=== PATIENT | female | born 1985 | race Caucasian/White ===

== ENCOUNTER 2022-05-29 12:36 | Inpatient (IN) ==
[2022-05-29] MEDS ORDERED: KETOROLAC TROMETHAMINE 15 MG/ML VIAL IV STA (13:15)
[2022-05-29] MEDS ORDERED: ONDANSETRON INJ 2 MG/ML 2 ML VIAL IV STA (13:15)
[2022-05-29] MEDS ORDERED: SODIUM CHLORIDE 0.9% 1000ML 1,000 ML IV ONE (13:15)
[2022-05-29 13:34] LABS: Hematocrit (blood only) 41.8 % (34.1-44.9); Mean Corpuscular Hemoglobin 30.8 pg (25.0-34.0); Mean Corpuscular Hgb Conc 33.5 g/dL (32.0-36.0); Mean Corpuscular Volume 92.1 fL (80.0-100.0); Mean Platelet Volume 10.3 fL (9.4-12.3); Platelet Count 397 K/uL (130-400); RDW Coefficient of Variation 13.3 % (11.5-14.5); RDW Standard Deviation 45.1 fL (36.4-46.3); Red Blood Count 4.54 M/uL (3.93-5.22); White Blood Count 18.63 K/ul (4.8-10.8)
--- NOTE | 2022-05-29 13:36 | Emergency Department Note ---
History of Present Illness General Chief complaint: Flank Pain Stated complaint: FLANK PAIN Time Seen by Provider: 05/29/22 12:44 Source: patient Mode of arrival: ambulatory Limitations: no limitations History of Present Illness Maximum Pain Intensity: 10 This patient is a 37-year-old female who presents to the emergency department for evaluation of left flank pain. Patient reports that she woke up this morning with some mild pain in the left flank which became much sharper throughout the morning. Pain does not radiate anywhere. She has associated vomiting. She did notice some difficulty urinating. Denies fever/chills. She does report a history of kidney stones which feels similar. She is from [facility] and has a urologist there. Home Medications Medication Instructions Recorded Confirmed Type albuterol sulfate 90 mcg/actuation 2 puff inhalation QID PRN 05/29/22 05/29/22 History aerosol inhaler (Ventolin HFA) Bronchospasm colestipol 1 gram tablet 1 g PO BID 05/29/22 05/29/22 History duloxetine 20 mg capsule,delayed 20 mg PO BID 05/29/22 05/29/22 History release fexofenadine 180 mg tablet 180 mg PO DAILY 05/29/22 05/29/22 History losartan 25 mg tablet 25 mg PO DAILY 05/29/22 05/29/22 History pantoprazole 40 mg tablet,delayed 40 mg PO DAILY 05/29/22 05/29/22 History release topiramate 25 mg tablet 25 mg PO DAILY 05/29/22 05/29/22 History zonisamide 100 mg capsule 100 mg PO HS 05/29/22 05/29/22 History Allergies Allergy/AdvReac Type Severity Reaction Status Date / Time latex Allergy Intermediate Rash Verified 05/29/22 20:40 aspirin AdvReac Mild Nausea Verified 05/29/22 20:40 Past Med/Surg History Medical History Allergies Cigarette smoker Depression GERD (gastroesophageal reflux disease) Hyperlipidemia Hypertension Migraine Nephrolithiasis Seizure disorder patient denies diagnosis, no longer taking zonisamide Surgical History Previous section Family History Father Kidney stones Social History Smoking Status: Current every day smoker Feels Safe at Home: Yes Review of Systems A total of 10 systems reviewed and were otherwise negative Physical Exam Vital Signs Vital Signs - 24 hr 05/29/22 12:40 05/29/22 12:57 05/29/22 13:02 Temperature 37.1 C Temperature Source Temporal Artery Scan Pulse Rate 97 H Pulse Rate [Apical] 98 H 98 H Pulse Rhythm [Apical] Regular Pulse Strength [Apical] Normal Respiratory Rate 20 18 19 Respiratory Effort / Characteristics Non-Labored Spontaneous Non-Labored Spontaneous Non-Labored Spontaneous Respiratory Depth Normal Normal Normal Respiratory Pattern Regular Regular Regular Blood Pressure 100/47 L Blood Pressure [Left Arm] 96/48 L 123/62 Blood Pressure Mean 64 Blood Pressure Mean [Left Arm] 64 82 Blood Pressure Position [Left Arm] Lying Pulse Oximetry 100 98 99 Oxygen Delivery Method Room Air Room Air Room Air Sepsis Recent Fever Within 48 Hours No Sepsis New/Unexplained Change in Mental Status No Sepsis Action Taken by Nursing No Action Required 05/29/22 13:17 05/29/22 15:00 05/29/22 17:00 Temperature Temperature Source Pulse Rate Pulse Rate [Apical] 76 87 Pulse Rhythm [Apical] Regular Regular Pulse Strength [Apical] Normal Normal Respiratory Rate 19 19 Respiratory Effort / Characteristics Non-Labored Spontaneous Non-Labored Spontaneous Respiratory Depth Normal Normal Respiratory Pattern Regular Regular Blood Pressure Blood Pressure [Left Arm] 119/62 106/81 Blood Pressure Mean Blood Pressure Mean [Left Arm] 81 89 Blood Pressure Position [Left Arm] Lying Lying Pulse Oximetry 98 98 99 Oxygen Delivery Method Room Air Room Air Room Air Sepsis Recent Fever Within 48 Hours Sepsis New/Unexplained Change in Mental Status Sepsis Action Taken by Nursing 05/29/22 19:00 Temperature Temperature Source Pulse Rate Pulse Rate [Apical] 105 H Pulse Rhythm [Apical] Pulse Strength [Apical] Respiratory Rate 19 Respiratory Effort / Characteristics Respiratory Depth Respiratory Pattern Blood Pressure Blood Pressure [Left Arm] 114/59 L Blood Pressure Mean Blood Pressure Mean [Left Arm] 77 Blood Pressure Position [Left Arm] Pulse Oximetry 98 Oxygen Delivery Method Sepsis Recent Fever Within 48 Hours Sepsis New/Unexplained Change in Mental Status Sepsis Action Taken by Nursing VITALS: Vitals are noted on the nurse's note and reviewed by myself. GENERAL: This is a 37-year-old female, in no acute distress, well-developed well-nourished. SKIN: The skin was without rashes. EYES: Pupils equal round and reactive to light and accommodation. MOUTH: Mucous membranes moist. NECK: Supple without nuchal rigidity. No lymphadenopathy. HEART: Regular rate and rhythm without murmurs gallops or rubs. LUNGS: Clear to auscultation bilaterally without wheezes, rales or rhonchi. ABDOMEN: Positive bowel sounds x 4. Soft, mild tenderness to palpation in the left upper quadrant. Left CVA tenderness. NEURO: Patient alert and oriented to person place and time. Course Administered Medications Discontinued Medications Sodium Chloride (Nss 1000ml) 1,000 mls @ 999 mls/hr IV .Q1H1M ONE Stop: 05/29/22 14:15 Last Infusion: 05/29/22 14:42 Dose: 0 mls/hr Documented By: Admin: 05/29/22 13:41 Dose: 999 mls/hr Documented By: SAMMI Ceftriaxone Sodium (Rocephin) 1,000 mg in 50 mls @ 100 mls/hr IV NOW STA Stop: 05/29/22 17:04 Last Infusion: 05/29/22 17:47 Dose: 0 mls/hr Documented By: Admin: 05/29/22 17:01 Dose: 100 mls/hr Documented By: SAMMI Ketorolac Tromethamine (Ketorolac Tromethamine 15 Mg/Ml Vial) 15 mg IV NOW STA Stop: 05/29/22 13:16 Last Admin: 05/29/22 13:41 Dose: 15 mg Documented By: SAMMI Morphine Sulfate (Morphine Sulfate 4 Mg/Ml 1 Ml Carp\Vial) 4 mg IV NOW STA Stop: 05/29/22 17:26 Last Admin: 05/29/22 17:30 Dose: 4 mg Documented By: KEL Ondansetron HCl (Ondansetron Inj 2 Mg/Ml 2 Ml Vial) 4 mg IV NOW STA Stop: 05/29/22 13:16 Last Admin: 05/29/22 13:41 Dose: 4 mg Documented By: SAMMI Medical Decision Making Differential Diagnosis Differential diagnosis includes renal calculus, pyelonephritis, musculoskeletal pain, ruptured AAA, aortic dissection, diverticulitis, perforated viscus, bowel obstruction, biliary pathology, pancreatitis, PE, pneumonia, pneumothorax, trauma, herpes zoster, malignancy, among others. Home Medications Current Medication List: was personally reviewed by me Laboratory Data Attestation: I reviewed the patient's lab results. Result diagrams: 05/29/22 12:35 05/29/22 12:35 Lab Results 05/29/22 05/29/22 05/29/22 Range/Units 12:35 12:35 15:31 WBC 18.63 H (4.8-10.8) K/ul RBC 4.54 (3.93-5.22) M/uL Hgb 14.0 (12.0-16.0) g/dl Hct 41.8 (34.1-44.9) % MCV 92.1 (80.0-100.0) fL MCH 30.8 (25.0-34.0) pg MCHC 33.5 (32.0-36.0) g/dL RDW Std Deviation 45.1 (36.4-46.3) fL RDW Coeff of Kalpesh 13.3 (11.5-14.5) % Plt Count 397 (130-400) K/uL MPV 10.3 (9.4-12.3) fL Immature Gran % (Auto) 0.5 % Neut % (Auto) 90.5 % Lymph % (Auto) 4.2 % [place] % (Auto) 4.0 % Eos % (Auto) 0.4 % Baso % (Auto) 0.4 % Neut # (Auto) 16.85 H (1.4-6.5) K/uL Lymph # (Auto) 0.79 L (1.2-3.4) K/uL [place] # (Auto) 0.75 (0.24-0.82) K/uL Eos # (Auto) 0.08 (0-0.50) K/uL Baso # (Auto) 0.07 (0-0.2) K/uL Immature Gran # (Auto) 0.09 H (0.00-0.02) K/uL Toxic Vacuolation Occasional Sodium 139 (136-145) mmol/L Potassium 3.3 L (3.5-5.1) mmol/L Chloride 104 (98-107) mmol/L Carbon Dioxide 25 (21-32) mmol/L Anion Gap 10 (3-11) BUN 13 (6-23) mg/dl Creatinine 0.86 (0.6-1.2) mg/dl Est Cr Clr Drug Dosing Not Reportable Est GFR ( Amer) 101.4 ml/min Est GFR (Non-Af Amer) 87.5 ml/min BUN/Creatinine Ratio 15.1 (10-20) Glucose 102 H (70-99(Fasting)) mg/dl Calcium 9.3 (8.5-10.1) mg/dl Total Bilirubin 0.7 (0.2-1.0) mg/dl AST 15 (13-39) U/L ALT 25 (7-52) U/L Alkaline Phosphatase 105 H (34-104) U/L Total Protein 7.8 (6.0-8.3) gm/dl Albumin 4.0 (3.4-5.0) gm/dl Globulin 3.8 (2.5-4.0) gm/dl Albumin/Globulin Ratio 1.1 (0.9-2) Urine Color Dark Yellow Urine Appearance Cloudy A (Clear) Urine pH 6.5 (4.5-7.5) Ur Specific [place] 1.021 (1.000-1.030) Urine Protein 1+ H (Negative) Urine Glucose (UA) Negative (Negative) Urine Ketones 1+ H (Negative) Urine Blood 3+ H (Negative) Urine Nitrite Positive A (Negative) Urine Bilirubin Negative (Negative) Urine Urobilinogen Negative (Negative) Ur Leukocyte Esterase 2+ H (Negative) Urine WBC (Auto) >30 H (0-5) /hpf Urine RBC (Auto) >30 H (0-4) /hpf U Hyaline Cast (Auto) 1-5 (0-5) /lpf U Epithel Cells (Auto) >30 H (0-5) /lpf Urine Bacteria (Auto) 4+ H (Negative) POC Ur Test (NEG) SARS-CoV-2, RNA, NAAT (NEGATIVE) 05/29/22 05/29/22 Range/Units 15:31 16:45 WBC (4.8-10.8) K/ul RBC (3.93-5.22) M/uL Hgb (12.0-16.0) g/dl Hct (34.1-44.9) % MCV (80.0-100.0) fL MCH (25.0-34.0) pg MCHC (32.0-36.0) g/dL RDW Std Deviation (36.4-46.3) fL RDW Coeff of Kalpesh (11.5-14.5) % Plt Count (130-400) K/uL MPV (9.4-12.3) fL Immature Gran % (Auto) % Neut % (Auto) % Lymph % (Auto) % [place] % (Auto) % Eos % (Auto) % Baso % (Auto) % Neut # (Auto) (1.4-6.5) K/uL Lymph # (Auto) (1.2-3.4) K/uL [place] # (Auto) (0.24-0.82) K/uL Eos # (Auto) (0-0.50) K/uL Baso # (Auto) (0-0.2) K/uL Immature Gran # (Auto) (0.00-0.02) K/uL Toxic Vacuolation Sodium (136-145) mmol/L Potassium (3.5-5.1) mmol/L Chloride (98-107) mmol/L Carbon Dioxide (21-32) mmol/L Anion Gap (3-11) BUN (6-23) mg/dl Creatinine (0.6-1.2) mg/dl Est Cr Clr Drug Dosing Est GFR ( Amer) ml/min Est GFR (Non-Af Amer) ml/min BUN/Creatinine Ratio (10-20) Glucose (70-99(Fasting)) mg/dl Calcium (8.5-10.1) mg/dl Total Bilirubin (0.2-1.0) mg/dl AST (13-39) U/L ALT (7-52) U/L Alkaline Phosphatase (34-104) U/L Total Protein (6.0-8.3) gm/dl Albumin (3.4-5.0) gm/dl Globulin (2.5-4.0) gm/dl Albumin/Globulin Ratio (0.9-2) Urine Color Urine Appearance (Clear) Urine pH (4.5-7.5) Ur Specific [place] (1.000-1.030) Urine Protein (Negative) Urine Glucose (UA) (Negative) Urine Ketones (Negative) Urine Blood (Negative) Urine Nitrite (Negative) Urine Bilirubin (Negative) Urine Urobilinogen (Negative) Ur Leukocyte Esterase (Negative) Urine WBC (Auto) (0-5) /hpf Urine RBC (Auto) (0-4) /hpf U Hyaline Cast (Auto) (0-5) /lpf U Epithel Cells (Auto) (0-5) /lpf Urine Bacteria (Auto) (Negative) POC Ur Test NEG (NEG) SARS-CoV-2, RNA, NAAT NEGATIVE (NEGATIVE) Imaging Data Attestation: I personally reviewed and interpreted this imaging study as follows: Radiologist's Impression: Abdomen/Pelvis CT 05/29/22 13:[address] WITHOUT CONTRAST CT DOSE: 292.03 mGy.cm HISTORY: Acute left-sided flank pain left flank pain TECHNIQUE: Multiaxial CT images of the abdomen and pelvis were performed without contrast. A dose lowering technique was utilized adhering to the principles of ALARA. COMPARISON STUDY: None. FINDINGS: Clear lung bases. Mild dependent subsegmental bibasilar atelectasis. No pneumatosis or pneumoperitoneum. The unenhanced spleen, pancreas, gallbladder, adrenal glands and liver are within normal limits with a questioned ill-defined slightly hypodense 1.7 cm indeterminate lesion of the right hepatic lobe on image 25 of series 2. Greater than 10 nonobstructing calculus of the right kidney measure up to 3 mm. Greater than 10 nonobstructing calculi left kidney measure up to 3 mm. Mild to moderate left-sided hydroureteronephrosis with reactive perinephric and periureteral stranding secondary to an obstructing 6 x 5 x 8 mm calculus of the left ureter at the level of L3. No definite additional ureteral calculi identified. Numerous pelvic basin calcifications likely represent phleboliths. Additional distal ureteral calculi are considered less likely. Marker uterus and adnexa. Aorta and IVC are unremarkable. Nonspecific mildly enlarged ret roperitoneal lymph nodes include an 11 mm periaortic lymph node of the kidney on image 170 series 3. No bowel obstruction or bowel wall thickening. The majority of the large bowel is decompressed. Normal appendix. Tiny fat filled periumbilical hernia with mild inflammatory stranding, diastases of 9 mm. Soft tissues are within normal limits. There is no acute fracture. Mild lumbar levoscoliosis. IMPRESSION: 1. Mild to moderate left-sided hydroureteronephrosis with an obstructing 8 mm calculus of the proximal left ureter at the level of L3. 2. Numerous nonobstructing bilateral renal calculi. 3. No bowel obstruction or bowel wall thickening. Normal appendix. 4. Mild nonspecific retroperitoneal lymphadenopathy. ACT 112: Negative or not required by law. The above report was generated using voice recognition software. It may contain grammatical, syntax or spelling errors. Electronically signed by: Conrado Paris M.D. 05/29/2022 2:12 PM MDM Narrative Continuous filtration operator: Order was placed for continuous filtration operator. Patient was placed on the filtration operator. Patient was noted to be in normal sinus rhythm at an initial rate of 95 bpm. The patient is a 37-year-old female who presents today complaining of left flank pain. CT scan showed an 8 mm left proximal ureteral stone. Urinalysis suggestive of infection with the presence of 4+ bacteria, leukocytes, leukocyte esterase and positive nitrates. Patient does not appear to be septic on initial evaluation. She is nontoxic in appearance and afebrile. She does have a leukocytosis of 18,000. Given concurrent obstructing kidney stone with infection, patient will need to be admitted for further care. Discussed the case with Dr. Nick of urology, who recommended antibiotics and will take her to the OR if she worsens. Patient given ceftriaxone. Patient discussed with the [facility] service who agreed to evaluate the patient for further care. Impression & Plan Calculus of proximal left ureter, UTI (urinary tract infection) Discharge Plan Visit Data Chief Complaint: Flank Pain Stated Complaint: FLANK PAIN ED Provider: Rj Brown ED Midlevel Provider: Tiffanie Gu Discharge Problem: Calculus of proximal left ureter, UTI (urinary tract infection) Discharge Instructions Interventions: ED Discharge Assessment Last Done: 05/29/22 20:04 Forms Stand Alone Forms: My [facility] Prescriptions Prescriptions: No Action topiramate 25 mg tablet 25 mg PO DAILY fexofenadine 180 mg tablet 180 mg PO DAILY zonisamide 100 mg capsule 100 mg PO HS pantoprazole 40 mg tablet,delayed release (DR/EC) 40 mg PO DAILY losartan 25 mg tablet 25 mg PO DAILY colestipol 1 gram tablet 1 g PO BID duloxetine 20 mg capsule,delayed release(DR/EC) 20 mg PO BID albuterol sulfate [Ventolin HFA] 90 mcg/actuation HFA aerosol inhaler 2 puff INHALATION QID PRN (Reason: Bronchospasm) Referrals Referrals: PCP,NO [Primary Care Provider] -
[2022-05-29 13:52] LABS: Alanine Aminotransferase 25 U/L (7-52); Albumin Globulin Ratio 1.1 (0.9-2); Alkaline Phosphatase 105 U/L (34-104); Anion Gap 10 (3-11); Aspartate Aminotransferase 15 U/L (13-39); BUN Creatinine Ratio 15.1 (10-20); Bilirubin,Total 0.7 mg/dl (0.2-1.0); Blood Urea Nitrogen 13 mg/dl (6-23); Calcium 9.3 mg/dl (8.5-10.1); Carbon Dioxide 25 mmol/L (21-32); Chloride 104 mmol/L (98-107); Est GFR (African American) 101.4 ml/min; Est GFR (Non-African American) 87.5 ml/min; Globulin 3.8 gm/dl (2.5-4.0); Glucose 102 mg/dl (70-99(Fasting)); Potassium 3.3 mmol/L (3.5-5.1); Sodium 139 mmol/L (136-145); Total Protein 7.8 gm/dl (6.0-8.3)
[2022-05-29 13:53] LABS: Basophils # (auto) 0.07 K/uL (0-0.2); Basophils % (auto) 0.4 %; Eosinophils # (auto) 0.08 K/uL (0-0.50); Eosinophils % (auto) 0.4 %; Immature Granulocytes # (auto) 0.09 K/uL (0.00-0.02); Immature Granulocytes % (auto) 0.5 %; Lymphocytes # (auto) 0.79 K/uL (1.2-3.4); Lymphocytes % (auto) 4.2 %; Monocytes # (auto) 0.75 K/uL (0.24-0.82); Neutrophils # (auto) 16.85 K/uL (1.4-6.5); Neutrophils % (auto) 90.5 %; Toxic Vacuolation Occasional
--- NOTE | 2022-05-29 14:13 | CT Scan Report ---
ABDOMEN AND PELVIS CT WITHOUT CONTRAST CT DOSE: 292.03 mGy.cm HISTORY: Acute left-sided flank pain left flank pain TECHNIQUE: Multiaxial CT images of the abdomen and pelvis were performed without contrast. A dose lo wering technique was utilized adhering to the principles of ALARA. COMPARISON STUDY: None. FINDINGS: Clear lung bases. Mild dependent subsegmental bibasilar atelectasis. No pneumatosis or pneumoperitone um. The unenhanced spleen, pancreas, gallbladder, adrenal glands and liver are within normal limits w ith a questioned ill-defined slightly hypodense 1.7 cm indeterminate lesion of the right hepatic lobe on image 25 of series 2. Greater than 10 nonobstructing calculus of the right kidney measure up to 3 mm. Greater than 10 nonob structing calculi left kidney measure up to 3 mm. Mild to moderate left-sided hydroureteronephrosis w ith reactive perinephric and periureteral stranding secondary to an obstructing 6 x 5 x 8 mm calculus of the left ureter at the level of L3. No definite additional ureteral calculi identified. Numerous pelvic basin calcifications likely represent phleboliths. Additional distal ureteral calculi are cons idered less likely. Marker uterus and adnexa. Aorta and IVC are unremarkable. Nonspecific mildly enla rged retroperitoneal lymph nodes include an 11 mm periaortic lymph node of the kidney on image 170 se sandrine 3. No bowel obstruction or bowel wall thickening. The majority of the large bowel is decompressed. Lety l appendix. Tiny fat filled periumbilical hernia with mild inflammatory stranding, diastases of 9 mm. Soft tissues are within normal limits. There is no acute fracture. Mild lumbar levoscoliosis. IMPRESSION: 1. Mild to moderate left-sided hydroureteronephrosis with an obstructing 8 mm calculus of the proxima l left ureter at the level of L3. 2. Numerous nonobstructing bilateral renal calculi. 3. No bowel obstruction or bowel wall thickening. Normal appendix. 4. Mild nonspecific retroperitoneal lymphadenopathy. ACT 112: Negative or not required by law. The above report was generated using voice recognition software. It may contain grammatical, syntax o r spelling errors. Electronically signed by: Conrado Paris M.D. 05/29/2022 2:12 PM
[2022-05-29 16:15] LABS: Appearance Urine Cloudy (Clear); Bacteria Urine Automated 4+ (Negative); Bilirubin Urine Negative (Negative); Blood Urine 3+ (Negative); Color Urine Dark Yellow; Epithelial Cell Urine Auto >30 /lpf (0-5); Glucose Urine UA Negative (Negative); Ketones Urine 1+ (Negative); Leukocyte Esterase Urine 2+ (Negative); Nitrite Urine Positive (Negative); Protein Urine 1+ (Negative); RBC Urine Automated >30 /hpf (0-4); Specific Gravity Urine 1.021 (1.000-1.030); Urobilinogen Urine Negative (Negative); WBC Urine Automated >30 /hpf (0-5); pH Urine 6.5 (4.5-7.5)
[2022-05-29] MEDS ORDERED: cefTRIAXone SODIUM 1,000 MG/50 ML BAG IV STA (16:35)
--- NOTE | 2022-05-29 17:14 | History & Physical Report ---
Date of Service May 29, 2022 Assessment & Plan (1) Hydronephrosis with urinary obstruction due to ureteral calculus: Plan: - 8 mm left ureteral stone seen with moderate hydroureteronephrosis. - With a UTI but does not appear septic. - IV Tylenol for mild pain and fever, IV morphine for moderate to severe pain. Antiemetics ordered. Supportive IVF. - Flomax HS. - Urology consulted, plan for urologic procedure in a.m., sooner if patient clinically deteriorates. - Full liquid diet now, NPO at midnight. (2) UTI (urinary tract infection): Plan: - WBC 18.63, UA with nitrate, leuk esterase, WBCs, bacteria. - Treatment with Rocephin, follow blood and urine cultures. - Patient is being treated for renal stone/hydronephrosis as above. (3) Nephrolithiasis: Plan: - In addition to develop obstructing stone, there are numerous bilateral, nonobstructing renal calculi seen. - Patient reports she has routine follow-up for her kidney stones with provider in [place]. (4) Hypertension: Plan: - On losartan 25 mg at home, will hold this given low pressures and to avoid inducing CYNTHIA on top of UTI w/ obstructing stone. (5) Hyperlipidemia: Plan: - Continue Colestid 1 mg BID, okay to hold tomorrow for procedure. (6) GERD (gastroesophageal reflux disease): Plan: - Continue Protonix 40 mg daily, will give IV for tomorrow dose. (7) Depression: Plan: - Continue Cymbalta 20 mg twice daily, okay to hold tomorrow for procedure. (8) Migraine: Plan: - Continue Topamax 25 mg daily, okay to hold tomorrow for procedure. (9) Allergies: Plan: - Continue Raisa 180 mg daily, okay to hold tomorrow for procedure. (10) Seizure disorder: Plan: - Medication list states patient is taking zonisamide PO HS for seizure, however patient states she has been off this for some time, not actually diagnosed with seizure disorder. Plan - Admit to med/surg. - SCDs for VTE ppx. - Full Code. History of Present Illness Chief Complaint: Back pain, chills, nausea x 1 day Primary Care Provider: NO PCP Jazzy Multani is a 37-year-old female with past medical history significant for hypertension, hyperlipidemia, GERD, migraine headaches, depression, and kidney stones who presents today with flank pain. She is from the [facility], here temporarily for work at the local [employer]. Two weeks ago, she has had some mild crampy back pain, which she attributed to her period which had recently started. Her pain was always very mild and mangeable, eventually resolving and her period ended two days ago, however today she redeveloped left-sided low back pain and hematuria. Her back pain has quickly become very sharp and more severe ove the course of the harvinder, and is associated with subjective fever and chills over the past 24 hours. She is nauseous and had a few episodes of nonbloody emesis. She denies dysuria or urinary retention. She has taken Tylenol and ibuprofen with no relief. She has a history of renal stones, has had undergone lithotripsy twice, most recently in 2012 at an outside hospital and has passed several stones on her own. In ED, she presents tachycardic with heart rate in the 90s, low/normotensive BPs, otherwise signs within normal limits. Labs significant for leukocytosis, 18.63, potassium 3.3, UA with blood, nitrates, leuk esterase, WBCs and bacteria. Blood and urine cultures collected, pending. CT A/P reveals mild to moderate left-sided hydroureteronephrosis with obstructing 8 mm calculus in proximal left ureter, with numerous nonobstructing bilateral renal calculi and mild retroperitoneal lymphadenopathy. No evidence of bowel obstruction or bowel wall thickening, appendix appears normal. Allergies Allergy/AdvReac Type Severity Reaction Status Date / Time latex Allergy Intermediate Rash Verified 05/29/22 20:40 aspirin AdvReac Mild Nausea Verified 05/29/22 20:40 Home Medications Medication Instructions Recorded Confirmed Type albuterol sulfate 90 mcg/actuation 2 puff inhalation QID PRN 05/29/22 05/29/22 History aerosol inhaler (Ventolin HFA) Bronchospasm colestipol 1 gram tablet 1 g PO BID 05/29/22 05/29/22 History duloxetine 20 mg capsule,delayed 20 mg PO BID 05/29/22 05/29/22 History release fexofenadine 180 mg tablet 180 mg PO DAILY 05/29/22 05/29/22 History losartan 25 mg tablet 25 mg PO DAILY 05/29/22 05/29/22 History pantoprazole 40 mg tablet,delayed 40 mg PO DAILY 05/29/22 05/29/22 History release topiramate 25 mg tablet 25 mg PO DAILY 05/29/22 05/29/22 History zonisamide 100 mg capsule 100 mg PO HS 05/29/22 05/29/22 History Past Med/Surg History Medical History Allergies Cigarette smoker Depression GERD (gastroesophageal reflux disease) Hyperlipidemia Hypertension Migraine Nephrolithiasis Seizure disorder patient denies diagnosis, no longer taking zonisamide Surgical History Previous section Family History Father Kidney stones Social History Smoking Status: Current every day smoker Second Hand Exposure: Yes; Hx Alcohol Use: No Hx Substance Use: No Preferred Language: Sinhala [employer] Required: No Beliefs That Will Affect Care: None Current Living Situation: Boarding Home Current Living Situation Comment: travels 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 fairs and lives in a boarding house Feels Safe at Home: Yes Assistive Devices: None Review of Systems Review of Systems: Constitutional: Fever/chills x24 hours; no weakness, fatigue, myalgias, anorexia, night sweats Eyes: No diplopia, no worsening or blurred vision ENT: normal hearing, no trouble swallowing Respiratory: No cough, sputum, dyspnea at rest or on exertion Cardiovascular: No chest pain, tightness or palpitations Abdomen: Nausea, vomiting since last evening; no no pain, diarrhea or constipation : Hematuria x1 day; no dysuria, increased urgency/frequency, urinary retention Musculoskeletal left lower back pain x2 weeks, worse today; no joint pain, calf pain, swelling Neurologic: No weakness, numbness/tingling, or balance problems Psychiatric: No anxiety or depression Skin: No rash or itch Physical Exam Physical Exam: General: awake, alert, no apparent distress Head: Normocephalic, atraumatic ENT: PERRL, EOMI, no pharyngeal exudate, mucous membranes moist Chest: Clear to auscultation, on room air, no adventitious breath sounds Cardiac: Regular rate and rhythm, no murmur, no JVD, normal peripheral pulses, good capillary refill Abdominal: L CVA tenderness; NABS x 4 quadrants, soft, nontender to palpation, no rebound, guarding or tenderness Extremities: Normal inspection, no peripheral edema or erythema, calfs nonte nder to palpation Psych: Normal mood and affect Neuro: AAO x 3, strength intact bilaterally and rated 5/5, no motor deficits, speech is clear, no peripheral sensory deficits Skin: no rash or erythema Results & Data Results & Data ([facility]) Vital Signs (Past 12 Hours) Vital Signs Temp Pulse Pulse Resp BP BP Pulse Ox 05/29/22 15:00 76 19 119/62 98 05/29/22 13:17 98 05/29/22 13:02 98 H 19 123/62 99 05/29/22 12:57 98 H 18 96/48 L 98 05/29/22 12:40 37.1 C 97 H 20 100/47 L 100 O2 Del Method 05/29/22 15:00 Room Air 05/29/22 13:17 Room Air 05/29/22 13:02 Room Air 05/29/22 12:57 Room Air 05/29/22 12:40 Room Air Laboratory Results Abnormal lab results 05/29/22 05/29/22 05/29/22 Range/Units 12:35 12:35 15:31 WBC 18.63 H (4.8-10.8) K/ul Neut # (Auto) 16.85 H (1.4-6.5) K/uL Lymph # (Auto) 0.79 L (1.2-3.4) K/uL Immature Gran # (Auto) 0.09 H (0.00-0.02) K/uL Potassium 3.3 L (3.5-5.1) mmol/L Glucose 102 H (70-99(Fasting)) mg/dl Alkaline Phosphatase 105 H (34-104) U/L Urine Appearance Cloudy A (Clear) Urine Protein 1+ H (Negative) Urine Ketones 1+ H (Negative) Urine Blood 3+ H (Negative) Urine Nitrite Positive A (Negative) Ur Leukocyte Esterase 2+ H (Negative) Urine WBC (Auto) >30 H (0-5) /hpf Urine RBC (Auto) >30 H (0-4) /hpf U Epithel Cells (Auto) >30 H (0-5) /lpf Urine Bacteria (Auto) 4+ H (Negative) Diagnostic Findings Abdomen/Pelvis CT 05/29/22 13:[address] WITHOUT CONTRAST CT DOSE: 292.03 mGy.cm HISTORY: Acute left-sided flank pain left flank pain TECHNIQUE: Multiaxial CT images of the abdomen and pelvis were performed without contrast. A dose lowering technique was utilized adhering to the principles of ALARA. COMPARISON STUDY: None. FINDINGS: Clear lung bases. Mild dependent subsegmental bibasilar atelectasis. No pneumatosis or pneumoperitoneum. The unenhanced spleen, pancreas, gallbladder, adrenal glands and liver are within normal limits with a questioned ill-defined slightly hypodense 1.7 cm indeterminate lesion of the right hepatic lobe on image 25 of series 2. Greater than 10 nonobstructing calculus of the right kidney measure up to 3 mm. Greater than 10 nonobstructing calculi left kidney measure up to 3 mm. Mild to moderate left-sided hydroureteronephrosis with reactive perinephric and periureteral stranding secondary to an obstructing 6 x 5 x 8 mm calculus of the left ureter at the level of L3. No definite additional ureteral calculi identified. Numerous pelvic basin calcifications likely represent phleboliths. Additional distal ureteral calculi are considered less likely. Marker uterus and adnexa. Aorta and IVC are unremarkable. Nonspecific mildly enlarged retroperitoneal lymph nodes include an 11 mm periaortic lymph node of the kidney on image 170 series 3. No bowel obstruction or bowel wall thickening. The majority of the large bowel is decompressed. Normal appendix. Tiny fat filled periumbilical hernia with mild inflammatory stranding, diastases of 9 mm. Soft tissues are within normal limits. There is no acute fracture. Mild lumbar levoscoliosis. IMPRESSION: 1. Mild to moderate left-sided hydroureteronephrosis with an obstructing 8 mm calculus of the proximal left ureter at the level of L3. 2. Numerous nonobstructing bilateral renal calculi. 3. No bowel obstruction or bowel wall thickening. Normal appendix. 4. Mild nonspecific retroperitoneal lymphadenopathy. ACT 112: Negative or not required by law. The above report was generated using voice recognition software. It may contain grammatical, syntax or spelling errors. Electronically signed by: Conrado Paris M.D. 05/29/2022 2:12 PM Code Status & VTE Plan Code Status Full Code. Supervising Physician Co-Signing Physician Notes Date of service 05/29/2022: I saw and evaluated the patient on 05/29/2022. I reviewed and agree with CELINE's note as written except/additionally thus: Historyleft flank pain; known renal calculus disease Exam: Looks unwell; left flank tenderness Medical decision making: Obstructive uropathy, pyelonephritis;IV fluids, antibiotics, urology consulted; await cultures PG Care Time/CCT Total # of Minutes Spent Total Time Spent with Patient: Total time spent is greater than 50% in coordination of care (as documented) at patient's floor/unit and/or counseling patient: Coding Level of Care Code 69487 Initial Inpt Care Lvl 2 Diagnoses Hydronephrosis with urinary obstruction due to ureteral calculus N13.2 UTI (urinary tract infection) N39.0 Nephrolithiasis N20.0 Hypertension I10 Hyperlipidemia E78.5 GERD (gastroesophageal reflux disease) K21.9 Depression F32.A Migraine G43.909 Allergies T78.40XA Seizure disorder G40.909
[2022-05-29] MEDS ORDERED: MoRPHine SULFATE 4 MG/ML 1 ML CARP\\VIAL IV STA (17:25)
--- NOTE | 2022-05-29 19:58 | Urology Consultation ---
Date of Consultation May 29, 2022 Assessment & Plan (1) Nephrolithiasis: The patient is being admitted on the hospitalist service. We recommend proceeding as follows: Keep the patient n.p.o. for the present time Provide resuscitation with intravenous fluids Patient has been started on Rocephin due to her concern for urinary tract infection. Urine culture has been sent. Would recommend continue antibiotics until urine culture is back at which time antibiotics can be tailored based on results of this At the time of my exam the patient was noted to be quite tachycardic with a heart rate in the 120s. Her blood pressure was also low with a systolic of 90. I discussed with the treating nurse who notes that the patient was not initially tachycardic. I further discussed case with my attending physician, Dr. Nick. There is concern that due to the patient's infected urine and tachycardic that the patient may become septic and he would therefore take the patient to the operating room for cystoscopy and possible ureteral stent this evening. Additional recommendations be forthcoming based on operative findings as well as the patient's clinical course as it unfolds. Attending note: Independently assessed, analyzed, examined, and interviewed. Agree with information as above. Patient came in with stone and signs of UTI. Had undergone resuscitation and antibiotic management. Patient has subsequently decompensated with an increasing tachycardia, hypotension, and significant chills and ill feelings. Patient's large obstructing left stone was reviewed on imaging. This was reviewed interpreted by myself. Does have a moderate amount of hydronephrosis with obstructing stone. Patient is feeling considerably ill. Has worsened since admission. Due to patient's increasing illness conversation was had about urgent stent placement due to worry of developing sepsis. Risks and benefits discussed at length for procedure. These include bleeding, infection, injury to surrounding tissues or organs, and risks associated with anesthesia. Patient states understanding and agrees to proceed. Will sign consent and proceed. Plan for cystoscopy with left stent placement. Patient will likely need close monitoring after procedure. Will likely need ant ibiotic management and hydration and close monitoring until patient becomes more stable and overall improved. History of Present Illness Reason for Consultation: Nephrolithiasis History of Present Illness This is a 37-year-old female who presented to [facility] today secondary to left flank pain. She said the pain began earlier this morning and she thought it was pain really related to her menstrual cycle. The pain became worse throughout the day and she developed associated nausea and vomiting along with worsening left flank pain radiating to the left side of her abdomen. She does report some intermittent hematuria. She does report some dysuria. She does report having a history of kidney stones in the past. She was able to pass some of the stones but she did require lithotripsy she believes in 2012. This was performed at a hospital in [place], [place]. She does not note any modifying factors to her pain other than medicines that were administered in the emergency department. Today in the emergency department the patient had labs and imaging which I independently reviewed. The patient was noted to have mild to moderate left- sided hydroureteronephrosis with an obstructing 8 mm kidney stone in the proximal left ureter. Labs include a CBC her white blood cell count was 18.6. Hemoglobin, hematocrit, platelet count were normal. Chemistry profile showed sodium, BUN, and creatinine were normal. Her potassium was slightly low at 3.3. Urinalysis showed positive nitrites as well as 2+ leukocyte Estrace and greater than 30 white blood cells per high-power field. There is 4+ bacteria on the study. A test was negative. COVID test was negative. At the time of my interview the patient was resting comfortably in bed in no distress. Allergies Allergy/AdvReac Type Severity Reaction Status Date / Time latex Allergy Intermediate Rash Verified 05/29/22 20:40 aspirin AdvReac Mild Nausea Verified 05/29/22 20:40 Home Medications Medication Instructions Recorded Confirmed Type albuterol sulfate 90 mcg/actuation 2 puff inhalation QID PRN 05/29/22 05/29/22 History aerosol inhaler (Ventolin HFA) Bronchospasm colestipol 1 gram tablet 1 g PO BID 05/29/22 05/29/22 History duloxetine 20 mg capsule,delayed 20 mg PO BID 05/29/22 05/29/22 History release fexofenadine 180 mg tablet 180 mg PO DAILY 05/29/22 05/29/22 History losartan 25 mg tablet 25 mg PO DAILY 05/29/22 05/29/22 History pantoprazole 40 mg tablet,delayed 40 mg PO DAILY 05/29/22 05/29/22 History release topiramate 25 mg tablet 25 mg PO DAILY 05/29/22 05/29/22 History zonisamide 100 mg capsule 100 mg PO HS 05/29/22 05/29/22 History Patient History Medical History Allergies Cigarette smoker Depression GERD (gastroesophageal reflux disease) Hyperlipidemia Hypertension Migraine Nephrolithiasis Seizure disorder patient denies diagnosis, no longer taking zonisamide Surgical History Previous section Family History Father Kidney stones Social History Smoking Status: Current every day smoker Feels Safe at Home: Yes Review of Systems Constitutional: no fever and no chills Ear, Nose, Mouth, Throat: no ear pain Respiratory: no cough and no dyspnea Cardiovascular: no chest pain Gastrointestinal: + abdominal pain (Left-sided, radiating from left flank), + nausea and + vomiting Genitourinary: as per Subjective / HPI Musculoskeletal: + back pain (Left flank) Integumentary: no rash Neurologic: no localized weakness Physical Exam Constitutional: WD/WN, vitals as above Eyes: no conjunctival abnormality ENMT: Ears: no external ear abnormality Neck: trachea midline Respiratory: normal respiratory effort; no respiratory distress and no labored breathing Cardiovascular: Rate/Rhythm: regular rate and regular rhythm Gastrointestinal (Abdomen): Abdomen is soft, nonrigid, and nondistended. There is mild pain with palpation in the left lower quadrant. No rebound tenderness or guarding is noted. Musculoskeletal: No calf tenderness Skin: no rashes Neurologic: moves all extremities Psychiatric: A+Ox3, euthymic affect Genitourinary: + CVA tenderness (Left-sided) Results & Data ([facility]) Vital Signs (Past 12 Hours) Vital Signs Temp Pulse Pulse Resp BP BP Pulse Ox 05/29/22 19:00 105 H 19 114/59 L 98 05/29/22 17:00 87 19 106/81 99 05/29/22 15:00 76 19 119/62 98 05/29/22 13:17 98 05/29/22 13:02 98 H 19 123/62 99 05/29/22 12:57 98 H 18 96/48 L 98 05/29/22 12:40 37.1 C 97 H 20 100/47 L 100 O2 Del Method 05/29/22 19:00 05/29/22 17:00 Room Air 05/29/22 15:00 Room Air 05/29/22 13:17 Room Air 05/29/22 13:02 Room Air 05/29/22 12:57 Room Air 05/29/22 12:40 Room Air PG Care Time/CCT Total # of Minutes Spent Total Time Spent with Patient: Total time spent is greater than 50% in coordination of care (as documented) at patient's floor/unit and/or counseling patient: Coding Level of Care Code 41156 Inpt Consult Level 5 Diagnoses Nephrolithiasis N20.0
[2022-05-29] MEDS ORDERED: LABETALOL HCL IV 5 MG/ML 20ML IV PRN (20:46)
[2022-05-29] MEDS ORDERED: ATROPINE SULFATE 0.1 MG/ML 10ML SYR IV PRN (20:46)
[2022-05-29] MEDS ORDERED: ONDANSETRON INJ 2 MG/ML 2 ML VIAL IV PRN ×2 (20:46→22:25)
[2022-05-29] MEDS ORDERED: ePHEDrine sulfate 50 MG/ML AMP IV PRN (20:46)
[2022-05-29] MEDS ORDERED: MEPERIDINE HCL 25 MG/ML CARP/VIAL IV PRN (20:46)
[2022-05-29] MEDS ORDERED: HYDROmorphone INJ 1 MG/ML SYRINGE IV PRN (20:46)
[2022-05-29] MEDS ORDERED: fentaNYL citrate 100 MCG/2 ML VIAL IV PRN (20:46)
[2022-05-29] MEDS ORDERED: PHENYLEPHRINE 100MCG/ML 5ML SYR IV PRN (20:46)
--- NOTE | 2022-05-29 20:51 | Anesthesiology Consultation ---
Date of Service May 29, 2022 Assessment & Plan (1) Encounter for pre-operative examination: Chart Review Chart Review: Acceptable Risk for Surgery and Patient NOT seen in Pre Admission Testing Consults Requested none History Surgery Operation Date: 05/29/22 21:00 Proposed Procedures p Cystoscopy - Lexa Nick DO Height/Weight Height: 5 ft 4 in Weight: 66.2 kg Allergies Allergy/AdvReac Type Severity Reaction Status Date / Time latex Allergy Intermediate Rash Verified 05/29/22 20:40 aspirin AdvReac Mild Nausea Verified 05/29/22 20:40 Medications Home Medications Medication Instructions Recorded Confirmed Last Taken albuterol sulfate 90 mcg/actuation 2 puff inhalation QID PRN 05/29/22 05/29/22 Unknown aerosol inhaler (Ventolin HFA) Bronchospasm colestipol 1 gram tablet 1 g PO BID 05/29/22 05/29/22 Unknown duloxetine 20 mg capsule,delayed 20 mg PO BID 05/29/22 05/29/22 Unknown release fexofenadine 180 mg tablet 180 mg PO DAILY 05/29/22 05/29/22 Unknown losartan 25 mg tablet 25 mg PO DAILY 05/29/22 05/29/22 Unknown pantoprazole 40 mg tablet,delayed 40 mg PO DAILY 05/29/22 05/29/22 Unknown release topiramate 25 mg tablet 25 mg PO DAILY 05/29/22 05/29/22 Unknown zonisamide 100 mg capsule 100 mg PO HS 05/29/22 05/29/22 Unknown NPO Date Last Intake of Fluids: 05/29/22 Time Last Intake of Fluids: 08:00 Last Intake of Fluids Comment: 05/28/2022 Date Last Intake of Solids: 05/28/22 Time Last Intake of Solids: 00:00 Past Medical History Medical History Allergies Cigarette smoker Depression GERD (gastroesophageal reflux disease) Hyperlipidemia Hypertension Migraine Nephrolithiasis Seizure disorder patient denies diagnosis, no longer taking zonisamide Past Family History Family History Father Kidney stones Past Surgical History Surgical History Previous section Social History Smoking Status: Current every day smoker Physical Exam Vital Signs Last Vital Signs Temp 37.1 C 08/16/22 12:40 Pulse 105 H 05/29/22 19:00 Resp 19 05/29/22 19:00 BP 114/59 L 05/29/22 19:00 Pulse Ox 98 05/29/22 19:00 O2 Del Method 05/29/22 17:00 Testing Laboratory Results 05/29/22 12:35 05/29/22 12:35 Urine Color Dark Yellow 05/29/22 15:31 Urine Appearance Cloudy (Clear) A 05/29/22 15:31 Urine pH 6.5 (4.5-7.5) 05/29/22 15:31 Ur Specific [place] 1.021 (1.000-1.030) 05/29/22 15:31 Urine Protein 1+ (Negative) H 05/29/22 15:31 Urine Glucose (UA) Negative (Negative) 05/29/22 15:31 Urine Ketones 1+ (Negative) H 05/29/22 15:31 Urine Nitrite Positive (Negative) A 05/29/22 15:31 Ur Leukocyte Esterase 2+ (Negative) H 05/29/22 15:31 Urine WBC (Auto) >30 /hpf (0-5) H 05/29/22 15:31 Urine RBC (Auto) >30 /hpf (0-4) H 05/29/22 15:31 U Hyaline Cast (Auto) 1-5 /lpf (0-5) 05/29/22 15:31 U Epithel Cells (Auto) >30 /lpf (0-5) H 05/29/22 15:31 Urine Bacteria (Auto) 4+ (Negative) H 05/29/22 15:31 05/29/22 15:31 POC Ur Test NEG
[2022-05-29] MEDS ORDERED: fentaNYL citrate 100 MCG/2 ML VIAL ONE ×2 (20:59→21:14)
[2022-05-29] MEDS ORDERED: MIDAZOLAM HCL 1 MG/ML 2ML VIAL ONE (20:59)
[2022-05-29] MEDS ORDERED: LIDOCAINE 2% MPF LOCAL 5 ML VIAL INFIL ONE (21:04)
[2022-05-29] MEDS ORDERED: PROPOFOL IV EMULSION 10 MG/ML 20 ML VIAL IV ONE (21:04)
--- NOTE | 2022-05-29 21:26 | Operative Report ---
PG Post Operative Report Pre & Post Diagnosis Operation Date: 05/29/22 21:00 Pre-Op Diagnosis: FLANK PAIN, Obstructing Stone. Sepsis with tachycardia and Hypotension Post Op : Same I identified the patient and participated in the time-out.: Yes Procedure Operation Date: 05/29/22 21:00 Actual Procedures p Cystoscopy with left urine aspiration, retrograde pyelogram, and stent placement. - Lexa Nick, Surgeon Lexa Nick, II, DO [employer] None Estimated Blood Loss 1 Findings Consistent with Post-Op Diagnosis Stent placed in good position. Cloudy dark urine from left renal pelvis. Specimens Left Renal Pelvis Urine Drains 6 Fr x 24 Left Anesthesia Type MAC Complications none Disposition Disposition: Recovery Room Indications Patient with obstruction. Developed signs of sepsis with tachycardia and hypotension and singificant chills. Risks and benefits discussed at length. Description of Procedure Patient was consented and brought back to the operating room. Patient was placed under anesthesia in the supine position and moved to the dorsal lithotomy position. Patient was prepped and draped in the regular sterile fashion. A time out was completed. A 30degree Cystoscope was placed into the bladder and the entire bladder was examined. The UO's were identified. The UO was cannulized with a catheter, urine was aspirated from the renal pelvis, and a retrograde pyelogram was completed. Urine was sent for culture. A wire was then placed. With the wire in place, a 6 Fr Double J stent was pl aced. It was confirmed with fluoroscopy. With the stent in place, the bladder was emptied. The scope was removed. The patient was cleaned, aroused from anesthesia, and transferred to the pacu in stable condition having tolerated the procedure well with no complications. I was present and participated in all aspects of the procedure. The patient will be monitored in the PACU until transferred. Will monitor over night and await culture results. Will need IV antibiotics until can de-esculate after culture results. Will likely need 7-14 days of antibiotics and then plan for treatment of stone. I attest to the content of the Intraoperative Record and any orders documented therein. Any exceptions are noted below.
[2022-05-29] MEDS ORDERED: OPTIRAY 300 INJ ONE (21:37)
--- NOTE | 2022-05-29 21:37 | Anesthesiology Progress Note ---
Date of Service May 29, 2022 Anesthesia Post Procedure Vital Signs Vital Signs: Temp Pulse Pulse Resp BP BP Pulse Ox 05/29/22 19:00 105 H 19 114/59 L 98 05/29/22 17:00 87 19 106/81 99 05/29/22 15:00 76 19 119/62 98 05/29/22 13:17 98 05/29/22 13:02 98 H 19 123/62 99 05/29/22 12:57 98 H 18 96/48 L 98 05/29/22 12:40 37.1 C 97 H 20 100/47 L 100 O2 Del Method 05/29/22 19:00 05/29/22 17:00 Room Air 05/29/22 15:00 Room Air 05/29/22 13:17 Room Air 05/29/22 13:02 Room Air 05/29/22 12:57 Room Air 05/29/22 12:40 Room Air Transfer of Care Handoff Completed per policy Notes Mental Status: alert / awake / arousable Patient Amnestic to Procedure: Yes Nausea / Vomiting: adequately controlled Pain: adequately controlled Airway Patency, RR, SpO2: stable & adequate BP & HR: stable & adequate and see Notes below Hydration State: stable & adequate Anesthetic Complications: no major complications apparent and Pt Satisfied with anesthetic care Notes: The patient is awake and comfortable. She remains tachycardic and is febrile likely from her nephrolithiasis.
[2022-05-29] MEDS ORDERED: ACETAMINOPHEN 325 MG TAB PO STA (21:42)
[2022-05-29] MEDS ORDERED: ACETAMINOPHEN 325 MG TAB ONE (21:44)
[2022-05-29] MEDS ORDERED: POLYETHYLENE (MIRALAX) 17 GM PACK PO PRN (22:25)
[2022-05-29] MEDS ORDERED: MoRPHine SULFATE 4 MG/ML 1 ML CARP\\VIAL IV PRN (22:25)
[2022-05-29] MEDS: COLESTIPOL HCL 1 GM TAB PO SCH (23:38)
[2022-05-29] MEDS: DULoxetine HCL 20 MG CAP PO SCH (23:38)
[2022-05-29] MEDS: TAMSULOSIN HCL 0.4 MG CAP PO SCH (23:38)
[2022-05-29] MEDS: NORMOSOL-R 1,000 ML IV SCH (23:50)
--- NOTE | 2022-05-30 01:53 | Communication Note ---
Date of Service: May 30, 2022 This patient underwent cystoscopy with ureteral stent placement earlier this evening by Dr. Nick due to concern for sepsis/obstructing ureteral stone and hydronephrosis. Since patient's procedure she remains febrile. I was contacted by RN at approximately 1:30 AM on 05/30/2022 noting the patient now has a temperature of 103.2. She remains tachycardic with a heart rate in the 140s. Despite her fever and tachycardia she is currently normotensive with a blood pressure of 109/68. I visited with the patient at bedside within 5 minutes of my notification by RN and she notes that she feels fatigued with occasional chills and feels generally unwell due to her fever. She denies any nausea or vomiting at the present time. She notes that she does feel hungry. She notes that she is not having any significant pain at the present time. Due to her persistent fevers and tachycardia we will plan on escalating her antibiotics to provide pseudomonal coverage. I have placed an order for Invanz 1 g IV every 24 hours with the first dose to be given now. I have contacted pharmacy to send the first dose up to the floor soon as possible. In addition, to promote drainage of any infected urine I have offered to place a Gan catheter for the patient and she is agreeable to this. We will continue her IV fluids which are currently running at 150 cc/h. Additional recommendations be forthcoming based on her clinical course. I discussed the above plan with my attending Dr. Nick who has no additional recommendations other than what is noted above
[2022-05-30] MEDS: ERTAPENEM SODIUM 1,000 MG in SYRINGE 0 ML IV SCH (02:06)
[2022-05-30] MEDS: MoRPHine SULFATE 2 MG/ML CARP IV PRN ×3 (02:12→14:58)
[2022-05-30 04:40] LABS: A calco-baum cmplx NotReported Not Detected (NotDetected); Bact fragilis Not Reported Not Detected (NotDetected); C auris Not Reported Not Detected (NotDetected); CTX-M Resistant Gene Not Detected (NotDetected); Calbicans Not Reported Not Detected (NotDetected); Candida glabrata Not Reported Not Detected (NotDetected); Candida krusei Not Reported Not Detected (NotDetected); Cneoformans/gatti Not Reported Not Detected (NotDetected); Cparapsilosis Not Reported Not Detected (NotDetected); Ctropicalis Not Reported Not Detected (NotDetected); E cloacae compx Not Reported Not Detected (NotDetected); Efaecalis Not Reported Not Detected (NotDetected); Efaecium Not Reported Not Detected (NotDetected); Enterobacterales DETECTED (NotDetected); Enterobacterales Not Reported DETECTED (NotDetected); Escherichia coli Not Reported Not Detected (NotDetected); H influenzae Not Reported Not Detected (NotDetected); IMP Resistant Gene Not Detected (NotDetected); K aerogenes Not Reported Not Detected (NotDetected); KPC Resistant Gene Not Detected (NotDetected); Koxytoca Not Reported Not Detected (NotDetected); Kpneumoniae grp Not Reported DETECTED (NotDetected); Lmonocyt Not Reported Not Detected (NotDetected); N meningitidis Not Reported Not Detected (NotDetected); NDM Resistant Gene Not Detected (NotDetected); OXA 48 Like Resistant Gene Not Detected (NotDetected); P aeruginosa Not Reported Not Detected (NotDetected); Proteus spp Not Reported Not Detected (NotDetected); Salmonella spp Not Reported Not Detected (NotDetected); Smarcescens Not Reported Not Detected (NotDetected); Staph lugdunensis Not Reported Not Detected (NotDetected); Staph spp. Not Reported Not Detected (NotDetected); Staphaureus Not Reported Not Detected (NotDetected); Staphepi Not Reported Not Detected (NotDetected); Stenmaltophilia Not Reported Not Detected (NotDetected); Strep agal(GrpB) Not Reported Not Detected (NotDetected); Strep pneum Not Reported Not Detected (NotDetected); Strep pyog (GrpA) Not Reported Not Detected (NotDetected); Strep spp Not Reported Not Detected (NotDetected); VIM Resistant Gene Not Detected (NotDetected); mcr-1 Colistin Resistant Gene Not Detected (NotDetected)
[2022-05-30 04:57] LABS: Klebsiella pneumoniae group DETECTED (NotDetected)
[2022-05-30] MEDS ORDERED: KETOROLAC TROMETHAMINE 15 MG/ML VIAL IV ONE (05:16)
[2022-05-30] MEDS: NORMOSOL-R 1,000 ML IV SCH (05:24)
[2022-05-30] MEDS ORDERED: PANTOprazole 40 MG in SYRINGE 0 ML IV SCH (07:00)
--- NOTE | 2022-05-30 07:57 | Fluoroscopy Report ---
INTRAOPERATIVE RADIOGRAPHS CLINICAL HISTORY: Left-sided ureteral stent placement. Fluoroscopy time: 10 seconds. FINDINGS: 4 spot images of the left abdomen are correlated with abdominal CT dated 05/29/2022. The ini tial image shows a catheter in the left renal collecting system. Contrast opacification shows mild hy dronephrosis. A mobile filling defect within the collecting system may represent a large kidney stone . The final 2 images show the proximal and distal ends of a left ureteral stent in appropriate positi on. IMPRESSION: Intraoperative images from a left ureteral stent placement procedure as above. Electronically signed by: Jamel Lloyd M.D. 05/30/2022 7:56 AM
[2022-05-30 08:26] LABS: Hematocrit (blood only) 33.9 % (34.1-44.9); Hemoglobin 11.4 g/dl (12.0-16.0); Mean Corpuscular Hemoglobin 30.6 pg (25.0-34.0); Mean Corpuscular Hgb Conc 33.6 g/dL (32.0-36.0); Mean Corpuscular Volume 91.1 fL (80.0-100.0); Mean Platelet Volume 10.3 fL (9.4-12.3); Platelet Count 316 K/uL (130-400); RDW Coefficient of Variation 13.6 % (11.5-14.5); RDW Standard Deviation 45.8 fL (36.4-46.3); Red Blood Count 3.72 M/uL (3.93-5.22)
[2022-05-30 08:37] LABS: Basophils # (auto) 0.11 K/uL (0-0.2); Basophils % (auto) 0.4 %; Eosinophils # (auto) 0.05 K/uL (0-0.50); Eosinophils % (auto) 0.2 %; Immature Granulocytes # (auto) 0.22 K/uL (0.00-0.02); Immature Granulocytes % (auto) 0.7 %; Lymphocytes # (auto) 0.95 K/uL (1.2-3.4); Lymphocytes % (auto) 3.2 %; Monocytes # (auto) 1.28 K/uL (0.24-0.82); Monocytes % (auto) 4.3 %; Neutrophils # (auto) 26.99 K/uL (1.4-6.5); Neutrophils % (auto) 91.2 %; Toxic Vacuolation Occasional
[2022-05-30 08:38] LABS: BUN Creatinine Ratio 14.3 (10-20); Calcium 7.4 mg/dl (8.5-10.1); Creatinine Clr Calc Pharmacy 95.5 ml/min; Est GFR (African American) 115.9 ml/min; Potassium 3.6 mmol/L (3.5-5.1)
[2022-05-30] MEDS: FEXOFENADINE HCL 180 MG TAB PO SCH (08:51)
[2022-05-30] MEDS: DULoxetine HCL 20 MG CAP PO SCH ×2 (08:51→21:09)
[2022-05-30] MEDS: COLESTIPOL HCL 1 GM TAB PO SCH ×2 (08:51→22:33)
[2022-05-30] MEDS: TOPIRAMATE 25 MG TAB PO SCH (08:51)
[2022-05-30] MEDS: ACETAMINOPHEN 325 MG TAB PO PRN ×2 (09:01→21:26)
--- NOTE | 2022-05-30 09:57 | Urology Progress Note ---
Date of Service May 30, 2022 Assessment & Plan (1) Calculus of proximal left ureter: (2) UTI (urinary tract infection): Plan 37 yo F admitted with an 8 mm obstructing left proximal ureteral stone and presumed UTI. - Pt POD#1 s/p emergent cystoscopy and left ureteral stent placement. - Pt was tachycardic and febrile overnight (Tmax 39.6). Afebrile this AM, HR appears to be improving. - Subjectively feeling better this AM. - Lab work reviewed - creatinine 0.77, WBC increased to 29.60. - Urine culture and intraop kidney culture pending. - Blood cultures prelim gram negative bacilli. - Antibiotics changed overnight from Ceftriaxone --> Ertapenem - follow cultures. - Tolerating left ureteral stent with minimal bother. - Maintain Gan catheter at this time for maximum drainage until patient stabilizes. - Contacted by RN that patient urinated around catheter and it was suspected to be outside the urethra - removed. - Instructions given to replace Gan catheter. - Continue supportive care, antibiotics, and management per primary service. - Urology will follow along. Discussed clinical course with patient and the need for stone treatment after the infection is treated. She is understanding. She is in [facility] and lives near [place]. She wishes to receive treatment near home likely through [facility]. Admission and Anticipated Discharge Date Admission Date: May 29, 2022 Supervising Physician Co-Signing Physician Notes Discussed patient with CELINE. Agree with plan. Patient is status post stent with positive blood cultures. Not unusual to have fevers and inflammatory response post stent placement. Recommend replacing Gan catheter for maximal drainage of infected system. Subjective Patient seen and examined at bedside this AM. Pt tachycardic and febrile overnight. Subjectively feeling better this morning. Reports left flank pain earlier this AM, relieved with IV Morphine, currently comfortable. No abdominal or suprapubic pain. Gan intact and draining clear yellow urine, small output since insertion per RN. No nausea or vomiting. No fever or chills at present. Review of Systems Constitutional: as per Subjective / HPI Gastrointestinal: as per Subjective / HPI Genitourinary: as per Subjective / HPI Physical Exam Constitutional: well developed and well nourished; no acute distress Respiratory: normal respiratory effort and able to speak in complete sentences; no respiratory distress and no labored breathing Cardiovascular: Extremities: no pedal edema Gastrointestinal (Abdomen): Inspection/Auscultation: abdomen normal to inspection; abdomen not distended Percussion/Palpation: abdomen soft; abdomen nontender and no guarding Musculoskeletal: Head/Neck/Chest: normocephalic and head atraumatic Extremities: extremities normal to inspection Neurologic: moves all extremities and awake Psychiatric: Orientation: alert and oriented x 3 Genitourinary: no CVA tenderness Gan intact and draining clear yellow urine. Results & Data ([facility]) Vital Signs (Past 12 Hours) Vital Signs Temp Pulse Resp BP Pulse Ox Pulse Ox O2 Del Method 05/30/22 07:29 106/69 05/30/22 07:02 36.9 C 111 H 14 94/59 L 97 Room Air 05/30/22 01:28 39.6 C H 146 H 20 109/68 95 Room Air 05/30/22 00:04 39.3 C H 134 H 20 106/64 97 Room Air 05/29/22 23:05 38.1 C H 130 H 20 103/68 93 Room Air 05/29/22 22:30 37.9 C H 134 H 14 102/58 L 94 Room Air 05/29/22 22:25 38.1 C H 133 H 14 99/54 L 94 Room Air 05/29/22 22:25 97 05/29/22 22:00 39.4 C H 127 H 12 109/58 L 94 Room Air O2 Del Method 05/30/22 07:29 05/30/22 07:02 05/30/22 01:28 05/30/22 00:04 05/29/22 23:05 05/29/22 22:30 05/29/22 22:25 05/29/22 22:25 Room Air 05/29/22 22:00 PG Care Time/CCT Total # of Minutes Spent Total Time Spent with Patient: Total time spent is greater than 50% in coordination of care (as documented) at patient's floor/unit and/or counseling patient: Coding Level of Care Code 02755 Subseq Hosp Care Lvl 2 Diagnoses Calculus of proximal left ureter N20.1 UTI (urinary tract infection) N39.0
--- NOTE | 2022-05-30 15:49 | Hospitalist Progress Note ---
Date of Service May 30, 2022 Assessment & Plan (1) Sepsis: Plan: Without organ dysfunction, without septic shockgram-negative, secondary to obstructive uropathy secondary to ureteric calculus and subsequent pyelonephritisawait sensitivity of Klebsiella; urology switched to ertapenemat present will defer; continue volume (2) Hydronephrosis with urinary obstruction due to ureteral calculus: Plan: - Underwent stentingdefinitive treatment later (3) Bacteremia due to Klebsiella pneumoniae: Plan: Due to ureteric calculus resulting in obstructive uropathy and secondary pyelonephritisas above, see #1 (4) Pyelonephritis: Plan: Due to ureteric calculus resulting in urinary tract obstructionas above, see #1 (5) Nephrolithiasis: Plan: - In addition to develop obstructing stone, there are numerous bilateral, nonobstructing renal calculi seen. - Patient reports she has routine follow-up for her kidney stones with provider in [place]. Should get metabolic management if not already on the sameshe did not seem to know type of stone (6) Hypertension: Plan: - On losartan 25 mg at homehold given current acute septic physiology. (7) Hyperlipidemia: Plan: - Continue Colestid 1 mg BID, okay to hold tomorrow for procedure. (8) GERD (gastroesophageal reflux disease): Plan: - Continue Protonix 40 mg daily, will give IV for tomorrow dose. (9) Depression: Plan: - Continue Cymbalta 20 mg twice daily, okay to hold tomorrow for procedure. (10) Migraine: Plan: - Continue Topamax 25 mg daily, okay to hold tomorrow for procedure. (11) Allergies: Plan: - Continue Raisa 180 mg daily, okay to hold tomorrow for procedure. (12) Seizure disorder: Plan: - Medication list states patient is taking zonisamide PO HS for seizure, however patient states she has been off this for some time, not actually diagnosed with seizure disorder. Plan Follow mild anemialikely inflammatory Admission and Anticipated Discharge Date Admission Date: May 29, 2022 Results & Data Results & Data ([facility]) Vital Signs (Past 12 Hours) Vital Signs Temp Pulse Pulse Resp BP Pulse Ox O2 Del Method 05/30/22 14:53 37.0 C 96 H 14 104/66 95 Room Air 05/30/22 11:27 36.5 C 99 H 18 105/65 95 Room Air 05/30/22 07:29 106/69 05/30/22 07:02 36.9 C 111 H 14 94/59 L 97 Room Air Laboratory Results Laboratory Results - last 24 hr 05/29/22 05/29/22 05/29/22 15:31 16:45 16:54 WBC RBC Hgb Hct MCV MCH MCHC RDW Std Deviation RDW Coeff of Kalpesh Plt Count MPV Immature Gran % (Auto) Neut % (Auto) Lymph % (Auto) [place] % (Auto) Eos % (Auto) Baso % (Auto) Neut # (Auto) Lymph # (Auto) [place] # (Auto) Eos # (Auto) Baso # (Auto) Immature Gran # (Auto) Toxic Vacuolation Sodium Potassium Chloride Carbon Dioxide Anion Gap BUN Creatinine Est Cr Clr Drug Dosing Est GFR ( Amer) Est GFR (Non-Af Amer) BUN/Creatinine Ratio Glucose Calcium Urine Color Dark Yellow Urine Appearance Cloudy A Urine pH 6.5 Ur Specific Clubb 1.021 Urine Protein 1+ H Urine Glucose (UA) Negative Urine Ketones 1+ H Urine Blood 3+ H Urine Nitrite Positive A Urine Bilirubin Negative Urine Urobilinogen Negative Ur Leukocyte Esterase 2+ H Urine WBC (Auto) >30 H Urine RBC (Auto) >30 H U Hyaline Cast (Auto) 1-5 U Epithel Cells (Auto) >30 H Urine Bacteria (Auto) 4+ H Enterobacterales (PCR) DETECTED A K. pneumoniae group (PCR) DETECTED A SARS-CoV-2, RNA, NAAT NEGATIVE mcr-1 [place] Res Gene PCR Not Detected blaIMP Car res Gene PCR Not Detected KPC-Carbap Res Gene PCR Not Detected blaNDM Car Res Gene PCR Not Detected OXA-48 Carbapenem Resis Gene (PCR) Not Detected blaVIM Car Res Gene PCR Not Detected CTX-M Gene Resistance (PCR) Not Detected Bld Cult ID Panel PCR See PCR Comment 05/30/22 05/30/22 07:29 07:29 WBC 29.60 H D RBC 3.72 L Hgb 11.4 L Hct 33.9 L MCV 91.1 MCH 30.6 MCHC 33.6 RDW Std Deviation 45.8 RDW Coeff of Kalpesh 13.6 Plt Count 316 MPV 10.3 Immature Gran % (Auto) 0.7 Neut % (Auto) 91.2 Lymph % (Auto) 3.2 [place] % (Auto) 4.3 Eos % (Auto) 0.2 Baso % (Auto) 0.4 Neut # (Auto) 26.99 H Lymph # (Auto) 0.95 L [place] # (Auto) 1.28 H Eos # (Auto) 0.05 Baso # (Auto) 0.11 Immature Gran # (Auto) 0.22 H Toxic Vacuolation Occasional Sodium 138 Potassium 3.6 Chloride 106 Carbon Dioxide 23 Anion Gap 9 BUN 11 Creatinine 0.77 Est Cr Clr Drug Dosing 95.5 Est GFR ( Amer) 115.9 Est GFR (Non-Af Amer) 100.0 BUN/Creatinine Ratio 14.3 Glucose 95 Calcium 7.4 L Urine Color Urine Appearance Urine pH Ur Specific Clubb Urine Protein Urine Glucose (UA) Urine Ketones Urine Blood Urine Nitrite Urine Bilirubin Urine Urobilinogen Ur Leukocyte Esterase Urine WBC (Auto) Urine RBC (Auto) U Hyaline Cast (Auto) U Epithel Cells (Auto) Urine Bacteria (Auto) Enterobacterales (PCR) K. pneumoniae group (PCR) SARS-CoV-2, RNA, NAAT mcr-1 Colistin Res Gene PCR blaIMP Car res Gene PCR KPC-Carbap Res Gene PCR blaNDM Car Res Gene PCR OXA-48 Carbapenem Resis Gene (PCR) blaVIM Car Res Gene PCR CTX-M Gene Resistance (PCR) Bld Cult ID Panel PCR PG Care Time/CCT Total # of Minutes Spent Total Time Spent with Patient: Total time spent is greater than 50% in coordination of care (as documented) at patient's floor/unit and/or counseling patient: Coding Level of Care Code 22081 Subseq Hosp Care Lvl 2 Diagnoses Sepsis A41.9 Hydronephrosis with urinary obstruction due to ureteral calculus N13.2 Bacteremia due to Klebsiella pneumoniae R78.81; B96.1 Pyelonephritis N12 Nephrolithiasis N20.0 Hypertension I10 Hyperlipidemia E78.5 GERD (gastroesophageal reflux disease) K21.9 Depression F32.A Migraine G43.909 Allergies T78.40XA Seizure disorder G40.909
[2022-05-30] MEDS ORDERED: cefTRIAXone SODIUM 1,000 MG in DEXTROSE 5% 50 ML IV SCH (17:00)
[2022-05-30] MEDS: TAMSULOSIN HCL 0.4 MG CAP PO SCH (21:10)
[2022-05-31] MEDS: ERTAPENEM SODIUM 1,000 MG in SYRINGE 0 ML IV SCH (02:10)
[2022-05-31 07:28] LABS: Hematocrit (blood only) 32.2 % (34.1-44.9); Hemoglobin 10.8 g/dl (12.0-16.0); Mean Corpuscular Hemoglobin 30.7 pg (25.0-34.0); Mean Corpuscular Hgb Conc 33.5 g/dL (32.0-36.0); Mean Corpuscular Volume 91.5 fL (80.0-100.0); Mean Platelet Volume 10.4 fL (9.4-12.3); Platelet Count 318 K/uL (130-400); RDW Coefficient of Variation 13.5 % (11.5-14.5); RDW Standard Deviation 45.5 fL (36.4-46.3); Red Blood Count 3.52 M/uL (3.93-5.22); White Blood Count 23.57 K/ul (4.8-10.8)
[2022-05-31 07:47] LABS: Basophils # (auto) 0.06 K/uL (0-0.2); Basophils % (auto) 0.3 %; Eosinophils # (auto) 0.11 K/uL (0-0.50); Eosinophils % (auto) 0.5 %; Immature Granulocytes # (auto) 0.46 K/uL (0.00-0.02); Lymphocytes # (auto) 0.89 K/uL (1.2-3.4); Lymphocytes % (auto) 3.8 %; Monocytes # (auto) 1.38 K/uL (0.24-0.82); Monocytes % (auto) 5.9 %; Neutrophils # (auto) 20.67 K/uL (1.4-6.5); Neutrophils % (auto) 87.5 %; Toxic Vacuolation Occasional
[2022-05-31 08:15] LABS: Albumin Level 2.6 gm/dl (3.4-5.0); Bilirubin,Total 0.3 mg/dl (0.2-1.0); Calcium 7.9 mg/dl (8.5-10.1); Creatinine Clr Calc Pharmacy 91.9 ml/min; Est GFR (African American) 110.7 ml/min; Est GFR (Non-African American) 95.5 ml/min; Globulin 2.7 gm/dl (2.5-4.0); Phosphorus 2.4 mg/dl (2.5-4.9); Total Protein 5.3 gm/dl (6.0-8.3)
[2022-05-31] MEDS: COLESTIPOL HCL 1 GM TAB PO SCH ×2 (08:17→21:17)
[2022-05-31] MEDS: FEXOFENADINE HCL 180 MG TAB PO SCH (08:17)
[2022-05-31] MEDS: DULoxetine HCL 20 MG CAP PO SCH ×2 (08:17→20:11)
[2022-05-31] MEDS: TOPIRAMATE 25 MG TAB PO SCH (08:17)
[2022-05-31] MEDS: PANTOprazole 40 MG TAB PO SCH (08:18)
[2022-05-31] MEDS: SODIUM CHLORIDE 0.9% 1000ML 1,000 ML IV SCH ×3 (08:18→21:18)
--- NOTE | 2022-05-31 09:14 | Urology Progress Note ---
Date of Service May 31, 2022 Assessment & Plan (1) Bacteremia due to Klebsiella pneumoniae: (2) Calculus of proximal left ureter: Plan 37 yo F admitted with an 8 mm obstructing left proximal ureteral stone s/p stent on 05/29 with blood cultures growing klebsiella. Patient reports subjectively feeling better but remains febrile and tachycardic. Urine culture is pending and blood cultures are prelim Klebsiella. Currently on ceftriaxone. Continue antibiotics. If patient is persistently febrile recommend broadening. Maintain Gan catheter until patient is afebrile for 24 hours Leukocytosis improving. Creatinine stable. Patient would prefer to have stone treatment in July when she will return home to the [facility]. This is reasonable as the stent can stay in for 3 months without issue. Recommended that she get stone treatment soon after returning home. Urology will follow along. Admission and Anticipated Discharge Date Admission Date: May 29, 2022 Subjective Febrile overnight up to 39.5 Celsius. Continues to be tachycardic. Blood pressures are fairly stable. Leukocytosis is downtrending to 23.5 from 29.6. Hemoglobin stable. Creatinine stable at 0.8. Blood cultures growing Klebsiella pneumoniae. Urine output 0.69 ml/kg/hr. Currently on ceftriaxone. Patient reports feeling subjectively better today. Review of Systems Review of Systems: 14 point review of systems negative outside of what is listed above in HPI Physical Exam Physical Exam: General: Alert and oriented, no acute distress HEENT: Normocephalic, mucous membranes moist Pulmonary: Nonlabored respirations Abdomen: Nondistended : Gan catheter draining clear yellow urine. Extremities: Moves all 4 spontaneously Neuro: No gross deficits Skin: Warm, dry, no rashes noted Results & Data ([facility]) Vital Signs (Past 12 Hours) Vital Signs Temp Pulse Pulse Resp BP Pulse Ox O2 Del Method 05/31/22 07:42 37.7 C H 119 H 20 105/67 91 Room Air 05/31/22 02:29 36.7 C 05/30/22 22:29 38.0 C H 121 H 17 103/63 90 Room Air 05/30/22 21:16 39.5 C H PG Care Time/CCT Total # of Minutes Spent Total Time Spent with Patient: Total time spent is greater than 50% in coordination of care (as documented) at patient's floor/unit and/or counseling patient: [place] [address] Subseq Hosp Care Lv 2 Patient Type Established Diagnoses Bacteremia due to Klebsiella pneumoniae R78.81; B96.1 Calculus of proximal left ureter N20.1
[2022-05-31] MEDS: cefTRIAXone SODIUM 2,000 MG in DEXTROSE 5% 50 ML IV SCH (09:48)
[2022-05-31] MEDS: ACETAMINOPHEN 325 MG TAB PO PRN (14:33)
[2022-05-31] MEDS: POT PHOSPHATE MONOBASIC W/ SOD TAB PO SCH ×2 (14:33→20:12)
--- NOTE | 2022-05-31 16:06 | Hospitalist Progress Note ---
Date of Service May 31, 2022 Assessment & Plan (1) Sepsis: Plan: Without organ dysfunction, without septic shockurinary source, pansensitive Klebsiella in urine and blood;secondary to obstructive uropathy secondary to ureteric calculus and subsequent pyelonephritisswitch to Rocephin; continue volume; surveillance cultures (2) Hydronephrosis with urinary obstruction due to ureteral calculus: Plan: - Underwent stentingdefinitive treatment later (3) Bacteremia due to Klebsiella pneumoniae: Plan: Due to ureteric calculus resulting in obstructive uropathy and secondary pyelonephritisas above, see #1 (4) Pyelonephritis: Plan: Due to ureteric calculus resulting in urinary tract obstructionas above, see #1 (5) Nephrolithiasis: Plan: - In addition to develop obstructing stone, there are numerous bilateral, nonobstructing renal calculi seen. - Patient reports she has routine follow-up for her kidney stones with provider [place]. Should get metabolic management if not already on the sameshe did not seem to know type of stone (6) Hypertension: Plan: - On losartan 25 mg at homehold given current acute septic physiology. (7) Hyperlipidemia: Plan: - Continue Colestid 1 mg BID (8) GERD (gastroesophageal reflux disease): Plan: - Continue Protonix 40 mg daily (9) Depression: Plan: - Continue Cymbalta 20 mg twice daily, okay to hold tomorrow for procedure. (10) Migraine: Plan: - Continue Topamax 25 mg daily, okay to hold tomorrow for procedure. (11) Allergies: Plan: - Continue Raisa 180 mg daily, okay to hold tomorrow for procedure. (12) Seizure disorder: Plan: - Medication list states patient is taking zonisamide PO HS for seizure, however patient states she has been off this for some time, not actually diagnosed with seizure disorder. Plan Follow mild anemialikely inflammatory Admission and Anticipated Discharge Date Admission Date: May 29, 2022 Subjective Follow-up of left flank pain, sepsis, post ureteric stentfeels much better; still tachycardic and febrile overnight Physical Exam Physical Exam: Constitutional and general: No acute distress, looks biologic age Head and face: No puffiness, atraumatic Eyes: No scleral icterus, extraocular movements normal Neck: Supple, no JVD Musculoskeletal: No acute joint swelling, no bony abnormalities Skin/dermatologic/integument: No rash, no purpura Hematologic and lymphatic: pallor +, no petechia Gastrointestinal/abdomen: Nondistended, soft, nonacute Neurologic: Cranial nerves intact, nonfocal Psychiatry: Awake, alert, pleasant, communicative Cardiovascular: Heart rhythm regular, no rub, no murmur, no gallop Respiratory: Chest movements equal, no use of accessory muscles, no adventitious sounds Extremities: No edema, no cyanosis Results & Data Results & Data ([facility]) Vital Signs (Past 12 Hours) Vital Signs Temp Pulse Resp BP Pulse Ox O2 Del Method 05/31/22 08:20 36.7 C 108 H 05/31/22 07:42 37.7 C H 119 H 20 105/67 91 Room Air Laboratory Results Laboratory Results - last 24 hr 05/31/22 05/31/22 06:48 06:48 WBC 23.57 H RBC 3.52 L Hgb 10.8 L Hct 32.2 L MCV 91.5 MCH 30.7 MCHC 33.5 RDW Std Deviation 45.5 RDW Coeff of Kalpesh 13.5 Plt Count 318 MPV 10.4 Immature Gran % (Auto) 2.0 Neut % (Auto) 87.5 Lymph % (Auto) 3.8 [place] % (Auto) 5.9 Eos % (Auto) 0.5 Baso % (Auto) 0.3 Neut # (Auto) 20.67 H Lymph # (Auto) 0.89 L [place] # (Auto) 1.38 H Eos # (Auto) 0.11 Baso # (Auto) 0.06 Immature Gran # (Auto) 0.46 H Toxic Vacuolation Occasional Sodium 138 Potassium 4.0 Chloride 107 Carbon Dioxide 25 Anion Gap 6 BUN 13 Creatinine 0.80 Est Cr Clr Drug Dosing 91.9 Est GFR ( Amer) 110.7 Est GFR (Non-Af Amer) 95.5 Fasting Glucose 95 Calcium 7.9 L Phosphorus 2.4 L Magnesium 2.0 Total Bilirubin 0.3 AST 10 L ALT 13 Alkaline Phosphatase 172 H Total Protein 5.3 L D Albumin 2.6 L Globulin 2.7 Albumin/Globulin Ratio 1.0 PG Care Time/CCT Total # of Minutes Spent Total Time Spent with Patient: Total time spent is greater than 50% in coordination of care (as documented) at patient's floor/unit and/or counseling patient: Coding Level of Care Code 18244 Subseq Hosp Care Lvl 2 Diagnoses Sepsis A41.9 Hydronephrosis with urinary obstruction due to ureteral calculus N13.2 Bacteremia due to Klebsiella pneumoniae R78.81; B96.1 Pyelonephritis N12 Nephrolithiasis N20.0 Hypertension I10 Hyperlipidemia E78.5 GERD (gastroesophageal reflux disease) K21.9 Depression F32.A Migraine G43.909 Allergies T78.40XA Seizure disorder G40.909
[2022-05-31] MEDS: TAMSULOSIN HCL 0.4 MG CAP PO SCH (20:12)
[2022-05-31] MEDS: MELATONIN 3 MG TAB PO PRN (23:05)
[2022-06-01] MEDS: SODIUM CHLORIDE 0.9% 1000ML 1,000 ML IV SCH ×2 (05:24→13:22)
[2022-06-01] MEDS: DULoxetine HCL 20 MG CAP PO SCH ×2 (08:05→20:56)
[2022-06-01] MEDS: PANTOprazole 40 MG TAB PO SCH (08:05)
[2022-06-01] MEDS: COLESTIPOL HCL 1 GM TAB PO SCH ×2 (08:05→20:56)
[2022-06-01] MEDS: FEXOFENADINE HCL 180 MG TAB PO SCH (08:05)
[2022-06-01] MEDS: POT PHOSPHATE MONOBASIC W/ SOD TAB PO SCH (08:05)
[2022-06-01] MEDS: TOPIRAMATE 25 MG TAB PO SCH (08:05)
[2022-06-01] MEDS: cefTRIAXone SODIUM 2,000 MG in DEXTROSE 5% 50 ML IV SCH (08:10)
[2022-06-01 08:24] LABS: Basophils # (auto) 0.03 K/uL (0-0.2); Basophils % (auto) 0.2 %; Eosinophils # (auto) 0.09 K/uL (0-0.50); Eosinophils % (auto) 0.6 %; Hematocrit (blood only) 29.9 % (34.1-44.9); Hemoglobin 9.9 g/dl (12.0-16.0); Immature Granulocytes # (auto) 0.17 K/uL (0.00-0.02); Immature Granulocytes % (auto) 1.2 %; Lymphocytes # (auto) 1.36 K/uL (1.2-3.4); Lymphocytes % (auto) 9.6 %; Mean Corpuscular Hemoglobin 30.3 pg (25.0-34.0); Mean Corpuscular Hgb Conc 33.1 g/dL (32.0-36.0); Mean Corpuscular Volume 91.4 fL (80.0-100.0); Mean Platelet Volume 10.5 fL (9.4-12.3); Monocytes # (auto) 1.08 K/uL (0.24-0.82); Monocytes % (auto) 7.6 %; Neutrophils # (auto) 11.48 K/uL (1.4-6.5); Neutrophils % (auto) 80.8 %; Platelet Count 355 K/uL (130-400); RDW Coefficient of Variation 13.6 % (11.5-14.5); RDW Standard Deviation 46.2 fL (36.4-46.3); Red Blood Count 3.27 M/uL (3.93-5.22); White Blood Count 14.21 K/ul (4.8-10.8)
[2022-06-01 08:56] LABS: Albumin Level 2.5 gm/dl (3.4-5.0); Bilirubin,Total 0.3 mg/dl (0.2-1.0); Calcium 7.5 mg/dl (8.5-10.1); Est GFR (African American) 130.1 ml/min; Est GFR (Non-African American) 112.3 ml/min; Globulin 2.6 gm/dl (2.5-4.0); Magnesium 1.8 mg/dl (1.7-2.4); Phosphorus 3.5 mg/dl (2.5-4.9); Potassium 3.7 mmol/L (3.5-5.1); Total Protein 5.1 gm/dl (6.0-8.3)
--- NOTE | 2022-06-01 09:35 | Urology Progress Note ---
Date of Service June 01, 2022 Assessment & Plan (1) Bacteremia due to Klebsiella pneumoniae: (2) Calculus of proximal left ureter: Plan 37 yo F admitted with an 8 mm obstructing left proximal ureteral stone s/p stent on 05/29 with blood cultures growing klebsiella. - POD#3 s/p cystoscopy, left kidney aspiration and left ureteral stent placement. - Patient reports subjectively feeling better. - Tolerating left ureteral stent without bother. - Afebrile overnight, labs reviewed - Leukocytosis improving, creatinine stable. - Urine culture and blood cultures 05/29 grew out Klebsiella. Currently on ceftriaxone. Continue antibiotics. - Repeat blood cultures 05/31 prelim no growth x 24 hours. - Okay to discontinue Gan catheter. Monitor for void. - Patient would prefer to have stone treatment in July when she will return home to the [facility]. This is reasonable as the stent can stay in for 3 months without issue. Recommended that she get stone treatment soon after returning home. - Urology will sign off. Admission and Anticipated Discharge Date Admission Date: May 29, 2022 Supervising Physician Co-Signing Physician Notes Discussed patient with CELINE. Agree with plan. Subjective Patient awake and resting in bed. No acute issues overnight. Subjectively doing well and feeling ready to go home. No pain at present. Gan intact, patent and draining clear yellow urine. No nausea or vomiting. No fever or chills. Review of Systems Constitutional: as per Subjective / HPI Gastrointestinal: as per Subjective / HPI Genitourinary: as per Subjective / HPI Physical Exam Constitutional: well developed and well nourished; no acute distress and not ill appearing Respiratory: normal respiratory effort and able to speak in complete sentences; no respiratory distress and no labored breathing Gastrointestinal (Abdomen): Inspection/Auscultation: abdomen normal to inspection; abdomen not distended Neurologic: moves all extremities and awake Psychiatric: Orientation: alert and oriented x 3 Genitourinary: Gan intact, patent and draining clear yellow urine Results & Data ([facility]) Vital Signs (Past 12 Hours) Vital Signs Temp Pulse Resp BP Pulse Ox O2 Del Method 06/01/22 06:56 37.2 C 87 16 117/70 94 Room Air 06/01/22 00:01 36.9 C 99 H 16 103/63 96 Room Air 05/31/22 23:06 37.5 C 95 H 16 108/65 94 Room Air PG Care Time/CCT Total # of Minutes Spent Total Time Spent with Patient: Total time spent is greater than 50% in coordination of care (as documented) at patient's floor/unit and/or counseling patient: Coding Level of Care Code 40202 Subseq Hosp Care Lvl 2 Diagnoses Bacteremia due to Klebsiella pneumoniae R78.81; B96.1 Calculus of proximal left ureter N20.1
--- NOTE | 2022-06-01 16:56 | Hospitalist Progress Note ---
Date of Service June 01, 2022 Assessment & Plan (1) Sepsis: Plan: Without organ dysfunction, without septic shockurinary source, pansensitive Klebsiella in urine and blood;secondary to obstructive uropathy secondary to ureteric calculus and subsequent pyelonephritiscontinue Rocephin; stop IV fluids; 1 more day in house at least (2) Hydronephrosis with urinary obstruction due to ureteral calculus: Plan: - Underwent stentingdefinitive treatment later (3) Bacteremia due to Klebsiella pneumoniae: Plan: Due to ureteric calculus resulting in obstructive uropathy and secondary pyelonephritisas above, see #1 (4) Pyelonephritis: Plan: Due to ureteric calculus resulting in urinary tract obstructionas above, see #1 (5) Nephrolithiasis: Plan: - In addition to develop obstructing stone, there are numerous bilateral, nonobstructing renal calculi seen. - Patient reports she has routine follow-up for her kidney stones with provider in [place]. Should get metabolic management if not already on the sameshe did not seem to know type of stone (6) Hypertension: Plan: - On losartan 25 mg at homestill on hold; BP very acceptable (7) Hyperlipidemia: Plan: - Continue Colestid 1 mg BID (8) GERD (gastroesophageal reflux disease): Plan: - Continue Protonix 40 mg daily (9) Depression: Plan: - Continue Cymbalta 20 mg twice daily, okay to hold tomorrow for procedure. (10) Migraine: Plan: - Continue Topamax 25 mg daily, okay to hold tomorrow for procedure. (11) Allergies: Plan: - Continue Raisa 180 mg daily, okay to hold tomorrow for procedure. (12) Seizure disorder: Plan: - Medication list states patient is taking zonisamide PO HS for seizure, however patient states she has been off this for some time, not actually diagnosed with seizure disorder. Plan Follow mild anemialikely inflammatory Admission and Anticipated Discharge Date Admission Date: May 29, 2022 Subjective Follow-up of presentation with flank pain, feversdoing much better Physical Exam Physical Exam: Constitutional and general: No acute distress, looks biologic age Head and face: No puffiness, atraumatic Eyes: No scleral icterus, extraocular movements normal Neck: Supple, no JVD Musculoskeletal: No acute joint swelling, no bony abnormalities Skin/dermatologic/integument: No rash, no purpura Hematologic and lymphatic: pallor +, no petechia Gastrointestinal/abdomen: Nondistended, soft, nonacute Neurologic: Cranial nerves intact, nonfocal Psychiatry: Awake, alert, pleasant, communicative Cardiovascular: Heart rhythm regular, no rub, no murmur, no gallop Respiratory: Chest movements equal, no use of accessory muscles, no adventitious sounds Extremities: No edema, no cyanosis Results & Data Results & Data ([facility]) Vital Signs (Past 12 Hours) Vital Signs Temp Pulse Pulse Resp BP Pulse Ox O2 Del Method 06/01/22 15:22 36.8 C 79 16 109/66 94 Room Air 06/01/22 06:56 37.2 C 87 16 117/70 94 Room Air Laboratory Results Laboratory Results - last 24 hr 06/01/22 06/01/22 07:41 07:41 WBC 14.21 H RBC 3.27 L Hgb 9.9 L Hct 29.9 L MCV 91.4 MCH 30.3 MCHC 33.1 RDW Std Deviation 46.2 RDW Coeff of Kaplesh 13.6 Plt Count 355 MPV 10.5 Immature Gran % (Auto) 1.2 Neut % (Auto) 80.8 Lymph % (Auto) 9.6 [place] % (Auto) 7.6 Eos % (Auto) 0.6 Baso % (Auto) 0.2 Neut # (Auto) 11.48 H Lymph # (Auto) 1.36 [place] # (Auto) 1.08 H Eos # (Auto) 0.09 Baso # (Auto) 0.03 Immature Gran # (Auto) 0.17 H Sodium 141 Potassium 3.7 Chloride 113 H Carbon Dioxide 21 Anion Gap 7 BUN 9 Creatinine 0.70 Est Cr Clr Drug Dosing 105.0 Est GFR ( Amer) 130.1 Est GFR (Non-Af Amer) 112.3 Fasting Glucose 90 Calcium 7.5 L Phosphorus 3.5 D Magnesium 1.8 Total Bilirubin 0.3 AST 9 L ALT 11 Alkaline Phosphatase 70 Total Protein 5.1 L Albumin 2.5 L Globulin 2.6 Albumin/Globulin Ratio 1.0 PG Care Time/CCT Total # of Minutes Spent Total Time Spent with Patient: Total time spent is greater than 50% in coordination of care (as documented) at patient's floor/unit and/or counseling patient: Coding Level of Care Code 09983 Subseq Hosp Care Lvl 2 Diagnoses Sepsis A41.9 Hydronephrosis with urinary obstruction due to ureteral calculus N13.2 Bacteremia due to Klebsiella pneumoniae R78.81; B96.1 Pyelonephritis N12 Nephrolithiasis N20.0 Hypertension I10 Hyperlipidemia E78.5 GERD (gastroesophageal reflux disease) K21.9 Depression F32.A Migraine G43.909 Allergies T78.40XA Seizure disorder G40.909
[2022-06-01] MEDS: TAMSULOSIN HCL 0.4 MG CAP PO SCH (20:56)
[2022-06-01] MEDS: MELATONIN 3 MG TAB PO PRN (20:58)
[2022-06-01] MEDS: ACETAMINOPHEN 325 MG TAB PO PRN (21:54)
[2022-06-02] MEDS: COLESTIPOL HCL 1 GM TAB PO SCH (08:10)
[2022-06-02] MEDS: FEXOFENADINE HCL 180 MG TAB PO SCH (08:10)
[2022-06-02] MEDS: TOPIRAMATE 25 MG TAB PO SCH (08:10)
[2022-06-02] MEDS: DULoxetine HCL 20 MG CAP PO SCH (08:10)
[2022-06-02] MEDS: PANTOprazole 40 MG TAB PO SCH (08:10)
[2022-06-02 08:12] LABS: Basophils # (auto) 0.05 K/uL (0-0.2); Basophils % (auto) 0.5 %; Eosinophils # (auto) 0.17 K/uL (0-0.50); Eosinophils % (auto) 1.6 %; Hematocrit (blood only) 30.6 % (34.1-44.9); Hemoglobin 10.3 g/dl (12.0-16.0); Immature Granulocytes # (auto) 0.09 K/uL (0.00-0.02); Immature Granulocytes % (auto) 0.9 %; Lymphocytes % (auto) 13.3 %; Mean Corpuscular Hemoglobin 30.1 pg (25.0-34.0); Mean Corpuscular Hgb Conc 33.7 g/dL (32.0-36.0); Mean Corpuscular Volume 89.5 fL (80.0-100.0); Mean Platelet Volume 10.3 fL (9.4-12.3); Monocytes # (auto) 0.98 K/uL (0.24-0.82); Monocytes % (auto) 9.3 %; Neutrophils # (auto) 7.84 K/uL (1.4-6.5); Neutrophils % (auto) 74.4 %; Platelet Count 414 K/uL (130-400); RDW Coefficient of Variation 13.6 % (11.5-14.5); RDW Standard Deviation 45.1 fL (36.4-46.3); Red Blood Count 3.42 M/uL (3.93-5.22); White Blood Count 10.53 K/ul (4.8-10.8)
[2022-06-02] MEDS: cefTRIAXone SODIUM 2,000 MG in DEXTROSE 5% 50 ML IV SCH (08:16)
[2022-06-02 08:44] LABS: Albumin Globulin Ratio 0.9 (0.9-2); Albumin Level 2.7 gm/dl (3.4-5.0); Bilirubin,Total 0.4 mg/dl (0.2-1.0); Est GFR (African American) 139.2 ml/min; Est GFR (Non-African American) 120.1 ml/min; Globulin 2.9 gm/dl (2.5-4.0); Magnesium 1.8 mg/dl (1.7-2.4); Phosphorus 3.8 mg/dl (2.5-4.9); Potassium 3.7 mmol/L (3.5-5.1); Total Protein 5.6 gm/dl (6.0-8.3)
--- NOTE | 2022-06-02 08:58 | Discharge Summary ---
Date of Service June 02, 2022 Admission HPI Per Admitting Provider Jazzy Multani is a 37-year-old female with past medical history significant for hypertension, hyperlipidemia, GERD, migraine headaches, depression, and kidney stones who presents today with flank pain. She is from the [facility], here temporarily for work at the local [employer]. Two weeks ago, she has had some mild crampy back pain, which she attributed to her period which had recently started. Her pain was always very mild and mangeable, eventually resolving and her period ended two days ago, however today she redeveloped left-sided low back pain and hematuria. Her back pain has quickly become very sharp and more severe ove the course of the harvinder, and is associated with subjective fever and chills over the past 24 hours. She is nauseous and had a few episodes of nonbloody emesis. She denies dysuria or urinary retention. She has taken Tylenol and ibuprofen with no relief. She has a history of renal stones, has had undergone lithotripsy twice, most recently in 2012 at an outside hospital and has passed several stones on her own. In ED, she presents tachycardic with heart rate in the 90s, low/normotensive BPs, otherwise signs within normal limits. Labs significant for leukocytosis, 18.63, potassium 3.3, UA with blood, nitrates, leuk esterase, WBCs and bacteria. Blood and urine cultures collected, pending. CT A/P reveals mild to moderate left-sided hydroureteronephrosis with obstructin g 8 mm calculus in proximal left ureter, with numerous nonobstructing bilateral renal calculi and mild retroperitoneal lymphadenopathy. No evidence of bowel obstruction or bowel wall thickening, appendix appears normal. Principal Diagnosis Sepsis secondary to gram-negative bacteremia (Klebsiella) secondary to pyelonephritis secondary to obstructive uropathy secondary to ureteric calculus Discharge Data Allergies Allergy/AdvReac Type Severity Reaction Status Date / Time latex Allergy Intermediate Rash Verified 05/29/22 20:40 aspirin AdvReac Mild Nausea Verified 05/29/22 20:40 Consultations 05/29/22 22:25 Consult Urology Routine Procedures Performed Operation Date: 05/29/22 21:00 Actual Procedures p Cystoscopy with left urine aspiration, retrograde pyelogram, and left stent placement(Left) - Lexa Nick, Ordered Studies 05/29/22 13:17 CT abd pelvis wo con Stat 05/29/22 20:30 FL retrograde includes kub Routine Hospital Course (1) Sepsis: Without organ dysfunction, without septic shockurinary source, pansensitive Klebsiella in urine and blood;secondary to obstructive uropathy secondary to ureteric calculus and subsequent pyelonephritisresolved; levofloxacin to complete course at discharge (2) Hydronephrosis with urinary obstruction due to ureteral calculus: - Underwent stentingdefinitive treatment later;she wants to do locally see her urologist as soon as possible (3) Bacteremia due to Klebsiella pneumoniae: Due to ureteric calculus resulting in obstructive uropathy and secondary pyelonephritisas above, see #1; surveillance cultures negative to date (4) Pyelonephritis: Due to ureteric calculus resulting in urinary tract obstructionas above, see #1; see above (5) Nephrolithiasis: - In addition to develop obstructing stone, there are numerous bilateral, nonobstructing renal calculi seen. - Patient reports she has routine follow-up for her kidney stones with provider in [place]. Should get metabolic management if not already on the sameshe did not seem to know type of stone (6) Hypertension: - Hold at discharge while still recovering; follow-up as outpatient (7) Hyperlipidemia: - Continue Colestid 1 mg BID (8) GERD (gastroesophageal reflux disease): - Continue Protonix 40 mg daily (9) Depression: - Continue Cymbalta 20 mg twice daily, okay to hold tomorrow for procedure. (10) Migraine: - Continue Topamax 25 mg daily, okay to hold tomorrow for procedure. (11) Allergies: - Continue Raisa 180 mg daily, okay to hold tomorrow for procedure. (12) Seizure disorder: - Medication list states patient is taking zonisamide PO HS for seizure, however patient states she has been off this for some time, not actually diagnosed with seizure disorder. Plan Follow mild anemialikely inflammatory Should also get BMP, magnesium, phosphorus along with CBC with differential in about a week with PCP Total Time Total Time Spent Total Time Spent (In Minutes): 32 Discharge Plan Discharge Items Patient Disposition: Home - Self-Care Reason For Visit: OBSTRUCTING URTERAL STONE WITH UTI Discharge Diagnosis: Sepsis secondary to pyelonephritis secondary to obstructive uropathy secondary to ureteric calculus Activity: Resume your previous activity Non-emergency contact: Primary Care Provider and Urologist Call non-emergency contact if: your symptoms worsen and you have a fever Follow-up/Referrals: PCP,NO [Primary Care Provider] - Diet: Regular Addtl Attending Provider Instructions: Recommended that see your urologist as soon as possible and get stone treatment after returning home. Drink plenty of fluids See a clinical registered nurse for medical management of stone prevention -since desired locally obtain referral via your PCP Monitor your blood pressure and and as rises to your usual as you improve from the infection you may need to resume your blood pressure medication but talk to your doctor before doing so Consume a regular diet or a few days, as your improve from infection resume your prior diet. Drink plenty of fluids See your primary provider (PCP) within a week Start taking your antibiotic from 06-03-2022-do not miss a dose. Obtain follow-up basic metabolic panel, complete blood count, magnesium, phosphorus with your primary care doctor within a week Pending Studies at Discharge: Yes Studies:: Final repeat blood cultures Stand-Alone Forms: My [facility], Smoking Cessation Medications and DC Order Prescriptions: New tamsulosin 0.4 mg Capsule 0.4 mg PO HS Qty: 30 0RF levofloxacin 750 mg tablet 750 mg PO DAILY 11 Days Qty: 11 0RF Rx Instructions: start from 06/03/2022 Continued topiramate 25 mg tablet 25 mg PO DAILY fexofenadine 180 mg tablet 180 mg PO DAILY zonisamide 100 mg capsule 100 mg PO HS pantoprazole 40 mg tablet,delayed release (DR/EC) 40 mg PO DAILY colestipol 1 gram tablet 1 g PO BID duloxetine 20 mg capsule,delayed release(DR/EC) 20 mg PO BID albuterol sulfate [Ventolin HFA] 90 mcg/actuation HFA aerosol inhaler 2 puff INHALATION QID PRN (Reason: Bronchospasm) Discontinued losartan 25 mg tablet 25 mg PO DAILY Discharge Orders: Discharge Order (Routine); Ordered 06/02/22 Ordered By: Marisa Jackson Admission Data Admit Date/Time: 05/29/22 17:30 Attending Provider: Marisa Jackson Admit Provider: Marisa Jackson Primary Care Provider: PCP,NO Other Providers: Lexa Nick Coding Level of Care Code D/C DAY MANAGEMENT >30 MINS Diagnoses Sepsis A41.9 Hydronephrosis with urinary obstruction due to ureteral calculus N13.2 Bacteremia due to Klebsiella pneumoniae R78.81; B96.1 Pyelonephritis N12 Nephrolithiasis N20.0 Hypertension I10 Hyperlipidemia E78.5 GERD (gastroesophageal reflux disease) K21.9 Depression F32.A Migraine G43.909 Allergies T78.40XA Seizure disorder G40.909
== END 2022-06-02 10:44 | disposition home or self-care (01) | DRG 854 ==
LOC: ED 12:36 → OR 20:04 → 3N 20:05 → OR 21:03

== ENCOUNTER 2023-08-12 05:16 | Observation (INO) ==
--- NOTE | 2023-08-12 05:26 | Emergency Department Note ---
Impression & Plan Left flank pain, Hydroureteronephrosis, ED Provider Note CHIEF COMPLAINT: Kidney stone HISTORY OF PRESENTING ILLNESS: This 38-year-old female patient who is 32 weeks presents to the emergency department for evaluation of possible kidney stones. The patient initially presented to L&D via ambulance for concerns that she was going into labor. However, after evaluation and observation through L&D, it was found that the patient was not in labor. They suspected a possible kidney stone on the left side since she has a history of kidney stones and is currently seeing urology for her kidney stones. The patient was given IV fluids, IV Morphine, and Flomax for the pain in L&D without improvement. She states that she started with left sided flank pain at 8 pm tonight that was initially mild, but has gotten progressively worse. She denies any urinary symptoms. Denies any blood in her urine. Denies any changes in her BMs. The baby has been moving well and she denies any vaginal bleeding. She follows with Dr. Nick of urology. Per evaluation of the [facility] note from today, the heart tracing is reassuring and there is no contractile activity occurring. The patient had prolonged monitoring without any changes and no development of uterine contractions. [facility] suspected her flank pain is due to hydronephrosis from ureteral stone or possible pyelonephritis. The patient has been afebrile. Laboratory studies obtained on L&D showed a white blood cell count of 26.70, hemoglobin 11.6, and platelet count of 217. Urinalysis with 2+ leukocytes, 10- 30 white blood cells, and 10-20 epithelial cells. REVIEW OF SYSTEMS: See HPI for pertinent positives and pertinent negatives. ALLERGIES: Shrimp, adhesive, latex, metal, aspirin MEDICATIONS: See below PAST MEDICAL HISTORY: See below PHYSICAL EXAM: VITALS: Vitals are noted on the nurse's note and reviewed by myself. GENERAL: Non toxic, no acute distress, non-diaphoretic. SKIN: Capillary refill <2 sec. EYES: PERRLA. EOMI. Conjunctivae without injection, sclerae without icterus. NOSE: Patent without discharge. MOUTH: Mucous membranes moist. Uvula midline. Airway patent. NECK: Supple without nuchal rigidity. HEART: Regular rate and rhythm without murmurs gallops or rubs. LUNGS: Clear to auscultation bilaterally without wheezes, rales or rhonchi. No retractions or accessory muscle use. ABDOMEN: Positive bowel sounds x 4. Gravid, soft, tender to palpation in the left flank only. Baldwin sign negative. No guarding or rebound tenderness. No focal RLQ or LLQ tenderness. DIFFERENTIAL DIAGNOSIS: Differential diagnosis includes active labor, UTI, kidney stone, pyelonephritis, dehydration, CYNTHIA, abdominal abscess, complication, hepatitis, cholelithiasis, cholecystitis, or others. ED COURSE AND MEDICAL DECISION MAKING: MEDICATIONS GIVEN: The patient received IV fluids, IV morphine, and oral Flomax in L&D. She was also given an additional 500 mL of normal saline solution bolus, Tylenol 1000 mg IV, morphine 2 mg IV, and Zofran 4 mg IV in the ER. INTERPRETATION OF LABS: I interpreted the labs with full lab results as below in the lab section of this note. CBC and urinalysis findings as above. CMP with a chloride of 110, glucose 117, calcium 8.1, alk phos 108, total protein 5.5, and albumin 3.0. CMP otherwise unremarkable. Lipase was normal. INTERPRETATION OF IMAGING: Imaging studies were interpreted by myself and read by radiology as per the imaging section of this note. Renal ultrasound showed moderate hydroureteronephrosis and a left ureteral jet was not seen. This is indeterminant and could be related to mass effect from the gravid uterus, but an obstructing ureteral stone is not excluded. There is mild fullness of the right renal collecting system without right-sided hydronephrosis. Nonobstructing calculi are present in both kidneys. EXTERNAL RECORDS REVIEWED: I reviewed the visit note as well as laboratory studies from [facility] as summarized above. CONSULTATIONS: Thania DAVIS of Urology, Dr. Gamez of [facility] MDM SUMMARY: I examined the patient. I reviewed the work-up and notes from [facility] where she was seen prior to being seen in the emergency department. The patient is not in active labor and the heart tracing is reassuring per [facility]. There was concern for a possible kidney stone due to the sudden onset of left flank pain with history of kidney stones. The patient's CBC showed a white blood cell count of 26.70 that may be secondary to the and pain, but also may be secondary to infection. The patient has been afebrile. The patient's urinalysis was questionable for infection versus contamination. Urine culture is pending. Renal functions were normal. Renal ultrasound showed hydroureteronephrosis which could be caused by the mass effect from the gravid uterus, but an obstructing ureteral stone is not excluded. I spoke with urology about the patient and they reviewed the patient's work-up. They cannot rule in or out a stone at this time. They recommended hydration, pain control, and starting antibiotics prophylactically to cover for possible infection pending culture results. The patient did not feel that she could tolerate the pain at home and requested admission for pain control. I spoke with [facility] who agreed to admit the patient for further management. Please refer to their dictation for further details. The patient's care was transferred in stable condition. DIAGNOSIS: Left flank pain Hydroureteronephrosis - questionable kidney stone versus mass effect from gravid uterus 32 weeks Past Med/Surg History Medical History Asthma Depression Fibromyalgia Generalized anxiety disorder GERD (gastroesophageal reflux disease) Hyperlipidemia Hypertension Migraine Seizure disorder Remote hx of "stress seizures", previously on Zonisamide- discontinued, no recent issues Surgical History History of esophagogastroduodenoscopy (EGD) Hx of colonoscopy Hx of cystoscopy 08/23/22 [facility] Cystoscopy, stent (05/29/22): MAC at [facility] Hx of lithotripsy Hx of sinus surgery x2 Hx of tooth extraction Hx of wisdom tooth extraction Previous section x5 Family History Father Kidney stones Hypertension Mother Hypertension Sister Hypertension Uncle Colorectal cancer Myocardial infarction Grandfather (Paternal) Prostate cancer Myocardial infarction Other No family history of adverse response to anesthesia Denies family history of Ovarian cancer Breast cancer Social History Smoking Status: Current every day smoker Tobacco Type: Cigarettes Age Started Using Tobacco: 18; Cigarettes Per Day: Less than 1/2 PPD.; Second Hand Exposure: No; Do You Dip or Chew Tobacco: No; Tobacco Cessation Education Requested by Patient: No Hx Alcohol Use: No Hx Substance Use: No Preferred Language: Estonian Communication Ability: Effective Visual Impairment: No Limitations Hearing Ability: Normal Correctional Nurse Required: No Beliefs That Will Affect Care: None marital status: Single marital status details: Oumar (32) [phone] Current Living Situation: Other Current Living Situation Comment: Lives with boyfriend, Oumar, and his Aunt and Uncle. 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 How many Children do You have: 6 Other Information That Helps Us Care for You: No Feels Safe at Home: Yes Safety Concerns: Feels Safe At This Time Childhood Exposure to Second-Hand Smoke: Yes Diet: regular Dental Care, Regularly: No Physical Activity Frequency: Daily Seatbelt Use: always Sunscreen Use: Yes Assistive Devices: Glasses Allergies Allergies Allergy/AdvReac Type Severity Reaction Status Date / Time shrimp Allergy Severe Difficulty Verified 08/09/23 10:44 Breathing adhesive Allergy Intermediate Rash Verified 08/09/23 10:44 latex Allergy Intermediate Rash Verified 08/09/23 10:44 contact metal agent Allergy KACY=Ronnie Verified 08/09/23 10:44 h aspirin AdvReac Mild Nausea Verified 08/09/23 10:44 Home Meds Home Medications Medication Instructions Recorded Confirmed fexofenadine 180 mg tablet 180 mg PO QAM PRN Allergy Symptoms 01/02/23 08/12/23 ([facility]) prenat.vits,ivon,fke-ajbx-uaoko 1 tab PO DAILY 03/19/23 08/12/23 Previous Rx's Medication Instructions Recorded albuterol sulfate 90 mcg/actuation 2 puff inhalation QID PRN 01/02/23 aerosol inhaler (Ventolin HFA) Bronchospasm #8.5 grams fluticasone propionate 50 1 spray intranasal BID #16 grams 03/20/23 mcg/actuation nasal spray,suspension blood sugar diagnostic (OneTouch #150 ea 04/15/23 Verio test strips) blood-glucose meter (OneTouch #1 ea 04/15/23 Verio Reflect Meter) lancets 33 gauge #150 ea 04/15/23 Results & Data (ED) Vital Signs Vital Signs - 24 hr 08/12/23 05:22 08/12/23 07:47 08/12/23 09:26 Temperature 36.9 C Temperature Source Oral Pulse Rate 115 H Pulse Rate [Right Finger] 119 H 113 H Pulse Rhythm Regular Pulse Strength Normal Respiratory Rate 19 20 20 Respiratory Effort / Characteristics Non-Labored Spontaneous Non-Labored Non-Labored Respiratory Depth Normal Normal Normal Blood Pressure 105/53 L Blood Pressure [Right Arm] 100/60 Blood Pressure Mean 70 Blood Pressure Mean [Right Arm] 73 Blood Pressure Position Sitting Pulse Oximetry 94 94 94 Oxygen Delivery Method Room Air Room Air Room Air Sepsis Recent Fever Within 48 Hours No Sepsis New/Unexplained Change in Mental Status N/A Sepsis Action Taken by Nursing No Action Required 08/12/23 09:31 Temperature Temperature Source Pulse Rate Pulse Rate [Right Finger] Pulse Rhythm Pulse Strength Respiratory Rate Respiratory Effort / Characteristics Respiratory Depth Blood Pressure Blood Pressure [Right Arm] Blood Pressure Mean Blood Pressure Mean [Right Arm] Blood Pressure Position Pulse Oximetry Oxygen Delivery Method Room Air Sepsis Recent Fever Within 48 Hours Sepsis New/Unexplained Change in Mental Status Sepsis Action Taken by Nursing Laboratory Data 08/12/23 05:41 Lab Results 08/12/23 08/12/23 Range/Units 05:41 09:29 Sodium 136 (136-145) mmol/L Potassium 4.1 (3.5-5.1) mmol/L Chloride 110 H (98-107) mmol/L Carbon Dioxide 21 (21-32) mmol/L Anion Gap 5 (3-11) BUN 13 (6-23) mg/dl Creatinine 0.76 (0.6-1.2) mg/dl Est Cr Clr Drug Dosing 100.9 ml/min Est GFR ( Amer) 117.0 ml/min Est GFR (Non-Af Amer) 100.9 ml/min BUN/Creatinine Ratio 17.1 (10-20) Glucose 117 H (70-99(Fasting)) mg/dl POC Glucose 112 H (70-99) mg/dl Calcium 8.1 L (8.6-10.3) mg/dl Total Bilirubin 0.2 (0.2-1.0) mg/dl AST 10 L (13-39) U/L ALT 7 (7-52) U/L Alkaline Phosphatase 108 H (34-104) U/L Total Protein 5.5 L (6.0-8.3) gm/dl Albumin 3.0 L (3.4-5.0) gm/dl Globulin 2.5 (2.5-4.0) gm/dl Albumin/Globulin Ratio 1.2 (0.9-2) Lipase 24 (11-82) U/L Administered Medications Fluticasone Propionate (Fluticasone Propionate Na Spr 16 Gm Btl) 1 sprays NA BID [facility] Stop: 09/11/23 09:47 Last Admin: 08/12/23 21:06 Dose: 1 sprays Documented By: Admin: 08/12/23 10:35 Dose: Not Given Documented By: NEELA Lactated Ringer's (Lr) 1,000 mls @ 250 mls/hr IV .Q4H [facility] Stop: 09/11/23 09:47 Last Admin: 08/12/23 21:45 Dose: 250 mls/hr Documented By: Infusion: 08/12/23 21:13 Dose: 250 mls/hr Documented By: Admin: 08/12/23 17:13 Dose: 250 mls/hr Documented By: Infusion: 08/12/23 14:35 Dose: 250 mls/hr Documented By: Admin: 08/12/23 10:35 Dose: 250 mls/hr Documented By: NEELA Miscellaneous (Remove Nicoderm Patch) 1 each N/A DAILY@0859 [facility] Stop: 09/11/23 08:58 Last Admin: 08/12/23 10:54 Dose: Not Given Documented By: NEELA Morphine Sulfate (Morphine Sulfate 2 Mg/Ml Carp) 2 mg IV Q4 PRN PRN Reason: Pain Stop: 08/26/23 09:47 Last Admin: 08/12/23 21:05 Dose: 2 mg Documented By: Admin: 08/12/23 13:30 Dose: 2 mg Documented By: NEELA Nicotine (Nicotine 21 Mg/24 Hr Tdsy) 21 mg TD QAM [facility] Stop: 09/11/23 08:59 Last Admin: 08/12/23 10:34 Dose: 21 mg Documented By: NEELA Oxycodone/Acetaminophen (Oxycodone/Acetaminophen 5mg/325mg Tab) 1 tab PO Q4H PRN PRN Reason: Pain Stop: 08/26/23 09:47 Last Admin: 08/12/23 17:52 Dose: 1 tab Documented By: Admin: 08/12/23 10:47 Dose: 1 tab Documented By: NEELA Prenat Multivit/Census Taker/Iron/Folic Ac ( Vitamin 1 Tab) 1 tab PO DAILY [facility] Stop: 09/11/23 09:47 Last Admin: 08/12/23 10:35 Dose: Not Given Documented By: NEELA Discontinued Medications Sodium Chloride (Nss) 500 mls @ 999 mls/hr IV .Q31M ONE Stop: 08/12/23 06:11 Last Infusion: 08/12/23 06:22 Dose: 0 mls/hr Documented By: Admin: 08/12/23 05:51 Dose: 999 mls/hr Documented By: DELLA Acetaminophen (Ofirmev) 1,000 mg in 100 mls @ 400 mls/hr IV NOW STA Stop: 08/12/23 05:55 Last Infusion: 08/12/23 06:06 Dose: 0 mls/hr Documented By: Admin: 08/12/23 05:51 Dose: 400 mls/hr Documented By: DELLA Ceftriaxone Sodium (Rocephin) 2,000 mg in 50 mls @ 100 mls/hr IV NOW STA Stop: 08/12/23 08:27 Last Infusion: 08/12/23 09:12 Dose: 0 mls/hr Documented By: Admin: 08/12/23 08:36 Dose: 100 mls/hr Documented By: KARINA Morphine Sulfate (Morphine Sulfate 2 Mg/Ml Carp) 2 mg IV NOW STA Stop: 08/12/23 07:52 Last Admin: 08/12/23 08:00 Dose: 2 mg Documented By: KARINA Ondansetron HCl (Ondansetron Inj 2 Mg/Ml 2 Ml Vial) 4 mg IV NOW STA Stop: 08/12/23 07:52 Last Admin: 08/12/23 08:00 Dose: 4 mg Documented By: KARINA Imaging Data Radiologist's Impression: Renal Ultrasound 08/12/23 05:37 ULTRASOUND KIDNEYS AND BLADDER CLINICAL HISTORY: Left flank pain. . COMPARISON STUDY: Abdominal CT dated 11/26/2022. TECHNIQUE: Real-time, grayscale, and color flow sonography of the kidneys and bladder is performed. Images are reviewed in the transverse and longitudinal p lanes. FINDINGS: Kidneys: The kidneys are normal in size and echotexture. The right kidney measures 11.4 cm in length and the left kidney measures 10.6 cm in length. There is moderate left hydroureteronephrosis. There is mild fullness of the renal collecting system on the right. Small bilateral renal calculi measuring up to 5 mm. A 1.1 cm cyst is seen on the right. There is no sonographic evidence of contour deforming renal mass lesion. No perinephric fluid is identified. Bladder: The bladder is normal in appearance. Only the right ureteral jet was seen. An intrauterine gestation is seen in the pelvis. IMPRESSION: 1. There is moderate left hydroureteronephrosis and a left ureteral jet was not seen. This is indeterminant, and could be related to mass effect from the gravid uterus. An obstructing ureteral stone is not excluded. 2. There is mild fullness of the right renal collecting system without right- sided hydronephrosis. 3. Nonobstructing calculi are present in both kidneys. ACT 112: Negative or not required by law. Electronically signed by: Jamel Lloyd M.D. 08/12/2023 7:13 AM Discharge Plan Visit Data Chief Complaint: Flank Pain ED Provider: Alena Peter ED Midlevel Provider: Padmaja Gaines Discharge Problem: Left flank pain, Hydroureteronephrosis, Patient Disposition: Admitted As Inpatient Condition: Good Discharge Instructions Interventions: ED Discharge Assessment Last Done: 08/12/23 09:31 Qualifiers: Weeks of gestation: 32 weeks Qualified Code(s): Z3A.32 - 32 weeks gestation of
[2023-08-12] MEDS ORDERED: ACETAMINOPHEN 1,000 MG/100 ML VIAL IV STA (05:41)
[2023-08-12] MEDS ORDERED: SODIUM CHLORIDE 0.9% 500 ML IV ONE (05:41)
[2023-08-12 06:18] LABS: Albumin Globulin Ratio 1.2 (0.9-2); BUN Creatinine Ratio 17.1 (10-20); Bilirubin,Total 0.2 mg/dl (0.2-1.0); Calcium 8.1 mg/dl (8.6-10.3); Creatinine Clr Calc Pharmacy 100.9 ml/min; Est GFR (Non-African American) 100.9 ml/min; Globulin 2.5 gm/dl (2.5-4.0); Potassium 4.1 mmol/L (3.5-5.1); Total Protein 5.5 gm/dl (6.0-8.3)
--- NOTE | 2023-08-12 07:15 | Ultrasound Report ---
ULTRASOUND KIDNEYS AND BLADDER CLINICAL HISTORY: Left flank pain. . COMPARISON STUDY: Abdominal CT dated 11/26/2022. TECHNIQUE: Real-time, grayscale, and color flow sonography of the kidneys and bladder is performed. I mages are reviewed in the transverse and longitudinal planes. FINDINGS: Kidneys: The kidneys are normal in size and echotexture. The right kidney measures 11.4 cm in length and the left kidney measures 10.6 cm in length. There is moderate left hydroureteronephrosis. There i s mild fullness of the renal collecting system on the right. Small bilateral renal calculi measuring up to 5 mm. A 1.1 cm cyst is seen on the right. There is no sonographic evidence of contour deforming renal mass lesion. No perinephric fluid is identified. Bladder: The bladder is normal in appearance. Only the right ureteral jet was seen. An intrauterine g estation is seen in the pelvis. IMPRESSION: 1. There is moderate left hydroureteronephrosis and a left ureteral jet was not seen. This is indeter minant, and could be related to mass effect from the gravid uterus. An obstructing ureteral stone is not excluded. 2. There is mild fullness of the right renal collecting system without right-sided hydronephrosis. 3. Nonobstructing calculi are present in both kidneys. ACT 112: Negative or not required by law. Electronically signed by: Jamel Lloyd M.D. 08/12/2023 7:13 AM
[2023-08-12] MEDS ORDERED: ONDANSETRON INJ 2 MG/ML 2 ML VIAL IV STA (07:51)
[2023-08-12] MEDS ORDERED: MoRPHine SULFATE 2 MG/ML CARP IV STA (07:51)
[2023-08-12] MEDS ORDERED: cefTRIAXone SODIUM 2,000 MG/50 ML BAG IV STA (07:58)
[2023-08-12] MEDS ORDERED: ALBUTEROL HFA 8 GM INHALER INH PRN (09:48)
[2023-08-12] MEDS ORDERED: ONDANSETRON INJ 2 MG/ML 2 ML VIAL IV PRN (09:48)
[2023-08-12] MEDS ORDERED: FEXOFENADINE HCL 180 MG TAB PO PRN (09:48)
[2023-08-12] MEDS ORDERED: ACETAMINOPHEN 325 MG TAB PO PRN (09:48)
[2023-08-12] MEDS: NICOTINE 21 MG/24 HR TDSY TD SCH (10:34)
[2023-08-12] MEDS: PRENATAL VITAMIN 1 TAB PO SCH (10:35)
[2023-08-12] MEDS: LACTATED RINGER'S 1,000 ML IV SCH ×3 (10:35→21:45)
[2023-08-12] MEDS: FLUTICASONE PROPIONATE NA SPR 16 GM BTL SCH ×2 (10:35→21:06)
--- NOTE | 2023-08-12 10:46 | Urology Consultation ---
Date of Consultation August 12, 2023 Assessment & Plan (1) : (2) Left flank pain: (3) Hydroureteronephrosis: (4) Nephrolithiasis: Plan 38yo/F with a history of nephrolithiasis who is 32 weeks who initially presented to L&D via ambulance for concerns that she was going into labor. However, after evaluation and observation through L&D, it was found that the patient was not in labor. She is admitted to [facility] service due to concerns of possible stone given acute left flank pain and hydronephrosis. - Afebrile, normotensive, tachycardic. - Labs reviewed - creatinine 0.76 today. - Urinalysis without obvious signs of infection, culture pending. - Voiding spontaneously, continue to monitor. Reports increased left flank pain with voiding. Patient was requesting Gan catheter - Ok from standpoint. - Renal ultrasound reviewed - Moderate left hydronephrosis could be related to mass effect from the gravid uterus, an obstructing ureteral stone is not excluded. There is mild fullness of the right renal collecting system without right-sided hydronephrosis. - No plan for urological intervention at this time. - We discussed that the hydronephrosis may be physiological secondary to the versus an obstructive ureteral stone. The ultrasound assesses both the kidney and the bladder but does not assess the ureter in between and therefore we cannot confirm the presence or absence of a ureteral stone. Either way, given her status, we would delay any treatment until after delivery given the risks to baby and of inducing early labor unless she were to develop fevers or other acute changes. - Can continue to monitor with ultrasound for worsening obstruction. Other imaging such as CT would not change clinical plan. - Intervention only warranted if patient becomes septic and/or develops renal failure. - Recommend conservative management, hydration, pain control. - Continue antibiotics and follow culture. - Urology will follow. Plan of care reviewed with Dr. Nick, on-call urologist. History of Present Illness Attending Physician: Colette Gamez MD, FACOG History of Present Illness 38-year-old female patient who is 32 weeks presented to the emergency department for evaluation of left flank pain. The patient initially presented to L&D via ambulance for concerns that she was going into labor. However, after evaluation and observation through L&D, it was found that the patient was not in labor. They suspected a possible kidney stone on the left side since she has a history of kidney stones. The patient was given IV fluids, IV Morphine, and Flomax for the pain in L&D without improvement. In the ED, she was afebrile and hemodynamically stable. Labs reviewed a white count of 26.70 and normal renal function. Urinalysis with negative blood, negative nitrite, negative bacteria, 2+ LE, 10-20 epithelial cells. Urine culture pending. Renal ultrasound obtained and notable for moderate left hydronephrosis which could be related to mass effect from the gravid uterus however an obstructing ureteral stone is not excluded and mild fullness of the right renal collecting system without right-sided hydronephrosis. There are nonobstructing stones present in both kidneys. Patient admitted to eye[facility] row marker for pain management, IV fluids, IV antibiotics until infection is ruled out, and antiemetics. Renal ultrasound- 1. There is moderate left hydroureteronephrosis and a left ureteral jet was not seen. This is indeterminant, and could be related to mass effect from the gravid uterus. An obstructing ureteral stone is not excluded. 2. There is mild fullness of the right renal collecting system without right- sided hydronephrosis. 3. Nonobstructing calculi are present in both kidneys. Patient examined at bedside this AM. Awake, resting bed on arrival. No acute distress. Denies fevers, chills, nausea, vomiting at present. Reports pain has improved since arrival. She does endorse increased left flank pain with voiding. Denies hematuria or dysuria. Tolerating diet. Patient is known to the urology service, follows with Dr. Nick. Allergies Allergy/AdvReac Type Severity Reaction Status Date / Time shrimp Allergy Severe Difficulty Verified 08/09/23 10:44 Breathing adhesive Allergy Intermediate Rash Verified 08/09/23 10:44 latex Allergy Intermediate Rash Verified 08/09/23 10:44 contact metal agent Allergy KACY=Ronnie Verified 08/09/23 10:44 h aspirin AdvReac Mild Nausea Verified 08/09/23 10:44 Home Medications Medication Instructions Recorded Confirmed Type albuterol sulfate 90 mcg/actuation 2 puff inhalation QID PRN 01/02/23 08/12/23 Rx aerosol inhaler (Ventolin HFA) Bronchospasm #8.5 grams fexofenadine 180 mg tablet 180 mg PO QAM PRN Allergy Symptoms 03/22/23 10/30/23 History (Raisa Allergy) prenat.vits,ivon,uiz-foit-eloia 1 tab PO DAILY 03/19/23 08/12/23 History fluticasone propionate 50 1 spray intranasal BID #16 grams 03/20/23 08/12/23 Rx mcg/actuation nasal spray,suspension blood sugar diagnostic (OneTouch #150 ea 04/15/23 08/09/23 Rx Verio test strips) blood-glucose meter (OneTouch #1 ea 04/15/23 08/09/23 Rx Verio Reflect Meter) lancets 33 gauge #150 ea 04/15/23 08/09/23 Rx Patient History Medical History Asthma Depression Fibromyalgia Generalized anxiety disorder GERD (gastroesophageal reflux disease) Hyperlipidemia Hypertension Migraine Seizure disorder Remote hx of "stress seizures", previously on Zonisamide- discontinued, no recent issues Surgical History History of esophagogastroduodenoscopy (EGD) Hx of colonoscopy Hx of cystoscopy 08/23/22 [facility] Cystoscopy, stent (05/29/22): MAC at [facility] Hx of lithotripsy Hx of sinus surgery x2 Hx of tooth extraction Hx of wisdom tooth extraction Previous section x5 Family History Father Kidney stones Hypertension Mother Hypertension Sister Hypertension Uncle Colorectal cancer Myocardial infarction Grandfather (Paternal) Prostate cancer Myocardial infarction Other No family history of adverse response to anesthesia Denies family history of Ovarian cancer Breast cancer Social History Smoking Status: Current every day smoker Tobacco Type: Cigarettes Age Started Using Tobacco: 18; Cigarettes Per Day: Less than 1/2 PPD.; Second Hand Exposure: No; Do You Dip or Chew Tobacco: No; Tobacco Cessation Education Requested by Patient: No Hx Alcohol Use: No Hx Substance Use: No Preferred Language: Polish Communication Ability: Effective Visual Impairment: No Limitations Hearing Ability: Normal Infrastructure Project Manager Required: No Beliefs That Will Affect Care: None marital status: Single marital status details: Oumar (32) [phone] Current Living Situation: Other Current Living Situation Comment: Lives with boyfriend, Oumar, and his Aunt and Uncle. 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 How many Children do You have: 6 Other Information That Helps Us Care for You: No Feels Safe at Home: Yes Safety Concerns: Feels Safe At This Time Childhood Exposure to Second-Hand Smoke: Yes Diet: regular Dental Care, Regularly: No Physical Activity Frequency: Daily Seatbelt Use: always Sunscreen Use: Yes Assistive Devices: Glasses Review of Systems Review of Systems: All systems reviewed & are unremarkable except as noted in HPI & below Physical Exam Constitutional: well developed and well nourished; no acute distress Neck: normal visual inspection Respiratory: no respiratory distress and no labored breathing Gastrointestinal (Abdomen): Gravid abdomen Musculoskeletal: Head/Neck/Chest: normocephalic Skin: No visible rashes or lesions to exposed skin areas Neurologic: moves all extremities and awake Psychiatric: A+Ox3, euthymic affect Results & Data Vital Signs (Past 12 Hours) Vital Signs Temp Pulse Pulse Resp BP BP BP 08/12/23 09:57 08/12/23 09:57 36.5 C 116 H 20 114/73 08/12/23 09:31 08/12/23 09:26 113 H 20 08/12/23 07:47 119 H 20 100/60 08/12/23 05:22 36.9 C 115 H 19 105/53 L Pulse Ox O2 Del Method 08/12/23 09:57 Room Air 08/12/23 09:57 94 Room Air 08/12/23 09:31 Room Air 08/12/23 09:26 94 Room Air 08/12/23 07:47 94 Room Air 08/12/23 05:22 94 Room Air PG Care Time/CCT Total # of Minutes Spent Total Time Spent with Patient: Total time spent is greater than 50% in coordination of care (as documented) at patient's floor/unit and/or counseling patient: Coding Level of Care Code 53463 IN/OBS CONSULT LVL 3,45M Diagnoses Z3A.32 Weeks of gestation: 32 weeks Left flank pain R10.9 Hydroureteronephrosis N13.30 Nephrolithiasis N20.0 (1) Weeks of gestation: 32 weeks Qualified Code(s): Z3A.32 - 32 weeks gestation of
[2023-08-12] MEDS: oxyCODONE/ACETAMINOPHEN 5mg/325mg TAB PO PRN ×3 (10:47→23:15)
--- NOTE | 2023-08-12 12:05 | History & Physical Report ---
Date of Service August 12, 2023 Assessment & Plan (1) Left flank pain: (2) Hydroureteronephrosis: (3) Nephrolithiasis: (4) Previous delivery affecting , antepartum: (5) : Plan Patient has a hx of flank pain and known hx of stones. She presents with chinyere n/flank pain and was ruled out for labor earlier today. Patient being admitted for pain management, iv antibiotics until infection ruled out, antiemetics, ivf hydration. Will monitor her GDM (which has been poorly monitored in her because of lack of care, but did have a recent growth us with aga. ). Appreciate urology consult and patient will have to f/u with them after discharge. STrain urine. nst q shift or as needed. Initially ordered full admission instead of a 23 hr obs. Tried to change but apparently cannot after that is put in the computer. Admission and Anticipated Discharge Date Admission Date: August 12, 2023 History of Present Illness Chief Complaint: right flank pain Primary Care Provider: Reji Najera, DO HPI from Dr. Palomino earlier in the day today--Patient is a 38-year-old 6 para 5-0-0-6 female EDC of 10/05/2023 who presents at 32-2/7 weeks with worsening left flank pain radiating to her left groin. Her pain started several hours ago and was mild but progressed to the point where she is unable to walk or sit comfortably. Patient has a long history of bilateral ureteral stones. Most recently she was treated by Dr. Nick for an obstructing right ureteral stone. She had also been treated for a left obstructing ureteral stone and sepsis in September 2022. Feels like she may be having some chills or fever but has not taken her temperature. She denies any contraction pain however she has decreased movement. She denies hematuria or dysuria. She also denies any vaginal bleeding change in vaginal discharge. has also been complicated by diagnosis of gestational diabetes which has been difficult to manage as patient has had infrequent visits in contact with endocrinology as she travels frequently for her job. is also complicated by a prior history of 5 sections. She was scheduled to see maternal- medicine at [facility] later this morning for discussion of transfer care and delivery at their facility because of her extensive section and history and concerns for delivery here at [place] or blood products are not as available as it would be at a tertiary care center like [place]. Patient was evaluated in labor and delivery and baby was reactive with no contraction activity. She was then sent to the ED for evaluation of suspected stones. Notes from the ED--HISTORY OF PRESENTING ILLNESS: This 38-year-old female patient who is 32 weeks presents to the emergency department for evaluation of possible kidney stones. The patient initially presented to L&D via ambulance for concerns that she was going into labor. However, after evaluation and observation through L&D, it was found that the patient was not in labor. They suspected a possible kidney stone on the left side since she has a history of kidney stones and is currently seeing urology for her kidney stones. The patient was given IV fluids, IV Morphine, and Flomax for the pain in L&D without improvement. She states that she started with left sided flank pain at 8 pm tonight that was initially mild, but has gotten progressively worse. She denies any urinary symptoms. Denies any blood in her urine. Denies any changes in her BMs. The baby has been moving well and she denies any vaginal bleeding. She follows with Dr. Nick of urology. Per evaluation of the REAL ESTATE PORTFOLIO MANAGER note from today, the heart tracing is reassuring and there is no contractile activity occurring. The patient had prolonged monitoring without any changes and no development of uterine contractions. REAL ESTATE PORTFOLIO MANAGER suspected her flank pain is due to hydronephrosis from ureteral stone or possible pyelonephritis. The patient has been afebrile. Laboratory studies obtained on L&D showed a white blood cell count of 26.70, hemoglobin 11.6, and platelet count of 217. Urinalysis with 2+ leukocytes, 10- 30 white blood cells, and 10-20 epithelial cells. MDM SUMMARY: I examined the patient. I reviewed the work-up and notes from [facility]STATE PORTFOLIO MANAGER where she was seen prior to being seen in the emergency department. The patient is not in active labor and the heart tracing is reassuring per REAL ESTATE PORTFOLIO MANAGER. There was concern for a possible kidney stone due to the sudden onset of left flank pain with history of kidney stones. The patient's CBC showed a white blood cell count of 26.70 that may be secondary to the and pain, but also may be secondary to infection. The patient has been afebrile. The patient's urinalysis was questionable for infection versus contamination. Urine culture is pending. Renal functions were normal. Renal ultrasound showed hydroureteronephrosis which could be caused by the mass effect from the gravid uterus, but an obstructing ureteral stone is not excluded. I spoke with urology about the patient and they reviewed the patient's work-up. They cannot rule in or out a stone at this time. They recommended hydration, pain control, and starting antibiotics prophylactically to cover for possible infection pending culture results. The patient did not feel that she could tolerate the pain at home and requested admission for pain control. I spoke with REAL ESTATE PORTFOLIO MANAGER who agreed to admit the patient for further management. Please refer to their dictation for further details. The patient's care was transferred in stable condition. The patient is now being admitted on the antepartum service for pain management, fluids, iv antibiotics. Urology was consulted and please see report. When I enter the room, the patient is sitting up and eating. she notes her pain is a little better, was able to get a nap. Allergies Allergy/AdvReac Type Severity Reaction Status Date / Time shrimp Allergy Severe Difficulty Verified 08/09/23 10:44 Breathing adhesive Allergy Intermediate Rash Verified 08/09/23 10:44 latex Allergy Intermediate Rash Verified 08/09/23 10:44 contact metal agent Allergy KACY=Ronnie Verified 08/09/23 10:44 h aspirin AdvReac Mild Nausea Verified 08/09/23 10:44 Home Medications Medication Instructions Recorded Confirmed Type albuterol sulfate 90 mcg/actuation 2 puff inhalation QID PRN 01/02/23 08/12/23 R x aerosol inhaler (Ventolin HFA) Bronchospasm #8.5 grams fexofenadine 180 mg tablet 180 mg PO QAM PRN Allergy Symptoms 01/02/23 08/12/23 History (Raisa Allergy) prenat.vits,ivon,rlw-xoyg-dytez 1 tab PO DAILY 03/19/23 08/12/23 History fluticasone propionate 50 1 spray intranasal BID #16 grams 03/20/23 08/12/23 Rx mcg/actuation nasal spray,suspension blood sugar diagnostic (OneTouch #150 ea 04/15/23 08/09/23 Rx Verio test strips) blood-glucose meter (OneTouch #1 ea 04/15/23 08/09/23 Rx Verio Reflect Meter) lancets 33 gauge #150 ea 04/15/23 08/09/23 Rx Patient History Medical History Asthma Depression Fibromyalgia Generalized anxiety disorder GERD (gastroesophageal reflux disease) Hyperlipidemia Hypertension Migraine Seizure disorder Remote hx of "stress seizures", previously on Zonisamide- discontinued, no recent issues Surgical History History of esophagogastroduodenoscopy (EGD) Hx of colonoscopy Hx of cystoscopy 08/23/22 [facility] Cystoscopy, stent (05/29/22): MAC at [facility] Hx of lithotripsy Hx of sinus surgery x2 Hx of tooth extraction Hx of wisdom tooth extraction Previous section x5 Family History Father Kidney stones Hypertension Mother Hypertension Sister Hypertension Uncle Colorectal cancer Myocardial infarction Grandfather (Paternal) Prostate cancer Myocardial infarction Other No family history of adverse response to anesthesia Denies family history of Ovarian cancer Breast cancer Social History Smoking Status: Current every day smoker Tobacco Type: Cigarettes Age Started Using Tobacco: 18; Cigarettes Per Day: Less than 1/2 PPD.; Second Hand Exposure: No; Do You Dip or Chew Tobacco: No; Tobacco Cessation Education Requested by Patient: No Hx Alcohol Use: No Hx Substance Use: No Preferred Language: Mongolian Communication Ability: Effective Visual Impairment: No Limitations Hearing Ability: Normal Java Sdet Required: No Beliefs That Will Affect Care: None marital status: Single marital status details: Oumar (32) [phone] Current Living Situation: Other Current Living Situation Comment: Lives with boyfriend, Oumar, and his Aunt and Uncle. 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 How many Children do You have: 6 Other Information That Helps Us Care for You: No Feels Safe at Home: Yes Safety Concerns: Feels Safe At This Time Childhood Exposure to Second-Hand Smoke: Yes Diet: regular Dental Care, Regularly: No Physical Activity Frequency: Daily Seatbelt Use: always Sunscreen Use: Yes Assistive Devices: Glasses OB History Past Pregnancies Del. Date GA wks Lbr Lgth wt Sex Type del Anes Place Del Prov ? Comment 07/01/07 40 6lb 5oz F Epidural Other [place] [facility] N failure to progress 05/13/09 39 6lb 15oz F Spinal Other [place] N 06/26/11 38 4lb 10oz F Spinal Other [place] [facility] N Baby A 06/26/11 38 5lb 2oz F Spinal Other [place] N Baby B 04/11/16 38 6lb 5oz M Spinal Other [place] N 06/24/19 38 6lb 15oz F Spinal Other [facility] N Physical Exam Constitutional: WD/WN, vitals as above Psychiatric: A+Ox3, euthymic affect Results & Data Vital Signs (Past 12 Hours) Vital Signs Temp Pulse Pulse Resp BP BP BP 08/12/23 09:57 08/12/23 09:57 36.5 C 116 H 20 114/73 08/12/23 09:31 08/12/23 09:26 113 H 20 08/12/23 07:47 119 H 20 100/60 08/12/23 05:22 36.9 C 115 H 19 105/53 L Pulse Ox O2 Del Method 08/12/23 09:57 Room Air 08/12/23 09:57 94 Room Air 08/12/23 09:31 Room Air 08/12/23 09:26 94 Room Air 08/12/23 07:47 94 Room Air 08/12/23 05:22 94 Room Air Coding Level of Care Code 40442 INT INP/OBS CARE 40MIN Diagnoses Left flank pain R10.9 Hydroureteronephrosis N13.30 Nephrolithiasis N20.0 Previous delivery affecting , antepartum O34.219 Z3A.32 Weeks of gestation: 32 weeks (5) Weeks of gestation: 32 weeks Qualified Code(s): Z3A.32 - 32 weeks gestation of
[2023-08-12] MEDS: MoRPHine SULFATE 2 MG/ML CARP IV PRN ×2 (13:30→21:05)
[2023-08-13] MEDS: LACTATED RINGER'S 1,000 ML IV SCH ×4 (01:23→09:52)
[2023-08-13] MEDS: MoRPHine SULFATE 2 MG/ML CARP IV PRN (01:33)
[2023-08-13] MEDS: oxyCODONE/ACETAMINOPHEN 5mg/325mg TAB PO PRN (06:05)
[2023-08-13 07:50] LABS: Hematocrit (blood only) 30.5 % (37.0-47.0); Hemoglobin 10.4 g/dl (12.0-16.0); Mean Corpuscular Hemoglobin 32.1 pg (25.0-34.0); Mean Corpuscular Hgb Conc 34.1 g/dL (32.0-36.0); Mean Corpuscular Volume 94.1 fL (80.0-100.0); Mean Platelet Volume 11.8 fL (9.4-12.4); Platelet Count 175 K/uL (130-400); RDW Coefficient of Variation 13.3 % (11.5-14.5); RDW Standard Deviation 45.9 fL (36.4-46.3); Red Blood Count 3.24 M/uL (4.20-5.40); White Blood Count 22.46 K/ul (4.8-10.8)
[2023-08-13 07:54] LABS: Albumin Globulin Ratio 1.1 (0.9-2); Albumin Level 2.6 gm/dl (3.4-5.0); BUN Creatinine Ratio 8.2 (10-20); Bilirubin,Total 0.5 mg/dl (0.2-1.0); Calcium 7.6 mg/dl (8.6-10.3); Creatinine Clr Calc Pharmacy 71.4 ml/min; Est GFR (Non-African American) 74.2 ml/min; Globulin 2.3 gm/dl (2.5-4.0); Potassium 3.9 mmol/L (3.5-5.1); Total Protein 4.9 gm/dl (6.0-8.3)
[2023-08-13] MEDS: PRENATAL VITAMIN 1 TAB PO SCH (07:58)
[2023-08-13] MEDS: FLUTICASONE PROPIONATE NA SPR 16 GM BTL SCH (07:59)
[2023-08-13] MEDS ORDERED: cefTRIAXone SODIUM 2,000 MG in DEXTROSE 5 % MINI-B 50 ML IV SCH (08:00)
[2023-08-13 08:17] LABS: Basophils # (auto) 0.07 K/uL (0.00-0.20); Basophils % (auto) 0.3 %; Eosinophils # (auto) 0.03 K/uL (0.00-0.50); Eosinophils % (auto) 0.1 %; Immature Granulocytes % (auto) 0.9 %; Lymphocytes # (auto) 0.82 K/uL (1.20-3.40); Lymphocytes % (auto) 3.7 %; Monocytes # (auto) 0.76 K/uL (0.11-0.59); Monocytes % (auto) 3.4 %; Neutrophils # (auto) 20.58 K/uL (1.40-6.50); Neutrophils % (auto) 91.6 %
[2023-08-13] MEDS ORDERED: CEFEPIME 1,000 MG in SYRINGE 0 ML IV SCH (08:45)
--- NOTE | 2023-08-13 08:57 | Urology Progress Note ---
Date of Service August 13, 2023 Assessment & Plan (1) : (2) Left flank pain: (3) Hydroureteronephrosis: (4) Nephrolithiasis: Plan 38yo/F with a history of nephrolithiasis who is 32 weeks who initially presented to L&D via ambulance for concerns that she was going into labor. However, after evaluation and observation through L&D, it was found that the patient was not in labor. She is admitted to [facility] service due to concerns of possible stone given her acute left flank pain and hydronephrosis. - Febrile at 38.2C this morning. Tachycardic. Normotensive. - Labs reviewed - WBC down from 26-22 today, creatinine 0.98. Continue to trend. - Urinalysis without obvious signs of infection, culture pending. Changed from Ceftriaxone to Cefepime today. - Voiding spontaneously, continue to monitor. - Renal ultrasound reviewed - Moderate left hydronephrosis could be related to mass effect from the gravid uterus, an obstructing ureteral stone is not excluded. There is mild fullness of the right renal collecting system without right-sided hydronephrosis. - We discussed that the hydronephrosis may be physiological secondary to the versus an obstructive ureteral stone. The ultrasound assesses both the kidney and the bladder but does not assess the ureter in between and therefore we cannot confirm the presence or absence of a ureteral stone. Either way, we would ideally delay intervention/stone treatment until after delivery given the risks to baby and of inducing early labor unless showing signs of sepsis. - Since she was febrile this morning and tachycardic with the question of a possible stone, our recommendation would be to consider transfer to a tertiary center in the event she may require intervention. - Discussed with gear lapper. - Urology will follow peripherally. Please call with any questions/concerns. - Plan of care reviewed with Dr. Aguila, on-call urologist. Admission and Anticipated Discharge Date Admission Date: August 12, 2023 Subjective Pt examined at bedside this AM. Awake, sitting up in bed on arrival. No acute distress. Febrile at 38.2C this morning. Tachycardic. Still with left sided pain, but improved since yesterday. Denies nausea/vomiting. Voiding without issue. Denies hematuria and dysuria. Review of Systems Constitutional: as per Subjective / HPI Gastrointestinal: as per Subjective / HPI Genitourinary: as per Subjective / HPI Physical Exam Constitutional: no acute distress Respiratory: no respiratory distress and no labored breathing Gastrointestinal (Abdomen): Gravid abd Skin: No visible rashes or lesions to exposed skin areas Neurologic: awake Psychiatric: A+Ox3, euthymic affect Results & Data Vital Signs (Past 12 Hours) Vital Signs Temp Pulse Resp BP Pulse Ox O2 Del Method 08/13/23 03:30 36.7 C 138 H 20 114/71 94 Room Air 08/13/23 04:03 118 H 18 97 Room Air 08/12/23 23:10 37.1 C 136 H 18 81/63 L 95 Room Air PG Care Time/CCT Total # of Minutes Spent Total Time Spent with Patient: Total time spent is greater than 50% in coordination of care (as documented) at patient's floor/unit and/or counseling patient: Coding Level of Care Code 28631 SUB INP/OBS CARE 2/35MIN Diagnoses Z3A.32 Weeks of gestation: 32 weeks Left flank pain R10.9 Hydroureteronephrosis N13.30 Nephrolithiasis N20.0 (1) Weeks of gestation: 32 weeks Qualified Code(s): Z3A.32 - 32 weeks gestation of
[2023-08-13] MEDS ORDERED: CEFEPIME 2,000 MG in SYRINGE 0 ML IV SCH (09:00)
--- NOTE | 2023-08-13 09:28 | Hospitalist Consultation ---
Date of Consultation August 13, 2023 Assessment & Plan (1) Left flank pain: Currently gynecology and urology are evaluating with her left hydroureter ureter for possibility of either mechanical obstruction from the extrinsic gravid uterus or renal stone. She is hydrated aggressively renal function is stable and she is on antibiotics of cefepime at this point time She previously has had a coag negative staph in her urine that was resistant to penicillins this was approximately 1 year ago, if similar organism cefepime may cover this organism also (2) Tachycardia: Patient tachycardia may likely be physiologic given her pain. Patient states she is a history of tachycardia and has seen a pecan cleaner in the past typically this does not cause her long-term symptoms Agree with current hydration. We will check an EKG to assure she is in a sinus mechanism and check thyroid profile to be sure she is not hyperthyroid EKG shows sinus tachycardia without abnormal conduction History of Present Illness Attending Physician: Colette Gamez MD, FACOG History of Present Illness 6 para 5 approximate 32-week female admitted with left-sided flank pain with concern for renal colic. Patient is seeing urology and imaging of her abdomen cannot rule out a renal stone given her gravid uterus she does have some hydronephrosis on the left side consistent with her pain. She is having some tachycardia and has been placed on antibiotics prophylactically for concern of urinary tract infection. Culture results are currently pending. However urine analysis is abnormal but does not have leukocyte esterase or nitrates Certainly her tachycardia is most likely physiologic from discomfort, we will check an EKG to determine if she is in a sinus tachycardia. We will check thyroid panel as she has not had any care and I cannot find a recent thyroid profile in her chart. This time I would agree with intravenous fluids antibiotics and pain management without further intervention recommended at this time Allergies Allergy/AdvReac Type Severity Reaction Status Date / Time shrimp Allergy Severe Difficulty Verified 08/09/23 10:44 Breathing adhesive Allergy Intermediate Rash Verified 08/09/23 10:44 latex Allergy Intermediate Rash Verified 08/09/23 10:44 contact metal agent Allergy KACY=Ronnie Verified 08/09/23 10:44 h aspirin AdvReac Mild Nausea Verified 08/09/23 10:44 Home Medications Medication Instructions Recorded Confirmed Type albuterol sulfate 90 mcg/actuation 2 puff inhalation QID PRN 01/02/23 08/12/23 Rx aerosol inhaler (Ventolin HFA) Bronchospasm #8.5 grams fexofenadine 180 mg tablet 180 mg PO QAM PRN Allergy Symptoms 01/02/23 08/12/23 History (Raisa Allergy) prenat.vits,ivon,bys-edgt-qwubj 1 tab PO DAILY 03/19/23 08/12/23 History fluticasone propionate 50 1 spray intranasal BID #16 grams 03/20/23 08/12/23 Rx mcg/actuation nasal spray,suspension blood sugar diagnostic (OneTouch #150 ea 04/15/23 08/09/23 Rx Verio test strips) blood-glucose meter (OneTouch #1 ea 04/15/23 08/09/23 Rx Verio Reflect Meter) lancets 33 gauge #150 ea 04/15/23 08/09/23 Rx Patient History Medical History Asthma Depression Fibromyalgia Generalized anxiety disorder GERD (gastroesophageal reflux disease) Hyperlipidemia Hypertension Migraine Seizure disorder Remote hx of "stress seizures", previously on Zonisamide- discontinued, no recent issues Surgical History History of esophagogastroduodenoscopy (EGD) Hx of colonoscopy Hx of cystoscopy 08/23/22 [facility] Cystoscopy, stent (05/29/22): MAC at [facility] Hx of lithotripsy Hx of sinus surgery x2 Hx of tooth extraction Hx of wisdom tooth extraction Previous section x5 Family History Father Kidney stones Hypertension Mother Hypertension Sister Hypertension Uncle Colorectal cancer Myocardial infarction Grandfather (Paternal) Prostate cancer Myocardial infarction Other No family history of adverse response to anesthesia Denies family history of Ovarian cancer Breast cancer Social History Smoking Status: Current every day smoker Tobacco Type: Cigarettes Age Started Using Tobacco: 18; Cigarettes Per Day: Less than 1/2 PPD.; Second Hand Exposure: No; Do You Dip or Chew Tobacco: No; Hx Alcohol Use: No Hx Substance Use: No Preferred Language: Italian Communication Ability: Effective Visual Impairment: No Limitations Hearing Ability: Normal Sheriff Sergeant Required: No Beliefs That Will Affect Care: None marital status: Single marital status details: Oumar (32) [phone] Current Living Situation: Other Current Living Situation Comment: Lives with boyfriend, Oumar, and his Aunt and Uncle. 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 How many Children do You have: 6 Feels Safe at Home: Yes Childhood Exposure to Second-Hand Smoke: Yes Diet: regular Dental Care, Regularly: No Physical Activity Frequency: Daily Seatbelt Use: always Sunscreen Use: Yes Assistive Devices: Glasses Review of Systems Review of Systems: Patient has left flank pain this seems to be controlled otherwise no other real complaint Physical Exam Physical Exam: pt is awake and alert cardiac exam is regular, no murmurs although states she has a heart murmur lungs are clear ext without edema Results & Data Results & Data Vital Signs (Past 12 Hours) Vital Signs Temp Pulse Resp BP Pulse Ox O2 Del Method 08/13/23 03:30 98.1 F 138 H 20 114/71 94 Room Air 08/13/23 04:03 118 H 18 97 Room Air 08/12/23 23:10 98.8 F 136 H 18 81/63 L 95 Room Air Laboratory Results Reviewed CBC reviewed chemistry reviewed imaging urinalysis pending culture results of urine and blood PG Care Time/CCT Total # of Minutes Spent Total Time Spent with Patient: Total time spent is greater than 50% in coordination of care (as documented) at patient's floor/unit and/or counseling patient: Coding Level of Care Code 69611 IN/OBS CONSULT LVL 3,45M Diagnoses Left flank pain R10.9 Tachycardia R00.0
--- NOTE | 2023-08-13 09:42 | Electrocardiogram Report ---
Test Reason : Blood Pressure : / mmHG Vent. Rate : 130 BPM Atrial Rate : 130 BPM P-R Int : 134 ms QRS Dur : 080 ms QT Int : 296 ms P-R-T Axes : 056 002 029 degrees QTc Int : 435 ms Sinus tachycardia Otherwise normal ECG No previous ECGs available Confirmed by Mk Rush ([id number]) on 08/13/2023 9:42:14 AM Referred By: REFERRED SELF Confirmed By:Leandro Rush
[2023-08-13] MEDS: NICOTINE 21 MG/24 HR TDSY TD SCH (09:52)
[2023-08-13 09:53] LABS: Thyroid Stimulating Hormone 0.434 uIu/ml (0.300-4.500)
--- NOTE | 2023-08-14 13:27 | Discharge Summary ---
Date of Service August 14, 2023 Admission HPI Per Admitting Provider HPI from Dr. Palomino earlier in the day today--Patient is a 38-year-old 6 para 5-0-0-6 female EDC of 10/05/2023 who presents at 32-2/7 weeks with worsening left flank pain radiating to her left groin. Her pain started several hours ago and was mild but progressed to the point where she is unable to walk or sit comfortably. Patient has a long history of bilateral ureteral stones. Most recently she was treated by Dr. Nick for an obstructing right ureteral stone. She had also been treated for a left obstructing ureteral stone and sepsis in September 2022. Feels like she may be having some chills or fever but has not taken her temperature. She denies any contraction pain however she has decreased movement. She denies hematuria or dysuria. She also denies any vaginal bleeding change in vaginal discharge. has also been complicated by diagnosis of gestational diabetes which has been difficult to manage as patient has had infrequent visits in contact with endocrinol kirk as she travels frequently for her job. is also complicated by a prior history of 5 sections. She was scheduled to see maternal- medicine at [facility] later this morning for discussion of transfer care and delivery at their facility because of her extensive section and history and concerns for delivery here at [facility] or blood products are not as available as it would be at a tertiary care center like [place]. Patient was evaluated in labor and delivery and baby was reactive with no contraction activity. She was then sent to the ED for evaluation of suspected stones. Notes from the ED--HISTORY OF PRESENTING ILLNESS: This 38-year-old female patient who is 32 weeks presents to the emergency department for evaluation of possible kidney stones. The patient initially presented to L&D via ambulance for concerns that she was going into labor. However, after evaluation and observation through L&D, it was found that the patient was not in labor. They suspected a possible kidney stone on the left side since she has a history of kidney stones and is currently seeing urology for her kidney stones. The patient was given IV fluids, IV Morphine, and Flomax for the pain in L&D without improvement. She states that she started with left sided flank pain at 8 pm tonight that was initially mild, but has gotten progressively worse. She denies any urinary symptoms. Denies any blood in her urine. Denies any changes in her BMs. The baby has been moving well and she denies any vaginal bleeding. She follows with Dr. Nick of urology. Per evaluation of the DYEING MACHINE BACK TENDER note from today, the heart tracing is reassuring and there is no contractile activity occurring. The patient had prol onged monitoring without any changes and no development of uterine contractions. DYEING MACHINE BACK TENDER suspected her flank pain is due to hydronephrosis from ureteral stone or possible pyelonephritis. The patient has been afebrile. Laboratory studies obtained on L&D showed a white blood cell count of 26.70, hemoglobin 11.6, and platelet count of 217. Urinalysis with 2+ leukocytes, 10- 30 white blood cells, and 10-20 epithelial cells. MDM SUMMARY: I examined the patient. I reviewed the work-up and notes from DYEING MACHINE BACK TENDER where she was seen prior to being seen in the emergency department. The patient is not in active labor and the heart tracing is reassuring per DYEING MACHINE BACK TENDER. There was concern for a possible kidney stone due to the sudden onset of left flank pain with history of kidney stones. The patient's CBC showed a white blood cell count of 26.70 that may be secondary to the and pain, but also may be secondary to infection. The patient has been afebrile. The patient's urinalysis was questionable for infection versus contamination. Urine culture is pending. Renal functions were normal. Renal ultrasound showed hydroureteronephrosis which could be caused by the mass effect from the gravid uterus, but an obstructing ureteral stone is not excluded. I spoke with urology about the patient and they reviewed the patient's work-up. They cannot rule in or out a stone at this time. They recommended hydration, pain control, and starting antibiotics prophylactically to cover for possible infection pending culture results. The patient did not feel that she could tolerate the pain at home and requested admission for pain control. I spoke with DYEING MACHINE BACK TENDER who agreed to admit the patient for further management. Please refer to their dictation for further details. The patient's care was transferred in stable condition. The patient is now being admitted on the antepartum service for pain management, fluids, iv antibiotics. Urology was consulted and please see report. When I enter the room, the patient is sitting up and eating. she notes her pain is a little better, was able to get a nap. Discharge Data Consultations 08/12/23 08:14 ED Decision to Admit Stat 08/12/23 08:20 Consult Urology Stat 08/13/23 08:17 Consult Medical [Consult Internal Medicine] Routine Hospital Course (1) Left flank pain: (2) Hydroureteronephrosis: (3) : (4) Previous delivery affecting , antepartum: Plan Patient was admitted, underwent aggressive IVF hydration and urine strained. She was started on ceftriaxone on HD 1 and then changed to cefipime on HD#2. She continued to have flank pain and discomfort requiring IV pain meds for control. She had minimal n/v and tolerated a regular diet. On HD#2, she spiked a fever to 38.2. Given this and on urology's recommendation, she was transferred to [facility] [place] higher level of care than what we are able to provide here. She is also 32 weeks and with this is at increased risk of labor which is best cared for at the tertiary care center. Patient had a reactive nst q shift here and no s/s of labor while here. Coding Level of Care Code None Diagnoses Left flank pain R10.9 Hydroureteronephrosis N13.30 Z3A.32 Weeks of gestation: 32 weeks Previous delivery affecting , antepartum O34.219
== END 2023-08-13 13:25 | disposition short-term general hospital (02) | DRG 832 ==
LOC: ED 05:16 → 4E1 09:31 → INTOOBSV 09:43 → 4E1 09:43

== ENCOUNTER 2025-06-01 10:30 | Observation (INO) ==
--- NOTE | 2025-06-01 11:11 | Emergency Department Note ---
Impression & Plan Renal colic, Acute right flank pain, Hydronephrosis, Ureteral stone ED Provider Note NAME: TERRY DIAMOND AGE: 40 SEX: F : 1985 ARRIVES VIA: Ambulance INFORMANT: [Patient] ED PROVIDER(S): [Jamel Taylor MD] CHIEF COMPLAINT: Flank pain HISTORY OF PRESENT ILLNESS: The patient is a 40-year-old female with a history of previous renal stone. She presents with right flank pain that seems to radiate to the front. The pain has been present since last evening. There has been some mild nausea but no vomiting. She has felt hot and cold but she has not noted a true fever. Her urine has been discolored and sometimes, foul-smelling. The patient states that the pain started while she was walking, she was not lifting or bending. She does feel better though when she lays on her left side. She feels worse laying on her right side. She presents by ambulance. PMHx/PSHx/Social Hx: See Below PHYSICAL EXAM: GENERAL: Patient is in no acute distress. HEENT: No acute trauma, normocephalic atraumatic, mucous membranes moist, no nasal congestion. NECK: No stridor, no adenopathy, no meningismus, trachea is midline. LUNGS: Clear to auscultation bilaterally, no wheeze, no rhonchi, breath sounds equal. Breath sounds diminished bilaterally. HEART: Without murmurs gallops or rubs, regular rate and rhythm. ABDOMEN: Soft, nontender, no peritonitis. EXTREMITIES: No cyanosis, full range of motion of all the joints without pain or difficulty. NEUROLOGIC: Oriented x 3, no acute motor or sensory deficits, no focal weakness. SKIN: No jaundice, no diaphoresis. Back: Tender to palpate the right lumbar musculature. Pain worsens when she tries to roll to her right side. No rash. DIFFERENTIAL DIAGNOSIS: Musculoskeletal pain, pyelonephritis, renal colic, hydronephrosis, among others. EMERGENCY DEPARTMENT PROCEDURES: MEDICAL DECISION MAKING: There is no leukocytosis or concerning anemia. There is a normal platelet count. No renal failure or significant electrolyte abnormality. No concerning liver enzyme elevation. No evidence for pancreatitis. testing was negative. Urinalysis did not show findings of infection. Abdominal and pelvis CT shows a large 1 cm distal right ureteral stone with hydronephrosis. The patient received IV hydration, she was given IV Zofran. She was given IV morphine, she received IV Toradol, she was given IV Dilaudid. The patient has significant discomfort from his right ureteral stone. The stone is quite large and will very likely require urologic intervention. I spoke with urology, hospitalization on the medicine service was recommended. Urology will likely at some point place a right ureteral stent. I did speak with the patient, I spoke with case management, the on-call hospitalist has been consulted. Prior/Outside records/notes reviewed: Today's EMS notes describing her presentation and transport to this hospital. Imaging/x-ray results per my interpretation: Chronic Medical/Social conditions affecting care: None Care/Management discussed with: Urology-Dr. Aguila's service. Case management and the on-call hospitalist. Level of care consideration(s): After review of the information above and other included data: --I believe the patient requires escalation of care to admission DISPOSITION: Admission Past Med/Surg History Problem List Ureteral stone (Acute) Hydronephrosis (Acute) Acute right flank pain (Acute) Renal colic (Acute) Right distal ureteral calculus Diarrhea Abdominal pain Change in bowel habits Menorrhagia Tachycardia Hydroureteronephrosis (Acute) Left flank pain (Acute) HPV in female Food allergy Generalized anxiety disorder Seasonal allergies GERD (gastroesophageal reflux disease) Hyperlipidemia Nephrolithiasis (Chronic) Hx of sepsis (2022) admit at [facility] / kidney stones Medical History Orthostatic dizziness Per cardio records Family history of adverse reaction to anesthesia Mother - significant PONV Father - decreased in BP (took Lisinopril per patient) Maternal grandmother- "turned green" post operatively- no other specifics- grandmother is still alive Menorrhagia Reason for procedure 03/19/25 "They said I had fluid on the ultrasound" as per patient Lupus (systemic lupus erythematosus) possibly - pcp had blood test completed, patient doesn't have results yet on lupus, doesn't think results will be until the end of 03/2025 - lyme was (-) as per patient History of postoperative nausea and vomiting History of syncope 2022 states was caused by pain Hyperlipidemia Medical non-compliance states stopped po meds (nortriptylline, lansoprazole) due to having "stomach pain"- advised to make ordering provider awares MIRYAM (generalized anxiety disorder) Palpitations sees dr. angel- no findings GERD (gastroesophageal reflux disease) Hx of migraines Hx of renal calculi (2022) Hx gestational diabetes Seasonal allergies Fibromyalgia Asthma prn inhaler use Depression Seizure disorder Remote hx of "stress seizures", previously on Zonisamide- discontinued, no recent issues, states after kidney stones resolved no longer had seizures or blood pressure issues Hypertension Surgical History History of tubal ligation S/P cystoscopy with ureteral stent placement (2022) History of esophagogastroduodenoscopy (EGD) Hx of colonoscopy Hx of sinus surgery x2 Hx of lithotripsy Hx of tooth extraction Hx of wisdom tooth extraction Previous section x 6, most recent 09/20/23 Family History Father Kidney stones Hypertension Mother Hypertension Sister Hypertension Uncle Colorectal cancer Myocardial infarction Grandfather (Paternal) Prostate cancer Myocardial infarction Other No family history of adverse response to anesthesia Denies family history of Ovarian cancer Breast cancer Social History Smoking Status: Current every day smoker Tobacco Type: Cigarettes Age Started Using Tobacco: 18; packs per day: 0.5; Cigarettes Per Day: 10; Second Hand Exposure: No; Do You Dip or Chew Tobacco: No; Hx Alcohol Use: No Hx Substance Use: No Preferred Language: Slovenian Communication Ability: Effective Visual Impairment: No Limitations Hearing Ability: Normal Medical Biller Coder Required: No Beliefs That Will Affect Care: None marital status: Single marital status details: Oumar [phone] Current Living Situation: Family Current Living Situation Comment: Lives with boyfrOumar whaley current occupational status: employed 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 How many Children do You have: 6 Feels Safe at Home: Yes Childhood Exposure to Second-Hand Smoke: Yes Diet: regular Dental Care, Regularly: No Physical Activity Frequency: Daily Seatbelt Use: always Sunscreen Use: Yes Assistive Devices: None Allergies Allergies Allergy/AdvReac Type Severity Reaction Status Date / Time shrimp Allergy Severe Difficulty Verified 06/01/25 14:58 Breathing adhesive Allergy Intermediate Rash Verified 06/01/25 14:58 contact metal agent Allergy Intermediate May=Ronnie Verified 06/01/25 14:58 h latex Allergy Intermediate Rash Verified 06/01/25 14:58 gold Au 198 Allergy Mild Rash, hives Verified 06/01/25 14:58 nickel Allergy Mild Rash Verified 06/01/25 14:58 prednisone AdvReac Severe Swelling Verified 06/01/25 14:58 of Lip/Tongue/Throat aspirin AdvReac Mild Nausea Verified 06/01/25 14:58 Home Meds Home Medications Medication Instructions Recorded Confirmed azelastine 137 mcg (0.1 %) nasal 1 - 2 spray intranasal .1-2X DAILY 09/15/24 06/01/25 spray PRN Allergic Symptoms fluticasone propionate 50 1 spray intranasal BID PRN 09/15/24 06/01/25 mcg/actuation nasal allergies spray,suspension (Flonase Allergy Relief) cholestyramine 4 gram oral powder 4 g PO BID 03/19/25 06/01/25 for suspension in a packet (Prevalite) oxymetazoline 0.05 % nasal spray 2 spray intranasal Q12H PRN 03/19/25 06/01/25 (Afrin Sinus (oxymetazoline)) Allergic Symptoms Allergy Medication 1 cap PO DAILY 06/01/25 06/01/25 cyclobenzaprine 5 mg tablet 5 - 10 mg PO TID PRN back pain 06/01/25 06/01/25 multivitamin 1 tab PO DAILY 06/01/25 06/01/25 Previous Rx's Medication Instructions Recorded blood sugar diagnostic (OneTouch #150 ea 04/15/23 Verio test strips) blood-glucose meter (OneTouch #1 ea 04/15/23 Verio Reflect Meter) Abdominal Binder #1 ea 03/23/25 lancets 33 gauge #150 ea 04/06/25 lancets 33 gauge (OneTouch Delica #100 ea 04/07/25 Plus Lancet) albuterol sulfate 90 mcg/actuation 2 inh inhalation QID PRN shortness 05/04/25 aerosol inhaler (Ventolin HFA) of breath or wheezing #8.5 grams pantoprazole 40 mg tablet,delayed 40 mg PO DAILY 30 days #30 tabs 05/11/25 release (Protonix) sertraline 50 mg tablet 50 mg PO DAILY #30 tabs 05/13/25 Results & Data (ED) Vital Signs Vital Signs - 24 hr 06/01/25 10:43 06/01/25 10:58 06/01/25 11:00 Temperature 36.4 C L 36.4 C L Temperature Source Oral Oral Pulse Rate 82 67 Pulse Rate [Apical] 82 Respiratory Rate 20 20 Respiratory Effort / Characteristics Respiratory Depth Blood Pressure 141/99 H Blood Pressure [Right Arm] 141/99 H Blood Pressure Mean 113 Blood Pressure Mean [Right Arm] 113 Blood Pressure Position Semi-fowlers Blood Pressure Position [Right Arm] Semi-fowlers Pulse Oximetry 95 95 Oxygen Delivery Method Room Air Room Air Sepsis Recent Fever Within 48 Hours No Sepsis New/Unexplained Change in Mental Status No Sepsis Action Taken by Nursing No Action Required 06/01/25 12:30 Temperature Temperature Source Pulse Rate Pulse Rate [Apical] 67 Respiratory Rate 18 Respiratory Effort / Characteristics Non-Labored Spontaneous Respiratory Depth Normal Blood Pressure Blood Pressure [Right Arm] 122/62 Blood Pressure Mean Blood Pressure Mean [Right Arm] 82 Blood Pressure Position Blood Pressure Position [Right Arm] Pulse Oximetry 97 Oxygen Delivery Method Room Air Sepsis Recent Fever Within 48 Hours Sepsis New/Unexplained Change in Mental Status Sepsis Action Taken by [facility] Medications Current Medication List: was personally reviewed by me Laboratory Data Attestation: I reviewed the patient's lab results. 06/01/25 10:39 06/01/25 10:39 Lab Results 06/01/25 06/01/25 Range/Units 10:39 10:44 WBC 8.06 (4.8-10.8) K/ul RBC 5.10 (4.20-5.40) M/uL Hgb 15.4 (12.0-16.0) g/dl Hct 45.6 (37.0-47.0) % MCV 89.4 (80.0-100.0) fL MCH 30.2 (25.0-34.0) pg MCHC 33.8 (32.0-36.0) g/dL RDW Std Deviation 45.1 (36.4-46.3) fL RDW Coeff of Kalpesh 13.7 (11.5-14.5) % Plt Count 278 (130-400) K/uL MPV 10.6 (9.4-12.4) fL Immature Gran % (Auto) 0.4 % Neut % (Auto) 61.4 % Lymph % (Auto) 25.8 % [place]aver % (Auto) 7.6 % Eos % (Auto) 3.6 % Baso % (Auto) 1.2 % Neut # (Auto) 4.95 (1.40-6.50) K/uL Lymph # (Auto) 2.08 (1.20-3.40) K/uL Beaver # (Auto) 0.61 H (0.11-0.59) K/uL Eos # (Auto) 0.29 (0.00-0.50) K/uL Baso # (Auto) 0.10 (0.00-0.20) K/uL Immature Gran # (Auto) 0.03 (0.01-0.20) K/uL Sodium 139 (136-145) mmol/L Potassium 4.4 (3.5-5.1) mmol/L Chloride 106 (98-107) mmol/L Carbon Dioxide 26 (21-32) mmol/L Anion Gap 7 (3-11) BUN 14 (6-23) mg/dl Creatinine 0.90 (0.6-1.2) mg/dl Est Cr Clr Drug Dosing 91.0 ml/min eGFR 83.92 BUN/Creatinine Ratio 15.6 (10-20) Glucose 87 (70-99(Fasting)) mg/dl Calcium 9.1 (8.6-10.3) mg/dl Total Bilirubin 0.5 (0.2-1.0) mg/dl AST 12 L (13-39) U/L ALT 12 (7-52) U/L Alkaline Phosphatase 101 (34-104) U/L Total Protein 6.9 (6.0-8.3) gm/dl Albumin 4.0 (3.4-5.0) gm/dl Globulin 2.9 (2.5-4.0) gm/dl Albumin/Globulin Ratio 1.4 (0.9-2) Lipase 31 (11-82) U/L HCG, Qual Negative (Negative) Urine Color Yellow Urine Appearance Clear (Clear) Urine pH 8.0 H (4.5-7.5) Ur Specific [place] 1.015 (1.000-1.030) Urine Protein Negative (Negative) Urine Glucose (UA) Negative (Negative) Urine Ketones Negative (Negative) Urine Blood Negative (Negative) Urine Nitrite Negative (Negative) Urine Bilirubin Negative (Negative) Urine Urobilinogen Negative (Negative) Ur Leukocyte Esterase 1+ H (Negative) Urine WBC (Auto) 6-10 H (0-5) /hpf Urine RBC (Auto) 0-2 (0-2) /hpf U Hyaline Cast (Auto) 0-2 (0-2) /lpf U Epithel Cells (Auto) 6-10 H (0-2) /hpf Urine Bacteria (Auto) None Seen (None Seen) Urine Comment Administered Medications Lactated Ringer's (Lr) 1,000 mls @ 80 mls/hr IV .[id number] CARMEN Stop: 06/02/25 14:14 Last Admin: 06/01/25 13:28 Dose: 80 mls/hr Documented By: BETSY Ceftriaxone Sodium (Rocephin) 2,000 mg in 50 mls @ 100 mls/hr IV Q24H CARMEN Stop: 06/11/25 17:14 Last Infusion: 06/01/25 18:31 Dose: Infused Documented By: Admin: 06/01/25 17:51 Dose: 100 mls/hr Documented By: AMADOR Multivitamins (Multivitamin Tab) 1 tab PO QAM CARMEN Stop: 07/01/25 17:14 Last Admin: 06/01/25 17:51 Dose: 1 tab Documented By: AMADOR Pantoprazole Sodium (Pantoprazole 40 Mg Tab) 40 mg PO DAILYBB CARMEN Stop: 07/01/25 17:14 Last Admin: 06/01/25 17:51 Dose: 40 mg Documented By: AMADOR Sertraline HCl (Sertraline Hcl 50 Mg Tablet) 50 mg PO DAILY CARMEN Stop: 07/01/25 17:14 Last Admin: 06/01/25 17:51 Dose: 50 mg Documented By: AMADOR Discontinued Medications Hydromorphone HCl (Hydromorphone Inj 0.5 Mg/0.5 Ml Syr) 0.5 mg IV NOW STA Stop: 06/01/25 12:32 Last Admin: 06/01/25 13:38 Dose: Not Given Documented By: BETSY Sodium Chloride (Nss) 500 mls @ 999 mls/hr IV .Q31M STA Stop: 06/01/25 11:27 Last Infusion: 06/01/25 12:35 Dose: Infused Documented By: mariposa Admin: 06/01/25 11:18 Dose: 999 mls/hr Documented By: mariposa Cefazolin Sodium (Ancef 2000mg) 2,000 mg in 15 mls @ 3.75 mls/min IV PREOP ONE; Protocol Stop: 06/01/25 14:33 Last Admin: 06/01/25 16:03 Dose: 3.75 mls/min Documented By: TRUNG Lactated Ringer's (Lr) 1,000 mls @ 15 mls/hr IV .Q24H CARMEN Stop: 06/04/25 14:59 Last Infusion: 06/01/25 17:09 Dose: Infused Documented By: Admin: 06/01/25 15:18 Dose: 15 mls/hr Documented By: HILARY Ioversol (Optiray 320 100ml) 92 ml IV ONCE ONE Stop: 06/01/25 11:58 Last Admin: 06/01/25 11:58 Dose: 92 ml Documented By: BRENNAN Ketorolac Tromethamine (Ketorolac Tromethamine 15 Mg/Ml Vial) 15 mg IV NOW STA Stop: 06/01/25 10:58 Last Admin: 06/01/25 12:06 Dose: 15 mg Documented By: mariposa Morphine Sulfate (Morphine Sulfate 4 Mg/Ml 1 Ml Carp\\Vial) 4 mg IV NOW STA Stop: 06/01/25 11:08 Last Admin: 06/01/25 11:19 Dose: 4 mg Documented By: mariposa Ondansetron HCl (Ondansetron Inj 2 Mg/Ml 2 Ml Vial) 4 mg IV NOW STA Stop: 06/01/25 10:58 Last Admin: 06/01/25 11:19 Dose: 4 mg Documented By: mariposa Imaging Data Radiologist's Impression: Abdomen/Pelvis CT 06/01/25 10:57 CT SCAN OF THE ABDOMEN AND PELVIS WITH IV CONTRAST CLINICAL HISTORY: Right flank pain. COMPARISON STUDY: CT of the abdomen and pelvis October 28, 2023. Renal ultrasound May 05, 2025. TECHNIQUE: Following the IV administration of 92 cc of Optiray 320, CT scan of the abdomen and pelvis is performed from the lung bases to the proximal femora. Images are reviewed in the axial, sagittal, and coronal planes. IV contrast was administered without complication. A dose lowering technique was utilized adhering to the principles of ALARA. CT DOSE: 1222.2 mGy.cm FINDINGS: Visualized portions of the lung bases are unremarkable. There is no pneumatosis, free air or portal venous gas. A 1 x 0.7 cm distal right ureteral calculus just below the level of the sacroiliac joint results in moderate right hydroureteronephrosis with delayed right nephrogram and trace perinephric and periureteral stranding/fluid. Numerous bilateral renal calculi are present. These include a 7 mm left lower pole calculus. There are no left ureteral calculi. There is no left hydronephrosis. Moderate left renal cortical thinning is noted with multifocal scarring. There is no evidence for a bowel obstruction. There is trace fluid within the pelvis. No lymphadenopathy. Major vasculature is patent. The appendix is normal. IMPRESSION: 1. 1 x 0.7 cm distal right ureteral calculus, just below the level of the sacroiliac joint, which results in moderate right hydroureteronephrosis. 2. Extensive bilateral nephrolithiasis. No left ureteral calculi. No left hydronephrosis. Left renal cortical thinning and scarring. ACT 112: Negative or not required by law. Electronically signed by: Meir France M.D. 06/01/2025 12:18 PM Discharge Plan Visit Data Chief Complaint: Flank Pain Stated Complaint: BACK PAIN ED Provider: Jamel Taylor Discharge Problem: Renal colic, Acute right flank pain, Hydronephrosis, Ureteral stone Patient Disposition: Admitted As Inpatient Condition: Fair Discharge Instructions Interventions: ED Discharge Assessment Last Done: 06/01/25 16:27 Discharge Problem: Hydronephrosis Qualifiers: Hydronephrosis type: with renal calculous obstruction Qualified Code(s): N13.2 - Hydronephrosis with renal and ureteral calculous obstruction
[2025-06-01 11:16] LABS: Hematocrit (blood only) 45.6 % (37.0-47.0); Hemoglobin 15.4 g/dl (12.0-16.0); Immature Granulocytes # (auto) 0.03 K/uL (0.01-0.20); Immature Granulocytes % (auto) 0.4 %; Mean Corpuscular Hemoglobin 30.2 pg (25.0-34.0); Mean Corpuscular Volume 89.4 fL (80.0-100.0); Platelet Count 278 K/uL (130-400); RDW Standard Deviation 45.1 fL (36.4-46.3); Red Blood Count 5.10 M/uL (4.20-5.40); White Blood Count 8.06 K/ul (4.8-10.8)
[2025-06-01] MEDS: SODIUM CHLORIDE 0.9% 500 ML IV STA (11:18)
[2025-06-01] MEDS: MoRPHine SULFATE 4 MG/ML 1 ML CARP\\VIAL IV STA (11:19)
[2025-06-01] MEDS: ONDANSETRON INJ 2 MG/ML 2 ML VIAL IV STA (11:19)
[2025-06-01 11:32] LABS: Pregnancy Test, Serum Negative (Negative)
[2025-06-01 11:35] LABS: Alanine Aminotransferase 12.0 U/L (7-52); Albumin Globulin Ratio 1.4 (0.9-2); Alkaline Phosphatase 101.0 U/L (34-104); Anion Gap 7.0 (3-11); Bilirubin,Total 0.5 mg/dl (0.2-1.0); Blood Urea Nitrogen 14.0 mg/dl (6-23); Calcium 9.1 mg/dl (8.6-10.3); Carbon Dioxide 26.0 mmol/L (21-32); Chloride 106.0 mmol/L (98-107); Creatinine Clr Calc Pharmacy 91.0 ml/min; Globulin 2.9 gm/dl (2.5-4.0); Glucose 87.0 mg/dl (70-99(Fasting)); Lipase 31.0 U/L (11-82); Potassium 4.4 mmol/L (3.5-5.1); Sodium 139.0 mmol/L (136-145); Total Protein 6.9 gm/dl (6.0-8.3)
[2025-06-01] MEDS: OPTIRAY 320 100ml IV ONE (11:58)
[2025-06-01 12:06] LABS: Appearance Urine Clear (Clear); Glucose Urine UA Negative (Negative)
[2025-06-01] MEDS: KETOROLAC TROMETHAMINE 15 MG/ML VIAL IV STA (12:06)
--- NOTE | 2025-06-01 12:19 | CT Scan Report ---
CT SCAN OF THE ABDOMEN AND PELVIS WITH IV CONTRAST CLINICAL HISTORY: Right flank pain. COMPARISON STUDY: CT of the abdomen and pelvis October 28, 2023. Renal ultrasound May 05, 2025. TECHNIQUE: Following the IV administration of 92 cc of Optiray 320, CT scan of the abdomen and pelvi s is performed from the lung bases to the proximal femora. Images are reviewed in the axial, sagittal , and coronal planes. IV contrast was administered without complication. A dose lowering technique wa s utilized adhering to the principles of ALARA. CT DOSE: 1222.2 mGy.cm FINDINGS: Visualized portions of the lung bases are unremarkable. There is no pneumatosis, free air o r portal venous gas. A 1 x 0.7 cm distal right ureteral calculus just below the level of the sacroili ac joint results in moderate right hydroureteronephrosis with delayed right nephrogram and trace sebastien nephric and periureteral stranding/fluid. Numerous bilateral renal calculi are present. These include a 7 mm left lower pole calculus. There are no left ureteral calculi. There is no left hydronephrosis . Moderate left renal cortical thinning is noted with multifocal scarring. There is no evidence for a bowel obstruction. There is trace fluid within the pelvis. No lymphadenopathy. Major vasculature is patent. The appendix is normal. IMPRESSION: 1. 1 x 0.7 cm distal right ureteral calculus, just below the level of the sacroiliac joint, which res ults in moderate right hydroureteronephrosis. 2. Extensive bilateral nephrolithiasis. No left ureteral calculi. No left hydronephrosis. Left renal cortical thinning and scarring. ACT 112: Negative or not required by law. Electronically signed by: Meir France M.D. 06/01/2025 12:18 PM
[2025-06-01 12:31] LABS: Bacteria Urine Automated None Seen (None Seen); Cast Urine Automated 0-2 /lpf (0-2); RBC Urine Automated 0-2 /hpf (0-2)
--- NOTE | 2025-06-01 13:13 | History & Physical Report ---
Date of Service June 01, 2025 Assessment & Plan (1) Right distal ureteral calculus: (2) Hydroureteronephrosis: (3) GERD (gastroesophageal reflux disease): (4) Generalized anxiety disorder: Plan The patient is a 40-year-old female with past medical history including hydroureteronephrosis, generalized anxiety disorder, seasonal allergy, GERD, hyperlipidemia, nephrolithiasis, history of sepsis, previous kidney stone requiring stent placement. The patient presents to the emergency department with symptoms that began last evening including nausea and right-sided abdominal and flank pain, that worsened during the day today. She presents today with the symptoms, similar to previous kidney stones. Distal right ureteral calculus 1 x 0.7 cm/moderate right hydronephrosis- From the ED the patient is received the following: Normal saline 500 mL bolus, Toradol 15 mg IV, Zofran 4 mg IV, morphine 4 mg IV, and Dilaudid 0.5 mg IV. Follow urine culture and sensitivity Acetaminophen 1 g IV every 8 hours as needed for mild pain or fever Dilaudid 0.25 mg IV every 3 hours as needed for moderate pain Dilaudid 0.5 mg IV every 3 hours as needed for severe pain Ceftriaxone 2 g IV every 24 hours Lactated Ringer's at 80 mL/h x 2 L Consult urology Anxiety- Continue sertraline 50 mg daily GERD- Continue Protonix 40 mg daily Asthma/allergy- Continue albuterol HFA,, azelastine and fluticasone DuoNebs every 2 hours as needed Prediabetes- Not on medications in the outpatient setting Patient Accu-Cheks with NovoLog SSI History of Present Illness Chief Complaint: The patient presents to the emergency department with complaint of nausea and abdominal and right flank pain that began last evening, and worsened throughout the day today. She reports that the pain radiates around to the front today as well. She has had feelings of intermittent hot and cold however does not actually had a fever. Primary Care Provider: Reji Najera DO The patient is a 40-year-old female with past medical history including hydroureteronephrosis, generalized anxiety disorder, seasonal allergy, GERD, hyperlipidemia, nephrolithiasis, history of sepsis, previous kidney stone requiring stent placement. The patient presents to the emergency department with symptoms that began last evening including nausea and right-sided abdominal and flank pain, that worsened during the day today. She presents today with the symptoms, similar to previous kidney stones. Allergies Allergy/AdvReac Type Severity Reaction Status Date / Time shrimp Allergy Severe Difficulty Verified 05/13/25 11:51 Breathing adhesive Allergy Intermediate Rash Verified 05/13/25 11:51 contact metal agent Allergy Intermediate [place]=Ronnie Verified 05/13/25 11:51 h latex Allergy Intermediate Rash Verified 05/13/25 11:51 gold Au 198 Allergy Mild Rash Verified 05/13/25 11:51 nickel Allergy Mild Rash Verified 05/13/25 11:51 prednisone AdvReac Severe Swelling Verified 05/13/25 11:51 of Lip/Tongue/Throat aspirin AdvReac Mild Nausea Verified 05/13/25 11:51 Home Medications Medication Instructions Recorded Confirmed Type blood sugar diagnostic (OneTouch #150 ea 04/15/23 05/13/25 Rx Verio test strips) blood-glucose meter (OneTouch #1 ea 04/15/23 05/13/25 Rx Verio Reflect Meter) azelastine 137 mcg (0.1 %) nasal 1 - 2 spray intranasal .1-2X DAILY 09/15/24 06/01/25 History spray PRN Allergic Symptoms fluticasone propionate 50 1 spray intranasal BID PRN 09/15/24 06/01/25 History mcg/actuation nasal allergies spray,suspension (Flonase Allergy Relief) cholestyramine 4 gram oral powder 4 g PO BID 03/19/25 06/01/25 History for suspension in a packet (Prevalite) oxymetazoline 0.05 % nasal spray 2 spray intranasal Q12H PRN 03/19/25 06/01/25 History (Afrin Sinus (oxymetazoline)) Allergic Symptoms Abdominal Binder #1 ea 03/23/25 05/13/25 Rx lancets 33 gauge #150 ea 04/06/25 05/13/25 Rx lancets 33 gauge (OneTouch Delica #100 ea 04/07/25 05/13/25 Rx Plus Lancet) albuterol sulfate 90 mcg/actuation 2 inh inhalation QID PRN shortness 05/04/25 06/01/25 Rx aerosol inhaler (Ventolin HFA) of breath or wheezing #8.5 grams pantoprazole 40 mg tablet,delayed 40 mg PO DAILY 30 days #30 tabs 05/11/25 06/01/25 Rx release (Protonix) sertraline 50 mg tablet 50 mg PO DAILY #30 tabs 05/13/25 06/01/25 Rx Allergy Medication 1 cap PO DAILY 06/01/25 06/01/25 History cyclobenzaprine 5 mg tablet 5 - 10 mg PO TID PRN back pain 06/01/25 06/01/25 History multivitamin 1 tab PO DAILY 06/01/25 06/01/25 History Past Med/Surg History Problem List (Updated 06/01/25 @ 13:09 by Carlton Hamilton MD) Right distal ureteral calculus Diarrhea Abdominal pain Change in bowel habits Menorrhagia Tachycardia Hydroureteronephrosis (Acute) Left flank pain (Acute) HPV in female Food allergy Generalized anxiety disorder Seasonal allergies GERD (gastroesophageal reflux disease) Hyperlipidemia Nephrolithiasis (Chronic) Hx of sepsis (2022) admit at [facility] / kidney stones Medical History (Updated 06/01/25 @ 13:09 by Carlton Hamilton MD) Orthostatic dizziness Per cardio records Family history of adverse reaction to anesthesia Mother - significant PONV Father - decreased in BP (took Lisinopril per patient) Maternal grandmother- "turned green" post operatively- no other specifics- grandmother is still alive Menorrhagia Reason for procedure 03/19/25 "They said I had fluid on the ultrasound" as per patient Lupus (systemic lupus erythematosus) possibly - pcp had blood test completed, patient doesn't have results yet on lupus, doesn't think results will be until the end of 03/2025 - lyme was (-) as per patient History of postoperative nausea and vomiting History of syncope 2022 states was caused by pain Hyperlipidemia Medical non-compliance states stopped po meds (nortriptylline, lansoprazole) due to having "stomach pain"- advised to make ordering provider awares MIRYAM (generalized anxiety disorder) Palpitations sees dr. angel- no findings GERD (gastroesophageal reflux disease) Hx of migraines Hx of renal calculi (2022) Hx gestational diabetes Seasonal allergies Fibromyalgia Asthma prn inhaler use Depression Seizure disorder Remote hx of "stress seizures", previously on Zonisamide- discontinued, no recent issues, states after kidney stones resolved no longer had seizures or blood pressure issues Hypertension Surgical History History of tubal ligation S/P cystoscopy with ureteral stent placement (2022) History of esophagogastroduodenoscopy (EGD) Hx of colonoscopy Hx of sinus surgery x2 Hx of lithotripsy Hx of tooth extraction Hx of wisdom tooth extraction Previous section x 6, most recent 09/20/23 Family History Father Kidney stones Hypertension Mother Hypertension Sister Hypertension Uncle Colorectal cancer Myocardial infarction Grandfather (Paternal) Prostate cancer Myocardial infarction Other No family history of adverse response to anesthesia Denies family history of Ovarian cancer Breast cancer Social History Smoking Status: Current every day smoker Tobacco Type: Cigarettes Age Started Using Tobacco: 18; packs per day: 0.5; Cigarettes Per Day: 1/2; Second Hand Exposure: No; Do You Dip or Chew Tobacco: No; Hx Alcohol Use: No Hx Substance Use: No Preferred Language: Upper Sorbian Communication Ability: Effective Visual Impairment: No Limitations Hearing Ability: Normal Insole Filler Required: No Beliefs That Will Affect Care: None marital status: Single marital status details: Oumar [phone] Current Living Situation: Family Current Living Situation Comment: Lives with Oumar gomez current occupational status: employed 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 How many Children do You have: 6 Feels Safe at Home: Yes Childhood Exposure to Second-Hand Smoke: Yes Diet: regular Dental Care, Regularly: No Physical Activity Frequency: Daily Seatbelt Use: always Sunscreen Use: Yes Assistive Devices: Denture - Upper, Denture - Lower and Glasses Review of Systems Review of Systems: The patient denies chest pain, palpitations, shortness of breath, dyspnea on exertion, cough, lower extremity swelling, sore throat, fevers, chills, sweats, vomiting, diarrhea , constipation, blood in urine or stool, lightheadedness, dizziness, headache, memory loss, loss of consciousness, rash, abnormal bruising or bleeding, imbalance, focal or generalized weakness, numbness or tingling in arms or legs, generalized arthralgias or myalgias, neck pain, or night sweats. The review of systems is otherwise negative other than for that already noted above, and at least 10 systems have been reviewed. Physical Exam Physical Exam: The patient is awake, alert and oriented 3, well developed and well nourished, normocephalic and atraumatic, lying in bed and in no acute distress. HEENT--PERRL, EOMI, mucous membranes and oropharynx mildly dry. Neck--supple. No JVD. No bruits. Thyroid normal, trachea midline, no adenopathy. Heart--normal S1 and S2. No murmurs, rubs or gallops. Lungs--clear bilaterally, no respiratory distress, no accessory muscle use. Abdomen--normal bowel sounds and soft. Nontender. Nondistended Extremities--no cyanosis or clubbing. No edema. There are good distal pulses b/l. Dermatologic--normal skin turgor, normal color, no abnormal lymph nodes, no rash. Neurologic--cranial nerves II through XII grossly intact. Rheumatologic--normal range of motion. Psychiatric--normal affect. Results & Data Results & Data Vital Signs (Past 12 Hours) Vital Signs Temp Pulse Pulse Resp BP BP Pulse Ox 06/01/25 12:30 67 18 122/62 97 06/01/25 11:00 36.4 C L 82 20 141/99 H 95 06/01/25 10:58 67 06/01/25 10:43 36.4 C L 82 20 141/99 H 95 O2 Del Method 06/01/25 12:30 Room Air 06/01/25 11:00 Room Air 06/01/25 10:58 06/01/25 10:43 Room Air Laboratory Results Laboratory Results WBC 8.06 K/ul (4.8-10.8) 06/01/25 10:39 RBC 5.10 M/uL (4.20-5.40) 06/01/25 10:39 Hgb 15.4 g/dl (12.0-16.0) 06/01/25 10:39 Hct 45.6 % (37.0-47.0) 06/01/25 10:39 MCV 89.4 fL (80.0-100.0) 06/01/25 10:39 MCH 30.2 pg (25.0-34.0) 06/01/25 10:39 MCHC 33.8 g/dL (32.0-36.0) 06/01/25 10:39 RDW Std Deviation 45.1 fL (36.4-46.3) 06/01/25 10:39 RDW Coeff of Kalpesh 13.7 % (11.5-14.5) 06/01/25 10:39 Plt Count 278 K/uL (130-400) 06/01/25 10:39 MPV 10.6 fL (9.4-12.4) 06/01/25 10:39 Immature Gran % (Auto) 0.4 % 06/01/25 10:39 Neut % (Auto) 61.4 % 06/01/25 10:39 Lymph % (Auto) 25.8 % 06/01/25 10:39 [place] % (Auto) 7.6 % 06/01/25 10:39 Eos % (Auto) 3.6 % 06/01/25 10:39 Baso % (Auto) 1.2 % 06/01/25 10:39 Neut # (Auto) 4.95 K/uL (1.40-6.50) 06/01/25 10:39 Lymph # (Auto) 2.08 K/uL (1.20-3.40) 06/01/25 10:39 [place]oke # (Auto) 0.61 K/uL (0.11-0.59) H 06/01/25 10:39 Eos # (Auto) 0.29 K/uL (0.00-0.50) 06/01/25 10:39 Baso # (Auto) 0.10 K/uL (0.00-0.20) 06/01/25 10:39 Immature Gran # (Auto) 0.03 K/uL (0.01-0.20) 06/01/25 10:39 Sodium 139 mmol/L (136-145) 06/01/25 10:39 Potassium 4.4 mmol/L (3.5-5.1) 06/01/25 10:39 Chloride 106 mmol/L (98-107) 06/01/25 10:39 Carbon Dioxide 26 mmol/L (21-32) 06/01/25 10:39 Anion Gap 7 (3-11) 06/01/25 10:39 BUN 14 mg/dl (6-23) 06/01/25 10:39 Creatinine 0.90 mg/dl (0.6-1.2) 06/01/25 10:39 Est Cr Clr Drug Dosing 91.0 ml/min 06/01/25 10:39 eGFR 83.92 06/01/25 10:39 BUN/Creatinine Ratio 15.6 (10-20) 06/01/25 10:39 Glucose 87 mg/dl (70-99(Fasting)) 06/01/25 10:39 Calcium 9.1 mg/dl (8.6-10.3) 06/01/25 10:39 Total Bilirubin 0.5 mg/dl (0.2-1.0) 06/01/25 10:39 AST 12 U/L (13-39) L 06/01/25 10:39 ALT 12 U/L (7-52) 06/01/25 10:39 Alkaline Phosphatase 101 U/L (34-104) 06/01/25 10:39 Total Protein 6.9 gm/dl (6.0-8.3) 06/01/25 10:39 Albumin 4.0 gm/dl (3.4-5.0) 06/01/25 10:39 Globulin 2.9 gm/dl (2.5-4.0) 06/01/25 10:39 Albumin/Globulin Ratio 1.4 (0.9-2) 06/01/25 10:39 Lipase 31 U/L (11-82) 06/01/25 10:39 HCG, Qual Negative (Negative) 06/01/25 10:39 Urine Color Yellow 06/01/25 10:44 Urine Appearance Clear (Clear) 06/01/25 10:44 Urine pH 8.0 (4.5-7.5) H 06/01/25 10:44 Ur Specific [place] 1.015 (1.000-1.030) 06/01/25 10:44 Urine Protein Negative (Negative) 06/01/25 10:44 Urine Glucose (UA) Negative (Negative) 06/01/25 10:44 Urine Ketones Negative (Negative) 06/01/25 10:44 Urine Blood Negative (Negative) 06/01/25 10:44 Urine Nitrite Negative (Negative) 06/01/25 10:44 Urine Bilirubin Negative (Negative) 06/01/25 10:44 Urine Urobilinogen Negative (Negative) 06/01/25 10:44 Ur Leukocyte Esterase 1+ (Negative) H 06/01/25 10:44 Urine WBC (Auto) 6-10 /hpf (0-5) H 06/01/25 10:44 Urine RBC (Auto) 0-2 /hpf (0-2) 06/01/25 10:44 U Hyaline Cast (Auto) 0-2 /lpf (0-2) 06/01/25 10:44 U Epithel Cells (Auto) 6-10 /hpf (0-2) H 06/01/25 10:44 Urine Bacteria (Auto) None Seen (None Seen) 06/01/25 10:44 Urine Comment 06/01/25 10:44 Impressions Abdomen/Pelvis CT 06/01/25 10:57 CT SCAN OF THE ABDOMEN AND PELVIS WITH IV CONTRAST CLINICAL HISTORY: Right flank pain. COMPARISON STUDY: CT of the abdomen and pelvis October 28, 2023. Renal ultrasound May 05, 2025. TECHNIQUE: Following the IV administration of 92 cc of Optiray 320, CT scan of the abdomen and pelvis is performed from the lung bases to the proximal femora. Images are reviewed in the axial, sagittal, and coronal planes. IV contrast was administered without complication. A dose lowering technique was utilized adhering to the principles of ALARA. CT DOSE: 1222.2 mGy.cm FINDINGS: Visualized portions of the lung bases are unremarkable. There is no pneumatosis, free air or portal venous gas. A 1 x 0.7 cm distal right ureteral calculus just below the level of the sacroiliac joint results in moderate right hydroureteronephrosis with delayed right nephrogram and trace perinephric and periureteral stranding/fluid. Numerous bilateral renal calculi are present. T hese include a 7 mm left lower pole calculus. There are no left ureteral calculi. There is no left hydronephrosis. Moderate left renal cortical thinning is noted with multifocal scarring. There is no evidence for a bowel obstruction. There is trace fluid within the pelvis. No lymphadenopathy. Major vasculature is patent. The appendix is normal. IMPRESSION: 1. 1 x 0.7 cm distal right ureteral calculus, just below the level of the sacroiliac joint, which results in moderate right hydroureteronephrosis. 2. Extensive bilateral nephrolithiasis. No left ureteral calculi. No left hydronephrosis. Left renal cortical thinning and scarring. ACT 112: Negative or not required by law. Electronically signed by: Meir France M.D. 06/01/2025 12:18 PM Code Status & VTE Plan Code Status Full code VTE Prophylaxis Plan VTE Prophylaxis will be ordered: Yes PG Care Time/CCT Total # of Minutes Spent Total Time Spent with Patient: Total time spent is greater than 50% in coordination of care (as documented) at patient's floor/unit and/or counseling patient: Coding Level of Care Code 97322 INT INP/OBS CARE 3/75MIN Diagnoses Right distal ureteral calculus N20.1 Hydroureteronephrosis N13.30 GERD (gastroesophageal reflux disease) K21.9 Generalized anxiety disorder F41.1
[2025-06-01] MEDS: LACTATED RINGER'S 1,000 ML IV SCH ×2 (13:28→15:18)
[2025-06-01] MEDS: HYDROmorphone INJ 0.5 MG/0.5 ML SYR IV STA (13:38)
--- NOTE | 2025-06-01 13:57 | Anesthesiology Consultation ---
Date of Service June 01, 2025 Assessment & Plan Chart Review Chart Review: Acceptable Risk for Surgery and Patient NOT seen in Pre Admission Testing Consults Requested none ASA ASA3 Proposed Anesthesia Anesthesia Type: General History Surgery Operation Date: 06/01/25 08:20 Proposed Procedures p Cystoscopy, Right Retrograde Pyelogram, Right Stent Placement - Mk Aguila MD Height/Weight Height: 5 ft 4.5 in Weight: 86.3 kg Allergies Allergy/AdvReac Type Severity Reaction Status Date / Time shrimp Allergy Severe Difficulty Verified 05/13/25 11:51 Breathing adhesive Allergy Intermediate Rash Verified 05/13/25 11:51 contact metal agent Allergy Intermediate May=Ronnie Verified 05/13/25 11:51 h latex Allergy Intermediate Rash Verified 05/13/25 11:51 gold Au 198 Allergy Mild Rash Verified 05/13/25 11:51 nickel Allergy Mild Rash Verified 05/13/25 11:51 prednisone AdvReac Severe Swelling Verified 05/13/25 11:51 of Lip/Tongue/Throat aspirin AdvReac Mild Nausea Verified 05/13/25 11:51 Medications Home Medications Medication Instructions Recorded Confirmed Last Taken blood sugar diagnostic (OneTouch #150 ea 04/15/23 05/13/25 Unknown Verio test strips) blood-glucose meter (OneTouch #1 ea 04/15/23 05/13/25 Unknown Verio Reflect Meter) azelastine 137 mcg (0.1 %) nasal 1 - 2 spray intranasal .1-2X DAILY 09/15/24 06/01/25 02/18/25 spray PRN Allergic Symptoms fluticasone propionate 50 1 spray intranasal BID PRN 09/15/24 06/01/25 02/18/25 mcg/actuation nasal allergies spray,suspension (Flonase Allergy Relief) cholestyramine 4 gram oral powder 4 g PO BID 03/19/25 06/01/25 Unknown for suspension in a packet (Prevalite) oxymetazoline 0.05 % nasal spray 2 spray intranasal Q12H PRN 03/19/25 06/01/25 03/19/25 04:00 (Afrin Sinus (oxymetazoline)) Allergic Symptoms Abdominal Binder #1 ea 03/23/25 05/13/25 Unknown lancets 33 gauge #150 ea 04/06/25 05/13/25 Unknown lancets 33 gauge (OneTouch Delica #100 ea 04/07/25 05/13/25 Unknown Plus Lancet) albuterol sulfate 90 mcg/actuation 2 inh inhalation QID PRN shortness 05/04/25 06/01/25 Unknown aerosol inhaler (Ventolin HFA) of breath or wheezing #8.5 grams pantoprazole 40 mg tablet,delayed 40 mg PO DAILY 30 days #30 tabs 05/11/25 06/01/25 Unknown release (Protonix) sertraline 50 mg tablet 50 mg PO DAILY #30 tabs 05/13/25 06/01/25 Unknown Allergy Medication 1 cap PO DAILY 06/01/25 06/01/25 Unknown cyclobenzaprine 5 mg tablet 5 - 10 mg PO TID PRN back pain 06/01/25 06/01/25 Unknown multivitamin 1 tab PO DAILY 06/01/25 06/01/25 Unknown Active Medications Generic Name Dose Route Start Last Admin Trade Name Freq PRN Reason Stop Dose Admin Lactated Ringer's 1,000 mls @ 80 mls/hr 06/01/25 13:15 06/01/25 13:28 Lr IV 06/02/25 14:14 80 mls/hr .[id number] CARMEN Administration Past Medical History Medical History Orthostatic dizziness Per cardio records Family history of adverse reaction to anesthesia Mother - significant PONV Father - decreased in BP (took Lisinopril per patient) Maternal grandmother- "turned green" post operatively- no other specifics- grandmother is still alive Menorrhagia Reason for procedure 03/19/25 "They said I had fluid on the ultrasound" as per patient Lupus (systemic lupus erythematosus) possibly - pcp had blood test completed, patient doesn't have results yet on lupus, doesn't think results will be until the end of 03/2025 - lyme was (-) as per patient History of postoperative nausea and vomiting History of syncope 2022 states was caused by pain Hyperlipidemia Medical non-compliance states stopped po meds (nortriptylline, lansoprazole) due to having "stomach pain"- advised to make ordering provider awares MIRYAM (generalized anxiety disorder) Palpitations sees dr. angel- no findings GERD (gastroesophageal reflux disease) Hx of migraines Hx of renal calculi (2022) Hx gestational diabetes Seasonal allergies Fibromyalgia Asthma prn inhaler use Depression Seizure disorder Remote hx of "stress seizures", previously on Zonisamide- discontinued, no recent issues, states after kidney stones resolved no longer had seizures or blood pressure issues Hypertension Exercise / Class Metabolic Activity II 4-5 Yardwork/Stairs/Walk up hill Past Family History Family History Father Kidney stones Hypertension Mother Hypertension Sister Hypertension Uncle Colorectal cancer Myocardial infarction Grandfather (Paternal) Prostate cancer Myocardial infarction Other No family history of adverse response to anesthesia Denies family history of Ovarian cancer Breast cancer Past Surgical History Surgical History History of tubal ligation S/P cystoscopy with ureteral stent placement (2022) History of esophagogastroduodenoscopy (EGD) Hx of colonoscopy Hx of sinus surgery x2 Hx of lithotripsy Hx of tooth extraction Hx of wisdom tooth extraction Previous section x 6, most recent 09/20/23 Past Anesthesia History No Hx of Anesthesia Complications and No Family Hx of Anesthesia Complications History of PONV No Hx of PONV and No Hx of Motion Sickness Social History Smoking Status: Current every day smoker tobacco type: cigarettes Smoking cigarettes per day: 1/2 Do You Dip or Chew Tobacco: No Hx Alcohol Use: No Hx Substance Use: No substance use type: does not use and former substance user Substance Use Type Other:: advised by nursing Last Used Substance Other:: clean since 2007 Physical Exam Vital Signs Last Vital Signs Temp 36.4 C L 06/01/25 11:00 Pulse 67 06/01/25 12:30 Resp 18 06/01/25 12:30 BP 122/62 06/01/25 12:30 Pulse Ox 97 06/01/25 12:30 O2 Del Method Room Air 06/01/25 12:30 Testing Laboratory Results 06/01/25 10:39 06/01/25 10:39 Urine Color Yellow 06/01/25 10:44 Urine Appearance Clear (Clear) 06/01/25 10:44 Urine pH 8.0 (4.5-7.5) H 06/01/25 10:44 Ur Specific [place] 1.015 (1.000-1.030) 06/01/25 10:44 Urine Protein Negative (Negative) 06/01/25 10:44 Urine Glucose (UA) Negative (Negative) 06/01/25 10:44 Urine Ketones Negative (Negative) 06/01/25 10:44 Urine Nitrite Negative (Negative) 06/01/25 10:44 Ur Leukocyte Esterase 1+ (Negative) H 06/01/25 10:44 Urine WBC (Auto) 6-10 /hpf (0-5) H 06/01/25 10:44 Urine RBC (Auto) 0-2 /hpf (0-2) 06/01/25 10:44 U Hyaline Cast (Auto) 0-2 /lpf (0-2) 06/01/25 10:44 U Epithel Cells (Auto) 6-10 /hpf (0-2) H 06/01/25 10:44 Urine Bacteria (Auto) None Seen (None Seen) 06/01/25 10:44 Electrocardiogram Date: 03/19/25 Findings: + NSR @ (@ 85) Echocardiogram Date: 09/19/22 EF: 60% LV Function: normal RWMA: + none Valvular Disease: + no significant valvular disease
--- NOTE | 2025-06-01 14:13 | Urology Consultation ---
Date of Consultation June 01, 2025 Assessment & Plan (1) Right distal ureteral calculus: (2) Hydroureteronephrosis: (3) Nephrolithiasis: Plan 40 yo female who presented with severe right flank pain and found to have a 1cm obstructing right ureteral stone. We discussed acute stone management with cystoscopy and stent placement. Ureteral stents were discussed as well as postoperative issues and pain management. She is aware second procedure will be needed for stone treatment. Risks and benefits were discussed. Expected clinical course reviewed. All questions were answered. Will plan to proceed to the OR today for cystoscopy, right retrograde pyelogram, right ureteral stent placement. Risks and benefits to be reviewed with patient by Dr. Aguila. Keep NPO. Will cover with Ancef preoperatively. Urology to follow. History of Present Illness History of Present Illness 40-year-old female with a longstanding history of nephrolithiasis who presented to the ED 06/01 with severe right flank pain, nausea, and chills. On arrival to the ED, she was afebrile and hemodynamically stable. Labs showing no leukocytosis and a normal renal function. Urinalysis with 1+ LE, 610 WBC, 610 epithelial cells, negative bacteria, negative nitrite. CT abdomen pelvis was obtained and notable for a 1 cm distal right ureteral stone with moderate right hydronephrosis as well as extensive bilateral nephrolithiasis, no left sided ureteral stone or hydronephrosis. She received IV fluids, Toradol, Zofran, morphine, Dilaudid in the ED. She is admitted to medicine service. Patient is known to the urology service, follows with Dr. Nick. Has a long history of kidney stones with prior intervention. Has previously followed with nephrology. Patient was seen at bedside today in the ED. She is awake and resting in bed on arrival. No acute distress. She rates her pain currently 2/10, has been managing with medication. Denies fever or chills at present. No recent nausea or vomiting. Reports she is voiding without issue. She did have coffee at 0830 this morning but otherwise no food. Allergies Allergy/AdvReac Type Severity Reaction Status Date / Time shrimp Allergy Severe Difficulty Verified 06/01/25 14:58 Breathing adhesive Allergy Intermediate Rash Verified 06/01/25 14:58 contact metal agent Allergy Intermediate Protem=Ronnie Verified 06/01/25 14:58 h latex Allergy Intermediate Rash Verified 06/01/25 14:58 gold Au 198 Allergy Mild Rash, hives Verified 06/01/25 14:58 nickel Allergy Mild Rash Verified 06/01/25 14:58 prednisone AdvReac Severe Swelling Verified 06/01/25 14:58 of Lip/Tongue/Throat aspirin AdvReac Mild Nausea Verified 06/01/25 14:58 Home Medications Medication Instructions Recorded Confirmed Type blood sugar diagnostic (OneTouch #150 ea 04/15/23 05/13/25 Rx Verio test strips) blood-glucose meter (OneTouch #1 ea 04/15/23 05/13/25 Rx Verio Reflect Meter) azelastine 137 mcg (0.1 %) nasal 1 - 2 spray intranasal .1-2X DAILY 09/15/24 06/01/25 History spray PRN Allergic Symptoms fluticasone propionate 50 1 spray intranasal BID PRN 09/15/24 06/01/25 History mcg/actuation nasal allergies spray,suspension (Flonase Allergy Relief) cholestyramine 4 gram oral powder 4 g PO BID 03/19/25 06/01/25 History for suspension in a packet (Prevalite) oxymetazoline 0.05 % nasal spray 2 spray intranasal Q12H PRN 03/19/25 06/01/25 History (Afrin Sinus (oxymetazoline)) Allergic Symptoms Abdominal Binder #1 ea 03/23/25 05/13/25 Rx lancets 33 gauge #150 ea 04/06/25 05/13/25 Rx lancets 33 gauge (OneTouch Delica #100 ea 04/07/25 05/13/25 Rx Plus Lancet) albuterol sulfate 90 mcg/actuation 2 inh inhalation QID PRN shortness 05/04/25 06/01/25 Rx aerosol inhaler (Ventolin HFA) of breath or wheezing #8.5 grams pantoprazole 40 mg tablet,delayed 40 mg PO DAILY 30 days #30 tabs 05/11/25 06/01/25 Rx release (Protonix) sertraline 50 mg tablet 50 mg PO DAILY #30 tabs 05/13/25 06/01/25 Rx Allergy Medication 1 cap PO DAILY 06/01/25 06/01/25 History cyclobenzaprine 5 mg tablet 5 - 10 mg PO TID PRN back pain 06/01/25 06/01/25 History multivitamin 1 tab PO DAILY 06/01/25 06/01/25 History Patient History Medical History Orthostatic dizziness Per cardio records Family history of adverse reaction to anesthesia Mother - significant PONV Father - decreased in BP (took Lisinopril per patient) Maternal grandmother- "turned green" post operatively- no other specifics- grandmother is still alive Menorrhagia Reason for procedure 03/19/25 "They said I had fluid on the ultrasound" as per patient Lupus (systemic lupus erythematosus) possibly - pcp had blood test completed, patient doesn't have results yet on lupus, doesn't think results will be until the end of 03/2025 - lyme was (-) as per patient History of postoperative nausea and vomiting History of syncope 2022 states was caused by pain Hyperlipidemia Medical non-compliance states stopped po meds (nortriptylline, lansoprazole) due to having "stomach pain"- advised to make ordering provider awares MIRYAM (generalized anxiety disorder) Palpitations sees dr. angel- no findings GERD (gastroesophageal reflux disease) Hx of migraines Hx of renal calculi (2022) Hx gestational diabetes Seasonal allergies Fibromyalgia Asthma prn inhaler use Depression Seizure disorder Remote hx of "stress seizures", previously on Zonisamide- discontinued, no recent issues, states after kidney stones resolved no longer had seizures or blood pressure issues Hypertension Surgical History History of tubal ligation S/P cystoscopy with ureteral stent placement (2022) History of esophagogastroduodenoscopy (EGD) Hx of colonoscopy Hx of sinus surgery x2 Hx of lithotripsy Hx of tooth extraction Hx of wisdom tooth extraction Previous section x 6, most recent 09/20/23 Family History Father Kidney stones Hypertension Mother Hypertension Sister Hypertension Uncle Colorectal cancer Myocardial infarction Grandfather (Paternal) Prostate cancer Myocardial infarction Other No family history of adverse response to anesthesia Denies family history of Ovarian cancer Breast cancer Social History Smoking Status: Current every day smoker Tobacco Type: Cigarettes Age Started Using Tobacco: 18; packs per day: 0.5; Cigarettes Per Day: 10; Second Hand Exposure: No; Do You Dip or Chew Tobacco: No; Tobacco Cessation Education Requested by Patient: No Hx Alcohol Use: No Hx Substance Use: No Preferred Language: Setswana Communication Ability: Effective Visual Impairment: No Limitations Hearing Ability: Normal Weed Cooking Operator Required: No Beliefs That Will Affect Care: None marital status: Single marital status details: Oumar [phone] Current Living Situation: Family Current Living Situation Comment: Lives with boyfrOumra whlaey current occupational status: employed 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 How many Children do You have: 6 Other Information That Helps Us Care for You: No Feels Safe at Home: Yes Safety Concerns: Feels Safe At This Time Childhood Exposure to Second-Hand Smoke: Yes Diet: regular Dental Care, Regularly: No Physical Activity Frequency: Daily Seatbelt Use: always Sunscreen Use: Yes Assistive Devices: None Review of Systems Review of Systems: All systems reviewed & are unremarkable except as noted in HPI & below Physical Exam Constitutional: no acute distress Respiratory: no respiratory distress and no labored breathing Neurologic: moves all extremities and awake Psychiatric: A+Ox3, euthymic affect Results & Data Vital Signs (Past 12 Hours) Vital Signs Temp Pulse Pulse Resp BP BP Pulse Ox 06/01/25 12:30 67 18 122/62 97 06/01/25 11:00 36.4 C L 82 20 141/99 H 95 06/01/25 10:58 67 06/01/25 10:43 36.4 C L 82 20 141/99 H 95 O2 Del Method 06/01/25 12:30 Room Air 06/01/25 11:00 Room Air 06/01/25 10:58 06/01/25 10:43 Room Air PG Care Time/CCT Total # of Minutes Spent Total Time Spent with Patient: Total time spent is greater than 50% in coordination of care (as documented) at patient's floor/unit and/or counseling patient: Coding Level of Care Code 37047 IN/OBS CONSULT LVL 4,60M Diagnoses Right distal ureteral calculus N20.1 Hydroureteronephrosis N13.30 Nephrolithiasis N20.0
[2025-06-01] MEDS ORDERED: LIDOCAINE 2% 2 ML VIAL/AMP(20MG/ML) INFIL ONE (15:00)
[2025-06-01] MEDS ORDERED: PROPOFOL IV EMULSION 10 MG/ML 20 ML VIAL IV ONE (15:00)
[2025-06-01] MEDS ORDERED: MIDAZOLAM HCL 1 MG/ML 2ML VIAL ONE (15:00)
[2025-06-01] MEDS ORDERED: ONDANSETRON INJ 2 MG/ML 2 ML VIAL IV PRN ×2 (15:41→17:07)
[2025-06-01] MEDS ORDERED: ATROPINE SULFATE 0.1 MG/ML 10ML SYR IV PRN (15:41)
[2025-06-01] MEDS ORDERED: HYDROmorphone INJ 1 MG/ML SYRINGE IV PRN (15:41)
[2025-06-01] MEDS ORDERED: ONDANSETRON INJ 2 MG/ML 2 ML VIAL ONE (16:07)
--- NOTE | 2025-06-01 16:32 | Operative Report ---
PG Post Operative Report Pre & Post Diagnosis Operation Date: 06/01/25 08:20 Pre: right ureteral stone and hydronephrosis Post: right ureteral stone and hydronephrosis I identified the patient and participated in the time-out.: Yes Procedure Operation Date: 06/01/25 08:20 Procedure: cystoscopy, right ureteral stent placement Surgeon Mk Aguila MD Commercial Photographer none Estimated Blood Loss 0 Findings Consistent with Post-Op Diagnosis Specimens none Description of Procedure The patient was identified in the preoperative holding area, appropriate informed consents were reviewed and completed and the patient was transferred to the operative suite. Upon arrival, appropriate antibiotics and anesthesia were administered and the patient was placed in dorsal lithotomy position and prepped and draped in sterile fashion. To begin the case I passed a 21 [place] cystoscope with 30 degree lens. Inspection revealed some contrast within the bladder but otherwise no abnor malities. The ureteral orifices were in orthotopic position. I performed a performed fluoroscopic evaluation of the right side and she still has retained contrast within a dilated and tortuous right collecting system and hydronephrotic kidney. I was able to position a wire into the ureter and advanced it above the level of the stone and through the twist. I then advanced a 5 [place]ian open-ended catheter with an attempt to straighten the tortuosity. This initially straighten but when I attempted to place a 6 [place]ian by 24 cm stent with tortuosity return and I felt the stent may have been too short. I then withdrew the stent and again straighten the ureter with gentle traction on a 5 [place] open-ended and wire placed into the upper pole of the kidney. This is seem to keep it straight and I placed a 6 [place] multilength stent with a good curl in the upper pole of the kidney and a good curl in the bladder. The ureter remained straight after placement and there was clear drainage through and around the stent. At that time we concluded the case and she was reversed of anesthesia and taken to the recovery room in stable condition. There were no complications. The plan will be to return for surgical intervention at some point in the futureher stone is quite visible on KUB and might be a good candidate for ESWL I attest to the content of the Intraoperative Record and any orders documented therein. Any exceptions are noted below.
[2025-06-01] MEDS ORDERED: GLUCOSE 10 TAB/TUBE PO PRN (17:07)
[2025-06-01] MEDS ORDERED: AZELASTINE HCL 0.1% NASAL 200 SPRAYS/27,400 MCG BTL NAE PRN (17:07)
[2025-06-01] MEDS ORDERED: ALBUT/IPRATROP 3MG/0.5MG NEB 3 ML VIAL NEB PRN (17:07)
[2025-06-01] MEDS ORDERED: FLUTICASONE PROPIONATE NA SPR 16 GM BTL NAE PRN (17:07)
[2025-06-01] MEDS ORDERED: ALBUTEROL HFA 8 GM INHALER INH PRN (17:07)
[2025-06-01] MEDS ORDERED: CARBOHYDRATES FOR HYPOGLYCEMIA PO PRN (17:07)
[2025-06-01] MEDS ORDERED: GLUCOSE 40% GEL 15 GM TUBE PO PRN (17:07)
[2025-06-01] MEDS ORDERED: DEXTROSE 50% 50 ML SYRINGE IV PRN (17:07)
[2025-06-01] MEDS ORDERED: GLUCAGON FOR INJ 1 MG VIAL SQ PRN (17:07)
[2025-06-01] MEDS ORDERED: ACETAMINOPHEN 1000 MG/100 ML IV IV PRN (17:07)
--- NOTE | 2025-06-01 17:15 | Anesthesiology Progress Note ---
Date of Service June 01, 2025 Anesthesia Post Procedure Vital Signs Vital Signs: Temp Pulse Pulse Resp BP BP Pulse Ox 06/01/25 16:50 81 16 116/75 93 06/01/25 16:40 36.5 C 76 12 107/72 97 06/01/25 16:32 36.1 C L 83 13 108/73 98 06/01/25 16:27 06/01/25 15:01 36.5 C 68 20 134/82 97 06/01/25 14:25 67 20 127/83 96 06/01/25 12:30 67 18 122/62 97 06/01/25 11:00 36.4 C L 82 20 141/99 H 95 06/01/25 10:58 67 06/01/25 10:43 36.4 C L 82 20 141/99 H 95 O2 Del Method O2 Flow Rate 06/01/25 16:50 Room Air 06/01/25 16:40 Oxymask 3 06/01/25 16:32 Oxymask 6 06/01/25 16:27 Room Air 06/01/25 15:01 Room Air 06/01/25 14:25 Room Air 06/01/25 12:30 Room Air 06/01/25 11:00 Room Air 06/01/25 10:58 06/01/25 10:43 Room Air Pain Intensity Right Flank: Pain Intensity: 2 Transfer of Care Handoff Completed per policy Notes Mental Status: alert / awake / arousable and participated in evaluation Patient Amnestic to Procedure: Yes Nausea / Vomiting: adequately controlled Pain: adequately controlled Airway Patency, RR, SpO2: stable & adequate BP & HR: stable & adequate Hydration State: stable & adequate Anesthetic Complications: no major complications apparent and Pt Satisfied with anesthetic care
[2025-06-01] MEDS: cefTRIAXone SODIUM 2,000 MG/50 ML BAG IV SCH (17:51)
[2025-06-01] MEDS: SERTRALINE HCL 50 MG TABLET PO SCH (17:51)
[2025-06-01] MEDS: MULTIVITAMIN TAB PO SCH (17:51)
[2025-06-01] MEDS: NICOTINE 14 MG/24 HR PATCH TD SCH (18:55)
[2025-06-01] MEDS: INSULIN ASPART PER UNIT CHARGE SC SCH (19:34)
[2025-06-01] MEDS: HYDROmorphone INJ 0.5 MG/0.5 ML SYR IV PRN (20:21)
--- NOTE | 2025-06-02 06:45 | Hospitalist Progress Note ---
Date of Service June 02, 2025 Assessment & Plan (1) Right distal ureteral calculus: (2) Hydroureteronephrosis: (3) Nephrolithiasis: Plan 40 yo female who presented with severe right flank pain and found to have a 1cm obstructing right ureteral stone. We discussed acute stone management with cystoscopy and stent placement. Ureteral stents were discussed as well as postoperative issues and pain management. She is aware second procedure will be needed for stone treatment. Risks and benefits were discussed. Expected clinical course reviewed. All questions were answered. Will plan to proceed to the OR today for cystoscopy, right retrograde pyelogram, right ureteral stent placement. Risks and benefits to be reviewed with patient by Dr. Aguila. Keep NPO. Will cover with Ancef preoperatively. Urology to follow. Admission and Anticipated Discharge Date Admission Date: June 01, 2025 Physical Exam Physical Exam: The patient is awake, alert and oriented 3, well developed and well nourished, normocephalic and atraumatic, lying in bed and in no acute distress. HEENT--PERRL, EOMI, mucous membranes and oropharynx mildly dry. Neck--supple. No JVD. No bruits. Thyroid normal, trachea midline, no adenopathy. Heart--normal S1 and S2. No murmurs, rubs or gallops. Lungs--clear bilaterally, no respiratory distress, no accessory muscle use. Abdomen--normal bowel sounds and soft. Nontender. Nondistended Extremities--no cyanosis or clubbing. No edema. There are good distal pulses b/l. Dermatologic--normal skin turgor, normal color, no abnormal lymph nodes, no rash. Neurologic--cranial nerves II through XII grossly intact. Rheumatologic--normal range of motion. Psychiatric--normal affect. Results & Data Results & Data Vital Signs (Past 12 Hours) Vital Signs Temp Pulse Resp BP Pulse Ox O2 Del Method 06/02/25 04:07 36.7 C 85 18 143/83 H 94 Room Air 06/01/25 23:47 36.5 C 82 18 123/75 94 Room Air 06/01/25 20:00 36.6 C 80 18 130/84 94 Room Air 06/01/25 19:00 36.5 C 87 20 112/72 92 Room Air
[2025-06-02 07:32] LABS: Hematocrit (blood only) 41.6 % (37.0-47.0); Hemoglobin 14.0 g/dl (12.0-16.0); Immature Granulocytes # (auto) 0.03 K/uL (0.01-0.20); Immature Granulocytes % (auto) 0.3 %; Mean Corpuscular Hemoglobin 30.4 pg (25.0-34.0); Mean Corpuscular Volume 90.4 fL (80.0-100.0); Platelet Count 220 K/uL (130-400); RDW Standard Deviation 46.0 fL (36.4-46.3); Red Blood Count 4.60 M/uL (4.20-5.40); White Blood Count 10.12 K/ul (4.8-10.8)
[2025-06-02 07:45] VITALS: RESP 18
[2025-06-02 07:45] LABS: Anion Gap 3.0 (3-11); Blood Urea Nitrogen 15.0 mg/dl (6-23); Calcium 8.2 mg/dl (8.6-10.3); Carbon Dioxide 27.0 mmol/L (21-32); Chloride 108.0 mmol/L (98-107); Creatinine Clr Calc Pharmacy 95.4 ml/min; Glucose 92.0 mg/dl (70-99(Fasting)); Magnesium 1.9 mg/dl (1.7-2.4); Potassium 4.3 mmol/L (3.5-5.1); Sodium 138.0 mmol/L (136-145)
--- NOTE | 2025-06-02 08:33 | Fluoroscopy Report ---
FL KUB CLINICAL HISTORY: RIGHT CYSTO STENT COMPARISON STUDY: None FLUOROSCOPY TIME: 20 seconds FLUOROSCOPY IMAGES: 4 EXPOSURE DOSE: 4 mGy FINDINGS: Fluoroscopy was provided for urologic procedure. IMPRESSION: Intraoperative fluoroscopy. ACT 112: Negative or not required by law. Electronically signed by: Lorenzo Zamarripa M.D. 06/02/2025 8:32 AM
[2025-06-02] MEDS: REMOVE NICODERM PATCH SCH (08:53)
[2025-06-02 09:23] LABS: Hemoglobin A1C 5.6 % (4.5-5.6)
[2025-06-02] MEDS: HYDROmorphone INJ 0.5 MG/0.5 ML SYR IV PRN (10:46)
[2025-06-02 11:04] VITALS: BP 124/82; PULSE 88; TEMP 98.1; O2SAT 93
[2025-06-02] MEDS: TAMSULOSIN HCL 0.4 MG CAP PO SCH (12:21)
--- NOTE | 2025-06-02 12:53 | Discharge Summary ---
Date of Service June 02, 2025 Admission HPI Per Admitting Provider The patient is a 40-year-old female with past medical history including hydroureteronephrosis, generalized anxiety disorder, seasonal allergy, GERD, hyperlipidemia, nephrolithiasis, history of sepsis, previous kidney stone requiring stent placement. The patient presents to the emergency department with symptoms that began last evening including nausea and right-sided abdominal and flank pain, that worsened during the day today. She presents today with the symptoms, similar to previous kidney stones. Admission Exam Per Admitting Provider The patient is awake, alert and oriented 3, well developed and well nourished, normocephalic and atraumatic, lying in bed and in no acute distress. HEENT--PERRL, EOMI, mucous membranes and oropharynx mildly dry. Neck--supple. No JVD. No bruits. Thyroid normal, trachea midline, no adenopathy. Heart--normal S1 and S2. No murmurs, rubs or gallops. Lungs--clear bilaterally, no respiratory distress, no accessory muscle use. Abdomen--normal bowel sounds and soft. Nontender. Nondistended Extremities--no cyanosis or clubbing. No edema. There are good distal pulses b/l. Dermatologic--normal skin turgor, normal color, no abnormal lymph nodes, no rash. Neurologic--cranial nerves II through XII grossly intact. Rheumatologic--normal range of motion. Psychiatric--normal affect. Principal Diagnosis R ureteral stone, s/p R ureteral stent placement Discharge Exam Gen: A&Ox3, no acute distress HEENT: EOM intact, moist oral mucus membranes CV: RRR, +s1/s2, no m/r/g Resp: clear to auscultation b/l, no w/r/R GI/Abd: +BS, abdomen nontender to palpation, nondistended MSK: tenderness to percussion of R CVA, no gross deformities, 5/5 strength throughout Neuro: no facial droop, no focal weakness, speech intact Discharge Data Allergies Allergy/AdvReac Type Severity Reaction Status Date / Time shrimp Allergy Severe Difficulty Verified 06/01/25 14:58 Breathing adhesive Allergy Intermediate Rash Verified 06/01/25 14:58 contact metal agent Allergy Intermediate May=Ronnie Verified 06/01/25 14:58 h latex Allergy Intermediate Rash Verified 06/01/25 14:58 gold Au 198 Allergy Mild Rash, hives Verified 06/01/25 14:58 nickel Allergy Mild Rash Verified 06/01/25 14:58 prednisone AdvReac Severe Swelling Verified 06/01/25 14:58 of Lip/Tongue/Throat aspirin AdvReac Mild Nausea Verified 06/01/25 14:58 Consultations 06/01/25 12:36 ED Decision to Admit Stat Procedures Performed Operation Date: 06/01/25 08:20 Actual Procedures p Cystoscopy, Right Retrograde Pyelogram, Right Stent Placement(Right) - Mk Aguila MD Ordered Studies 06/01/25 FL KUB Routine 06/01/25 10:57 CT abd pelvis IV con only Stat Hospital Course (1) Right distal ureteral calculus: (2) Hydroureteronephrosis: (3) Nephrolithiasis: Plan Jazzy is a 40-year-old female with past medical history of b/l nephrolithiasis, hydroureteronephrosis, generalized anxiety disorder, seasonal allergy, GERD, hyperlipidemia, prior sepsis, and previous kidney stone requiring stent placement. Presented to ED with R-sided flank/abdomen and back pain, admitted for obstructing kidney stone in R distal ureter. Underwent ureteral stent placement 06/01/25, procedure was successful as pt is having only minimal pain compared to day prior. Based on her clinical improvement and medical stability, we feel comfortable with her discharge home today with close followup with urology, nephrology, and PCP. #R distal ureteral calculus #R hydronephrosis S/p R ureteral stent placement, feeling significantly less pain today and urinating without pain, only noting pinkish color of urine. Follow urine culture and sensitives, however ceftriaxone has been discontinued due to low likelihood of UTI at this time Will continue Flomax 0.4mg qAM to promote stone passage Prescribed pyridium up to 3x daily as needed to help reduce urinary tract pain Additionally added oxybutynin 5mg BID for 2 weeks to help reduce urinary frequency May take Oxycodone 5mg every 6hrs (as needed) has been prescribed to help with pain Urology following, appreciate recs- pt to follow up with urology on 07/09/[address] Friedman battery repairer on 06/10/25 for chronic kidney stone management #Recurrent calcium oxalate and calcium apatite kidney stones Given the following recommendations: - Most importantly maintain high fluid intake: aim for at least 2.5-3 liters per day for sufficient urine output Diet: - Limit sodium/salt intake to no more than 2-3g daily, as high sodium increase urinary calcium excretion, which increases kidney stone risk; limit animal protein and oxalate-rich foods like spinach, rhubarb, nuts, chocolate, and beets - Increase intake of fruits, most veggies, and plant-based proteins as these help to inhibit stone formation. Particularly focus on citrus fruits like zeina and oranges, as their citrate helps to inhibit stone formation. Additionally, calcium intake from dietary sources such as low-fat dairy or other calcium-rich foods are recommended as this helps to bind dietary oxalate in the GI tract, thus reducing oxalate uptake by the kidneys. Anxiety- Continue sertraline 50 mg daily GERD- Continue Protonix 40 mg daily - GI followup as scheduled Asthma/allergy- Continue albuterol HFA, azelastine, fluticasone Prediabetes- Not on medications in the outpatient setting Total Time Total Time Spent Total Time Spent (In Minutes): 40 Discharge Plan Discharge Items Patient Disposition: Home - Self-Care Reason For Visit: DISTAL R URETERAL STONE, MOD R HYDRO Discharge Diagnosis: R hydronephrosis 2/2 R distal ureteral obstruction by kidney stone; b/l nephrolithiasis Condition on Discharge: Good Activity: Per Instructions section Non-emergency contact: Primary Care Provider and Urologist Call non-emergency contact if: your symptoms worsen and your pain is not controlled Follow-up/Referrals: Eloise De León PA-C [Physician Rn Neonatal Icu] - 06/15/25 9:30 am Constantino Friedman DO [Physician] - 06/10/25 3:00 pm Reji Najera DO [Primary Care Provider] - 06/07/25 9:20 am Carrie Carrillo PA-C [Physician Rn Neonatal Icu] - 07/09/25 10:30 am Diet: Regular and Other - See Diet Comment Diet Comment: see instructions for further diet recommendations Addtl Attending Provider Instructions: You were treated for an obstructing kidney stone in your distal R ureter. You underwent successful R ureteral stent placement with urology yesterday , and continue to be stable for discharge home today with scheduled followup and recommendations as described below: #R distal ureteral calculus #R hydronephrosis Underwent R ureteral stent placement 06/01/25, feeling significantly less pain today and urinating without pain, only noting pinkish color of urine. Ceftriaxone has been discontinued due to low likelihood of UTI at this time Continue Flomax (tamsulosin) 0.4mg qAM to promote stone passage Prescribed pyridium up to 3x daily as needed to help reduce urinary tract pain Additionally added oxybutynin 5mg BID for 2 weeks to help reduce urinary frequency May take Oxycodone 5mg every 6hrs (as needed) has been prescribed to help with pain Followup with urology as an outpatient on 07/09/25 at 10:30am Followup Dr. Friedman, your battery repairer, for chronic kidney stone management on 06/10/25 at 3pm Followup with your PCP Dr. Najera on 06/07/25 at 9:20am #Recurrent calcium oxalate and calcium apatite kidney stones Most importantly maintain high fluid intake: aim for at least 2.5-3 liters per day for sufficient urine output Diet: - Limit sodium/salt intake to no more than 2-3g daily, as high sodium increase urinary calcium excretion, which increases kidney stone risk; limit animal protein and oxalate-rich foods like spinach, rhubarb, nuts, chocolate, and beets - Increase intake of fruits, most veggies, and plant-based proteins as these help to inhibit stone formation. Particularly focus on citrus fruits like zeina and oranges, as their citrate helps to inhibit stone formation. Additionally, calcium intake from dietary sources such as low-fat dairy or other calcium-rich foods are recommended as this helps to bind dietary oxalate in the GI tract, thus reducing oxalate uptake by the kidneys. GERD- Continue Protonix 40 mg daily - GI followup as scheduled Anxiety- Continue sertraline 50 mg daily Asthma/allergy- Continue albuterol HFA, azelastine, fluticasone DuoNebs every 2 hours as needed Prediabetes- Not on medications in the outpatient setting Pending Studies at Discharge: No Stand-Alone Forms: My [employer], Smoking Cessation Medications and DC Order Prescriptions: New oxycodone 5 mg tablet 5 mg PO Q6H PRN (Reason: pain, moderate) Qty: 10 0RF tamsulosin 0.4 mg Capsule 0.4 mg PO QAM 30 Days Qty: 30 2RF nicotine 7 mg/24 hr Patch 24 Hour 1 patch transdermal Q24H 30 Days Qty: 30 0RF oxybutynin chloride 5 mg tablet 5 mg PO BID Qty: 28 0RF phenazopyridine [Pyridium] 100 mg tablet 100 mg PO TID PRN (Reason: pain) Qty: 30 0RF Continued (DME) Abdominal Binder to be determined See Rx Instructions .Route .MEDSUPPLY Qty: 1 0RF Rx Instructions: As directed albuterol sulfate [Ventolin HFA] 90 mcg/actuation HFA aerosol inhaler 2 inh INH QID PRN (Reason: shortness of breath or wheezing) Qty: 8.5 0RF pantoprazole [Protonix] 40 mg tablet,delayed release (DR/EC) 40 mg PO DAILY 30 Days Qty: 30 11RF Rx Instructions: 30 mins before breakfast on an empty stomach (DME) OneTouch Verio test strips Strip See Rx Instructions .MEDSUPPLY Qty: 150 5RF Rx Instructions: check blood sugars 4 times a day (DME) blood-glucose meter [OneTouch Verio Reflect Meter] Mis See Rx Instructions miscellaneous .MEDSUPPLY Qty: 1 0RF Rx Instructions: As directed fluticasone propionate [Flonase Allergy Relief] 50 mcg/actuation spray,suspension 1 spray intranasal BID PRN (Reason: allergies) Rx Instructions: administer into each nostril azelastine 137 mcg (0.1 %) spray,non-aerosol 1 - 2 spray intranasal .1-2X DAILY PRN (Reason: Allergic Symptoms) Rx Instructions: USE 1-2 SPRAYS EACH NOSTRIL 1-2 TIMES DAILY.; administer into each nostril PRN; (DME) lancets 33 gauge misc See Rx Instructions .MEDSUPPLY Qty: 150 5RF Rx Instructions: As directed check blood sugars 4 times a day (DME) lancets [OneTouch Delica Plus Lancet] 33 gauge misc See Rx Instructions .Route Qty: 100 5RF Rx Instructions: use daily As directed 4 times daily DX:E11.9 sertraline 50 mg tablet 50 mg PO DAILY Qty: 30 2RF Rx Instructions: take 1/2 tablet by mouth for 6 days, then take 1 tablet by mouth daily oxymetazoline [Afrin Sinus (oxymetazoline)] 0.05 % [place],Non-Aerosol 2 spray INTRANASAL Q12H PRN (Reason: Allergic Symptoms) Prevalite 4 gram powder in packet 4 g PO BID Rx Instructions: administer w/meal; avoid other meds within 1hr before or 4-6hr after dose Allergy Medication 1 cap PO DAILY Patient Comments: OTC unknown dose/type multivitamin Tablet 1 tab PO DAILY cyclobenzaprine 5 mg tablet 5 - 10 mg PO TID PRN (Reason: back pain) Rx Instructions: 1-2 tab PO TID PRN for pain Discharge Orders: Discharge Order (Routine); Ordered 06/02/25 Ordered By: Jerod Tracey/Other Patient Handouts: Kidney Stone (Urine) Admission Data Admit Date/Time: 06/01/25 13:04 Attending Provider: Dorcas Abreu Admit Provider: Carlton Hamilton Primary Care Provider: Reji Najera Other Providers: Carlton Hamilton Other Interventions: Discharge Summary Assessment (RN) Last Done: 06/02/25 14:32 Supervising Physician Co-Signing Physician Notes I personally examined the patient and verified all marte points of history and exam, discussed case, and agree with decision making with Dr. Velez with the following additions/exceptions: S-patient reports feeling much better, some mild right flank pain and pink- tinged urine. No nausea or vomiting is tolerating p.o. No fevers or chills. O- Vitals Reviewed Gen: [AAOx3, NAD] HEENT: [anicteric sclerae, EOMI] CV: [RRR no mgr nl S1S2] Pulm: [CTAB no wcr] Abd: [+BS soft NT ND no masses or hernias] Ext: [no edema] Skin: [no rashes, warm/dry] Neuro: [full strength throughout, has intermittent tremor in upper body and head neck which is chronic] CBC, BMP reviewed A/P: 40-year-old female here with right sided ureterolithiasis with hydronephrosis and 1 cm stone requiring ureteral stent placement. UA contaminated with epithelial cells but no other evidence of infection i.e. no fever or leukocytosis. Received 1 dose of ceftriaxone but does not need further antibiotics. - Stable for discharge to home and close follow-up with urology for stone and stent management - Give tamsulosin daily, oxybutynin as needed, oxycodone for moderate to severe pain, Tylenol for milder pain - Needs follow-up with nephrology for ongoing management of significant history of kidney stones-mostly calcium oxalate-encouraged daily lemonade use and low oxalate diet - Counseled on smoking cessation but she declines to quit at this time - Counseled to return if has fevers or chills or worsening pain I spent 35 minutes in the care of this patient at the time of discharge to include lab review, [id number] time with the patient, coordination with case management for discharge planning Resident Activity Tracking Resident Involvement: Resident Care Provided Care Provided: Adult Hospital Medicine
--- NOTE | 2025-06-02 12:58 | Urology Progress Note ---
Date of Service June 02, 2025 Assessment & Plan (1) Ureteral stone: (2) Hydronephrosis: (3) Acute right flank pain: Plan POD #1 s/p cystoscopy and right ureteral stent placement Tolerating the stent with minimal bother She is afebrile and hemodynamically stable Labs today show no leukocytosis and normal renal function Okay to d/c from perspective when medically stable Recommend Tamsulosin, prn Pyridium and prn pain medication for stent management Will arrange outpatient follow-up with our service Urology will sign off. Please call with any further questions or concerns. Admission and Anticipated Discharge Date Admission Date: June 01, 2025 Subjective Pt seen at bedside today. Awake and resting in bed on arrival. No acute distress. Reports some improvement in flank pain. She does have some stent discomfort. No fevers. Review of Systems Constitutional: as per Subjective / HPI Genitourinary: as per Subjective / HPI Physical Exam Constitutional: no acute distress Respiratory: no respiratory distress and no labored breathing Skin: No visible rashes or lesions to exposed skin areas Neurologic: moves all extremities and awake Psychiatric: A+Ox3, euthymic affect Results & Data Vital Signs (Past 12 Hours) Vital Signs Temp Pulse Pulse Resp BP Pulse Ox O2 Del Method 06/02/25 11:00 36.7 C 88 18 124/82 93 Room Air 06/02/25 07:43 36.8 C 98 H 18 133/87 92 Room Air 06/02/25 06:59 37.0 C 97 H 16 121/77 94 Room Air 06/02/25 04:07 36.7 C 85 18 143/83 H 94 Room Air PG Care Time/CCT Total # of Minutes Spent Total Time Spent with Patient: Total time spent is greater than 50% in coordination of care (as documented) at patient's floor/unit and/or counseling patient: Coding Level of Care Code 41007 SUB INP/OBS CARE 2/35MIN Diagnoses Ureteral stone N20.1 Hydronephrosis N13.2 Hydronephrosis type: with renal calculous obstruction Acute right flank pain R10.9 (2) Hydronephrosis Hydronephrosis type: with renal calculous obstruction Qualified Code(s): N13.2 - Hydronephrosis with renal and ureteral calculous obstruction
[2025-06-02] MEDS: ACETAMINOPHEN 500 MG TAB PO PRN (13:21)
--- NOTE | 2025-06-02 14:50 | Billing Data ---
Date of Service June 02, 2025 Coding Level of Care Code 78722 INP/OBS DISCH >30 MIN
== END 2025-06-02 15:26 | disposition home or self-care (01) | DRG 661 ==
LOC: ED 10:30 → 3N 13:04 → INTOOBSV 13:04 → SUATTDRO 13:04 → 3N 16:27

== ENCOUNTER 2025-07-06 13:45 | Inpatient (IN) ==
--- NOTE | 2025-07-06 14:13 | Emergency Department Note ---
Impression & Plan Right flank pain, Ureteral colic, Leukocytosis, Failure of outpatient treatment ED Provider Note NAME: TERRY DIAMOND AGE: 40 SEX: F : 1985 ARRIVES VIA: Ambulance INFORMANT: [Patient] ED PROVIDER(S): [Jamel Taylor MD] CHIEF COMPLAINT: Right flank pain HISTORY OF PRESENT ILLNESS: Patient is a 40-year-old female who has a right ureteral stone. She has a stent on the right that has been in place now for over a month. She recently finished antibiotics, she finished these about 2 days ago. She is using Tylenol for pain. She is also taking Flomax. The patient has an appointment set for stone extraction on July 22. She states that she cannot wait this long. She states the pain in the last week and a half has been unbearable. Her urine has been pink in color. No vomiting, no fever. Patient is failing outpatient management for her ureteral stone. PMHx/PSHx/Social Hx: See Below PHYSICAL EXAM: GENERAL: Patient is in no acute distress. HEENT: No acute trauma, normocephalic atraumatic, mucous membranes moist, no nasal congestion. NECK: No stridor, no adenopathy, no meningismus, trachea is midline. LUNGS: Clear to auscultation bilaterally, no wheeze, no rhonchi, breath sounds equal. HEART: Without murmurs gallops or rubs, regular rate and rhythm. ABDOMEN: Soft, nontender, no peritonitis. EXTREMITIES: No cyanosis, full range of motion of all the joints without pain or difficulty. NEUROLOGIC: Oriented x 3, no acute motor or sensory deficits, no focal weakness. SKIN: No jaundice, no diaphoresis. Back: Right flank discomfort to percussion. DIFFERENTIAL DIAGNOSIS: Failed outpatient management, UTI, hydronephrosis, electrolyte imbalance, dehydration, among others. EMERGENCY DEPARTMENT PROCEDURES: MEDICAL DECISION MAKING: There is a mild leukocytosis which could be consistent with infection or just her stress and pain. There was a normal hemoglobin and platelet count. No bandemia. No renal failure or significant electrolyte abnormality. No concerning liver enzyme elevation. No evidence for pancreatitis. testing was negative. Urinalysis does suggest infection versus contamination from her ureteral stent. KUB shows the right ureteral stent to be in proper position. On exam, the patient was not febrile or toxic. She was uncomfortable with percussion of the right flank. The patient was given IV saline, IV Zofran, IV morphine, IV Toradol and eventually, IV ceftriaxone. Patient presents with uncontrolled right flank pain. She has a known ureteral stone with a ureteral stent in place. Despite what has been prescribed outpatient, she is failing outpatient management. I did speak with urology. The patient can be hospitalized on the medical service and urology will consult. No need for emergent urologic intervention today. I spoke with the patient and case management, the on-call hospitalist was consulted. Prior/Outside records/notes reviewed: Outpatient neurology note from 06/10/2025 describing her findings, her options and the plan outpatient. Imaging/x-ray results per my interpretation: KUB shows the right ureteral stent to be in proper position. Chronic Medical/Social conditions affecting care: None Care/Management discussed with: Urology-Dr. Szymanski's service. Case management and the on-call hospitalist. Level of care consideration(s): After review of the information above and other included data: --I believe the patient requires escalation of care to admission DISPOSITION: Admission Past Med/Surg History Problem List (Updated 07/06/25 @ 15:47 by Jamel Taylor MD) Failure of outpatient treatment (Acute) Leukocytosis (Acute) Ureteral colic (Acute) Right flank pain (Acute) Hydronephrosis of right kidney Multiple allergies Ureteral stone (Acute) Diarrhea Abdominal pain Change in bowel habits Menorrhagia Tachycardia Left flank pain (Acute) HPV in female Food allergy Generalized anxiety disorder Seasonal allergies GERD (gastroesophageal reflux disease) Hyperlipidemia Nephrolithiasis (Chronic) Medical History History of vitamin D deficiency Hydronephrosis Acute right flank pain Renal colic Right distal ureteral calculus Hx of sepsis (2022) admit at [facility] / kidney stones Hydroureteronephrosis Orthostatic dizziness Per cardio records Family history of adverse reaction to anesthesia Mother - significant PONV Father - decreased in BP (took Lisinopril per patient) Maternal grandmother- "turned green" post operatively- no other specifics- grandmother is still alive Menorrhagia Reason for procedure 03/19/25 "They said I had fluid on the ultrasound" as per patient Lupus (systemic lupus erythematosus) possibly - pcp had blood test completed, patient doesn't have results yet on lupus, doesn't think results will be until the end of 03/2025 - lyme was (-) as per patient History of postoperative nausea and vomiting History of syncope 2022 states was caused by pain Hyperlipidemia Medical non-compliance states stopped po meds (nortriptylline, lansoprazole) due to having "stomach pain"- advised to make ordering provider awares MIRYAM (generalized anxiety disorder) Palpitations sees dr. angel- no findings GERD (gastroesophageal reflux disease) Hx of migraines Hx of renal calculi (2022) Hx gestational diabetes Seasonal allergies Fibromyalgia Asthma prn inhaler use Depression Seizure disorder Remote hx of "stress seizures", previously on Zonisamide- discontinued, no recent issues, states after kidney stones resolved no longer had seizures or blood pressure issues Hypertension Surgical History History of tubal ligation S/P cystoscopy with ureteral stent placement (2022) History of esophagogastroduodenoscopy (EGD) Hx of colonoscopy Hx of sinus surgery Hx of lithotripsy Hx of tooth extraction Hx of wisdom tooth extraction Previous section Family History Father Kidney stones Hypertension Mother Hypertension Sister Hypertension Uncle Colorectal cancer Myocardial infarction Grandfather (Paternal) Prostate cancer Myocardial infarction Other No family history of adverse response to anesthesia Denies family history of Ovarian cancer Breast cancer Social History Smoking Status: Current every day smoker Tobacco Type: Cigarettes Age Started Using Tobacco: 18; packs per day: 0.5; Cigarettes Per Day: 10; Second Hand Exposure: No; Do You Dip or Chew Tobacco: No; Hx Alcohol Use: No Hx Substance Use: No Preferred Language: Turkmen Communication Ability: Effective Visual Impairment: No Limitations Hearing Ability: Normal Wood Bucker Required: No Beliefs That Will Affect Care: None marital status: Single marital status details: Oumar [phone] Current Living Situation: Family Current Living Situation Comment: Lives with boyfrOumar whaley current occupational status: employed 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 How many Children do You have: 6 Feels Safe at Home: Yes Childhood Exposure to Second-Hand Smoke: Yes Diet: regular Dental Care, Regularly: No Physical Activity Frequency: Daily Seatbelt Use: always Sunscreen Use: Yes Assistive Devices: None Allergies Allergies Allergy/AdvReac Type Severity Reaction Status Date / Time shrimp Allergy Severe Difficulty Verified 06/21/25 13:23 Breathing adhesive Allergy Intermediate Rash Verified 06/21/25 13:23 contact metal agent Allergy Intermediate Russell=Ronnie Verified 06/21/25 13:23 h latex Allergy Intermediate Rash Verified 06/21/25 13:23 gold Au 198 Allergy Mild Rash, hives Verified 06/21/25 13:23 nickel Allergy Mild Rash Verified 06/21/25 13:23 prednisone AdvReac Severe Swelling Verified 06/21/25 13:23 of Lip/Tongue/Throat aspirin AdvReac Mild Nausea Verified 06/21/25 13:23 Home Meds Home Medications Medication Instructions Recorded Confirmed cholestyramine 4 gram oral powder 4 g PO BID 03/19/25 07/06/25 for suspension in a packet (Prevalite) oxymetazoline 0.05 % nasal spray 2 spray intranasal Q12H PRN 03/19/25 07/06/25 (Afrin Sinus (oxymetazoline)) Allergic Symptoms Allergy Medication 1 cap PO DAILY 06/01/25 07/06/25 cholecalciferol (vitamin D3) 125 125 mcg PO DAILY 06/15/25 07/06/25 mcg (5,000 unit) capsule azelastine 137 mcg (0.1 %) nasal 1 - 2 spray intranasal .1-2 TIMES 07/06/25 07/06/25 spray A DAY Allergic Symptoms pantoprazole 40 mg tablet,delayed 40 mg PO DAILYBB 07/06/25 07/06/25 release (Protonix) Previous Rx's Medication Instructions Recorded blood sugar diagnostic (K[place]u [place]Touch #150 ea 04/15/23 Verio test strips) blood-glucose meter (K[place]u [place]Touch #1 ea 04/15/23 Verio Reflect Meter) Abdominal Binder #1 ea 03/23/25 lancets 33 gauge (OneTouch Delica #100 ea 04/07/25 Plus Lancet) albuterol sulfate 90 mcg/actuation 2 inh inhalation QID PRN shortness 05/04/25 aerosol inhaler (Ventolin HFA) of breath or wheezing #8.5 grams phenazopyridine 100 mg tablet 100 mg PO TID PRN pain 6 doses #30 06/02/25 (Pyridium) tabs fluticasone propionate 50 1 spray intranasal BID allergies 06/03/25 mcg/actuation nasal #16 grams spray,suspension (Flonase Allergy Relief) epinephrine 0.3 mg/0.3 mL 0.3 mg (0.3 mL) IM ONCE PRN 06/09/25 injection, auto-injector (EpiPen anaphylaxis #2 ea 2-Medardo) famotidine 40 mg tablet 40 mg PO DAILY #30 tabs 06/15/25 sertraline 100 mg tablet 100 mg PO DAILY #90 tabs 06/21/25 Results & Data (ED) Vital Signs Vital Signs - 24 hr 07/06/25 13:53 Temperature 36.4 C L Temperature Source Oral Pulse Rate 89 Respiratory Rate 14 Blood Pressure 119/84 Blood Pressure Mean 95 Pulse Oximetry 94 Oxygen Delivery Method Room Air Sepsis New/Unexplained Change in Mental Status No Sepsis Action Taken by Nursing No Action Required Home Medications Current Medication List: was personally reviewed by me Laboratory Data Attestation: I reviewed the patient's lab results. 07/06/25 14:25 07/06/25 14:25 Lab Results 07/06/25 Range/Units 14:25 WBC 11.97 H (4.8-10.8) K/ul RBC 5.04 (4.20-5.40) M/uL Hgb 15.0 (12.0-16.0) g/dl Hct 45.3 (37.0-47.0) % MCV 89.9 (80.0-100.0) fL MCH 29.8 (25.0-34.0) pg MCHC 33.1 (32.0-36.0) g/dL RDW Std Deviation 46.5 H (36.4-46.3) fL RDW Coeff of Kalpesh 14.3 (11.5-14.5) % Plt Count 240 (130-400) K/uL MPV 10.6 (9.4-12.4) fL Immature Gran % (Auto) 0.3 % Neut % (Auto) 70.6 % Lymph % (Auto) 18.4 % Miner % (Auto) 7.1 % Eos % (Auto) 2.8 % Baso % (Auto) 0.8 % Neut # (Auto) 8.46 H (1.40-6.50) K/uL Lymph # (Auto) 2.20 (1.20-3.40) K/uL Miner # (Auto) 0.85 H (0.11-0.59) K/uL Eos # (Auto) 0.33 (0.00-0.50) K/uL Baso # (Auto) 0.10 (0.00-0.20) K/uL Immature Gran # (Auto) 0.03 (0.01-0.20) K/uL Sodium 141 (136-145) mmol/L Potassium 4.2 (3.5-5.1) mmol/L Chloride 107 (98-107) mmol/L Carbon Dioxide 27 (21-32) mmol/L Anion Gap 7 (3-11) BUN 17 (6-23) mg/dl Creatinine 1.00 (0.6-1.2) mg/dl Est Cr Clr Drug Dosing 78.8 ml/min eGFR 73.95 BUN/Creatinine Ratio 17.0 (10-20) Glucose 87 (70-99(Fasting)) mg/dl Calcium 9.1 (8.6-10.3) mg/dl Magnesium 1.8 (1.7-2.4) mg/dl Total Bilirubin 0.3 (0.2-1.0) mg/dl AST 15 (13-39) U/L ALT 15 (7-52) U/L Alkaline Phosphatase 86 (34-104) U/L Total Protein 6.6 (6.0-8.3) gm/dl Albumin 3.9 (3.4-5.0) gm/dl Globulin 2.7 (2.5-4.0) gm/dl Albumin/Globulin Ratio 1.4 (0.9-2) Lipase 43 (11-82) U/L HCG, Qual Negative (Negative) Urine Color [place] Urine Appearance Cloudy A (Clear) Urine pH 7.0 (4.5-7.5) Ur Specific [place] 1.016 (1.000-1.030) Urine Protein 3+ H (Negative) Urine Glucose (UA) Negative (Negative) Urine Ketones Negative (Negative) Urine Blood 3+ H (Negative) Urine Nitrite Negative (Negative) Urine Bilirubin Negative (Negative) Urine Urobilinogen Negative (Negative) Ur Leukocyte Esterase 2+ H (Negative) Urine WBC (Auto) >50 H (0-5) /hpf Urine RBC (Auto) >20 H (0-2) /hpf U Hyaline Cast (Auto) 0-2 (0-2) /lpf U Epithel Cells (Auto) 6-10 H (0-2) /hpf Urine Bacteria (Auto) None Seen (None Seen) Urine Comment Administered Medications Discontinued Medications Sodium Chloride (Nss) 1,000 mls @ 999 mls/hr IV .Q1H1M STA Stop: 07/06/25 15:08 Last Infusion: 07/06/25 15:37 Dose: Infused Documented By: Admin: 07/06/25 14:37 Dose: 999 mls/hr Documented By: VENU Ketorolac Tromethamine (Ketorolac Tromethamine 15 Mg/Ml Vial) 10 mg IV NOW ONE Stop: 07/06/25 14:11 Last Admin: 07/06/25 14:39 Dose: 10 mg Documented By: VENU Morphine Sulfate (Morphine Sulfate 4 Mg/Ml 1 Ml Carp\\Vial) 4 mg IV NOW STA Stop: 07/06/25 14:09 Last Admin: 07/06/25 14:40 Dose: 4 mg Documented By: VENU Ondansetron HCl (Ondansetron Inj 2 Mg/Ml 2 Ml Vial) 4 mg IV NOW STA Stop: 07/06/25 14:09 Last Admin: 07/06/25 14:37 Dose: 4 mg Documented By: VENU Imaging Data Radiologist's Impression: KUB X-Ray 07/06/25 14:08 KUB HISTORY: stent placement COMPARISON STUDY: 02/04/2025 FINDINGS: Interval right ureteral stent appears grossly well positioned. There are a few small renal calculi, largest on the left measuring approximately 4 mm. There are stable low pelvic phleboliths. There is moderate retained stool. No bowel obstruction seen. IMPRESSION: No acute findings. ACT 112: Negative or not required by law. The above report was generated using voice recognition software. It may contain grammatical, syntax or spelling errors. Electronically signed by: Lorenzo Zamarripa M.D. 07/06/2025 3:25 PM Discharge Plan Visit Data Chief Complaint: Flank Pain Stated Complaint: HEMATURIA ED Provider: Jamel Taylor Discharge Problem: Right flank pain, Ureteral colic, Leukocytosis, Failure of outpatient treatment Patient Disposition: Admitted As Inpatient Condition: Fair Forms Stand Alone Forms: My [facility] Prescriptions Prescriptions: No Action (DME) Abdominal Binder to be determined See Rx Instructions .Route .MEDSUPPLY Qty: 1 0RF Rx Instructions: As directed albuterol sulfate [Ventolin HFA] 90 mcg/actuation HFA aerosol inhaler 2 inh INH QID PRN (Reason: shortness of breath or wheezing) Qty: 8.5 0RF fluticasone propionate [Flonase Allergy Relief] 50 mcg/actuation spray,suspension 1 spray intranasal BID Qty: 16 5RF Rx Instructions: administer into each nostril epinephrine [EpiPen 2-Medardo] 0.3 mg/0.3 mL auto-injector 0.3 mg IM ONCE PRN (Reason: anaphylaxis) Qty: 2 1RF Rx Instructions: Go to emergency department after use. (DME) OneTouch Verio test strips Strip See Rx Instructions .MEDSUPPLY Qty: 150 5RF Rx Instructions: check blood sugars 4 times a day (DME) blood-glucose meter [OneTouch Verio Reflect Meter] Misc See Rx Instructions miscellaneous .MEDSUPPLY Qty: 1 0RF Rx Instructions: As directed (DME) lancets [OneTouch Delica Plus Lancet] 33 gauge misc See Rx Instructions .Route Qty: 100 5RF Rx Instructions: use daily As directed 4 times daily DX:E11.9 cholecalciferol (vitamin D3) 125 mcg (5,000 unit) capsule 125 mcg PO DAILY famotidine 40 mg tablet 40 mg PO DAILY Qty: 30 11RF sertraline 100 mg tablet 100 mg PO DAILY Qty: 90 2RF Rx Instructions: Take 1 tablet by mouth daily pantoprazole [Protonix] 40 mg tablet,delayed release (DR/EC) 40 mg PO DAILYBB Rx Instructions: 30 mins before breakfast on an empty stomach azelastine 137 mcg (0.1 %) spray,non-aerosol 1 - 2 spray intranasal .1-2 TIMES A DAY Rx Instructions: USE 1-2 SPRAYS EACH NOSTRIL 1-2 TIMES DAILY; administer into each nostril; oxymetazoline [Afrin Sinus (oxymetazoline)] 0.05 % [place],Non-Aerosol 2 spray INTRANASAL Q12H PRN (Reason: Allergic Symptoms) Prevalite 4 gram powder in packet 4 g PO BID Rx Instructions: administer w/meal; avoid other meds within 1hr before or 4-6hr after dose Allergy Medication 1 cap PO DAILY Patient Comments: OTC unknown dose/type phenazopyridine [Pyridium] 100 mg tablet 100 mg PO TID PRN (Reason: pain) Qty: 30 0RF Referrals Referrals: Reji Najera DO [Primary Care Provider] - Discharge Problem: Leukocytosis Qualifiers: Leukocytosis type: unspecified Qualified Code(s): D72.829 - Elevated white blood cell count, unspecified
[2025-07-06] MEDS: ONDANSETRON INJ 2 MG/ML 2 ML VIAL IV STA (14:37)
[2025-07-06] MEDS: SODIUM CHLORIDE 0.9% 1,000 ML IV STA (14:37)
[2025-07-06] MEDS: KETOROLAC TROMETHAMINE 15 MG/ML VIAL IV ONE (14:39)
[2025-07-06] MEDS: MoRPHine SULFATE 4 MG/ML 1 ML CARP\\VIAL IV STA (14:40)
[2025-07-06 14:48] LABS: Hematocrit (blood only) 45.3 % (37.0-47.0); Hemoglobin 15.0 g/dl (12.0-16.0); Immature Granulocytes # (auto) 0.03 K/uL (0.01-0.20); Immature Granulocytes % (auto) 0.3 %; Mean Corpuscular Hemoglobin 29.8 pg (25.0-34.0); Mean Corpuscular Volume 89.9 fL (80.0-100.0); Platelet Count 240 K/uL (130-400); RDW Standard Deviation 46.5 fL (36.4-46.3); Red Blood Count 5.04 M/uL (4.20-5.40); White Blood Count 11.97 K/ul (4.8-10.8)
[2025-07-06 14:52] LABS: Appearance Urine Cloudy (Clear); Bacteria Urine Automated None Seen (None Seen); Cast Urine Automated 0-2 /lpf (0-2); Glucose Urine UA Negative (Negative); RBC Urine Automated >20 /hpf (0-2); WBC Urine Automated >50 /hpf (0-5)
[2025-07-06 15:07] LABS: Alanine Aminotransferase 15.0 U/L (7-52); Albumin Globulin Ratio 1.4 (0.9-2); Albumin Level 3.9 gm/dl (3.4-5.0); Alkaline Phosphatase 86.0 U/L (34-104); Anion Gap 7.0 (3-11); Bilirubin,Total 0.3 mg/dl (0.2-1.0); Blood Urea Nitrogen 17.0 mg/dl (6-23); Calcium 9.1 mg/dl (8.6-10.3); Carbon Dioxide 27.0 mmol/L (21-32); Chloride 107.0 mmol/L (98-107); Creatinine Clr Calc Pharmacy 78.8 ml/min; Globulin 2.7 gm/dl (2.5-4.0); Glucose 87.0 mg/dl (70-99(Fasting)); Lipase 43.0 U/L (11-82); Magnesium 1.8 mg/dl (1.7-2.4); Potassium 4.2 mmol/L (3.5-5.1); Sodium 141.0 mmol/L (136-145); Total Protein 6.6 gm/dl (6.0-8.3)
[2025-07-06 15:13] LABS: Pregnancy Test, Serum Negative (Negative)
--- NOTE | 2025-07-06 15:27 | XRay Report ---
KUB HISTORY: stent placement COMPARISON STUDY: 02/04/2025 FINDINGS: Interval right ureteral stent appears grossly well positioned. There are a few small renal calculi, largest on the left measuring approximately 4 mm. There are stable low pelvic phleboliths. T here is moderate retained stool. No bowel obstruction seen. IMPRESSION: No acute findings. ACT 112: Negative or not required by law. The above report was generated using voice recognition software. It may contain grammatical, syntax o r spelling errors. Electronically signed by: Lorenzo Zamarripa M.D. 07/06/2025 3:25 PM
[2025-07-06] MEDS: cefTRIAXone SODIUM 2,000 MG/50 ML BAG IV STA (15:43)
[2025-07-06] MEDS: MoRPHine SULFATE 4 MG/ML 1 ML CARP\\VIAL IV PRN (15:45)
--- NOTE | 2025-07-06 15:49 | History & Physical Report ---
Date of Service July 06, 2025 Assessment & Plan (1) Right flank pain: (2) UTI (urinary tract infection): (3) Hematuria: Plan This patient is a 40-year-old female who presented on 07/06 for acute right flank pain. She has a known right kidney stone with (approximately 1 cm); underwent stent placement with Dr. Aguila on 06/01 with planned follow-up for stone extraction. #Intractable right flank pain Leukocytosis at 11.97 on arrival; afebrile; vitals otherwise stable; not septic KUB on arrival revealed right ureteral stent in place/well-positioned Patient was originally scheduled for stone extraction on July 22, but has been unable to tolerate the pain at home Coming in for IV pain control Urology consult appreciated While no planned urologic intervention at this time, but will make patient n.p.o. at midnight just in case IVF with Plasma-Lyte at 80 mL an hour x 1 IV pain control with acetaminophen, Toradol, and Dilaudid as needed IV antiemetics with Zofran as needed #UTI Clinically, patient endorses ongoing dysuria and burning with urination Failure of outpatient antibiotics (cefdinir course on 06/13 and doxycycline course on 06/24) Mild leukocytosis at 11.97 on arrival Afebrile, but in the setting of consistent Tylenol use at home Ceftriaxone 2000 mg IV q24h Most recent urine culture on 06/11 grew Staphylococcus epidermis (resistant to Bactrim; sensitive to oxacillin) Follow current urine culture #Hematuria 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 uMltani is a 40-year-old female with PMH of HLD, GERD, anxiety, HPV, kidney stones, and right sided hydronephrosis. Patient recently had a urinary stent placed on 06/[address] Aguila. Since that time, she has had intermittent right sided flank pain, recurrent episodes of burning with urination, and episodes of hematuria. Patient reports that her right flank pain was a 10 out of 10 prior to coming to the hospital, but is currently a 1 out of 10 after receiving IV pain medication in the emergency department. She characterizes it as a "gripping" pain with radiation from her low back along the flank down towards her groin. She was taking Tylenol 500 mg tablets (5 to 6 tablets/day) to help alleviate the pain, but this stopped working after a while. She is unsure if she has had fevers at home in the setting of frequent Tylenol use. She also reports she tried a CBD gummy 1 night, to help with the pain, but this only temporarily alleviated her pain. Patient has recently completed courses of cefdinir (prescribed on 06/13), and doxycycline (prescribed on 06/24) for an ongoing/lingering UTI. She does endorse burning with urination at this time, as well as hematuria x 2 weeks. Patient took her regular morning medication today. Besides her antibiotics, there have been no recent change in her medications. No missed doses. She does manage her medicine at home. Patient is a current everyday tobacco cigarette smoker; 1 PPD. She denies any recent alcohol use. She had 1 episode of bowel incontinence yesterday, but reports this is not new for her in the setting of loose stool (has happened a couple times over the past 5 years). Patient does report she had a fall down a flight of steps on May 08, but reports having imaging of her spine in May; she denies any injuries to her abdomen, pelvis, or back since that time. Patient's vitals are stable at time of admission. ED course: NSS 1000 mL IV Morphine sulfate 4 mg IV Zofran 4 mg IV Toradol 10 mg IV Ceftriaxone 2000 mg IV ROS: Patient endorses headache, lightheadedness, dizziness, right LBP with radiation to the abdomen, burning with urination, hematuria, and dysuria. Patient denies fever, chills, night-sweats, nausea, vomiting, saddle anesthesia, blood in stool, or melena. Allergies Allergy/AdvReac Type Severity Reaction Status Date / Time shrimp Allergy Severe Difficulty Verified 06/21/25 13:23 Breathing adhesive Allergy Intermediate Rash Verified 06/21/25 13:23 contact metal agent Allergy Intermediate May=Ronnie Verified 06/21/25 13:23 h latex Allergy Intermediate Rash Verified 06/21/25 13:23 gold Au 198 Allergy Mild Rash, hives Verified 06/21/25 13:23 nickel Allergy Mild Rash Verified 06/21/25 13:23 prednisone AdvReac Severe Swelling Verified 06/21/25 13:23 of Lip/Tongue/Throat aspirin AdvReac Mild Nausea Verified 06/21/25 13:23 Home Medications Medication Instructions Recorded Confirmed Type blood sugar diagnostic (iWelcomeTouch #150 ea 04/15/23 07/06/25 Rx Verio test strips) blood-glucose meter (OneTouch #1 ea 04/15/23 07/06/25 Rx Verio Reflect Meter) cholestyramine 4 gram oral powder 4 g PO BID 03/19/25 07/06/25 History for suspension in a packet (Prevalite) oxymetazoline 0.05 % nasal spray 2 spray intranasal Q12H PRN 03/19/25 07/06/25 History (Afrin Sinus (oxymetazoline)) Allergic Symptoms Abdominal Binder #1 ea 03/23/25 07/06/25 Rx lancets 33 gauge (OneTouch Delica #100 ea 04/07/25 07/06/25 Rx Plus Lancet) albuterol sulfate 90 mcg/actuation 2 inh inhalation QID PRN shortness 05/04/25 07/06/25 Rx aerosol inhaler (Ventolin HFA) of breath or wheezing #8.5 grams Allergy Medication 1 cap PO DAILY 06/01/25 07/06/25 History phenazopyridine 100 mg tablet 100 mg PO TID PRN pain 6 doses #30 06/02/25 07/06/25 Rx (Pyridium) tabs fluticasone propionate 50 1 spray intranasal BID allergies 06/03/25 07/06/25 Rx mcg/actuation nasal #16 grams spray,suspension (Flonase Allergy Relief) epinephrine 0.3 mg/0.3 mL 0.3 mg (0.3 mL) IM ONCE PRN 06/09/25 07/06/25 Rx injection, auto-injector (EpiPen anaphylaxis #2 ea 2-Medardo) cholecalciferol (vitamin D3) 125 125 mcg PO DAILY 06/15/25 07/06/25 History mcg (5,000 unit) capsule famotidine 40 mg tablet 40 mg PO DAILY #30 tabs 06/15/25 07/06/25 Rx sertraline 100 mg tablet 100 mg PO DAILY #90 tabs 06/21/25 07/06/25 Rx azelastine 137 mcg (0.1 %) nasal 1 - 2 spray intranasal .1-2 TIMES 07/06/25 07/06/25 History spray A DAY Allergic Symptoms pantoprazole 40 mg tablet,delayed 40 mg PO DAILYBB 07/06/25 07/06/25 History release (Protonix) Past Med/Surg History Problem List (Updated 07/06/25 @ 16:53 by Martín Menon PA-C) Hematuria UTI (urinary tract infection) Failure of outpatient treatment (Acute) Leukocytosis (Acute) Ureteral colic (Acute) Right flank pain (Acute) Hydronephrosis of right kidney Multiple allergies Ureteral stone (Acute) Diarrhea Abdominal pain Change in bowel habits Menorrhagia Tachycardia Left flank pain (Acute) HPV in female Food allergy Generalized anxiety disorder Seasonal allergies GERD (gastroesophageal reflux disease) Hyperlipidemia Nephrolithiasis (Chronic) Medical History History of vitamin D deficiency Hydronephrosis Acute right flank pain Renal colic Right distal ureteral calculus Hx of sepsis (2022) admit at [facility] / kidney stones Hydroureteronephrosis Orthostatic dizziness Per cardio records Family history of adverse reaction to anesthesia Mother - significant PONV Father - decreased in BP (took Lisinopril per patient) Maternal grandmother- "turned green" post operatively- no other specifics- grandmother is still alive Menorrhagia Reason for procedure 03/19/25 "They said I had fluid on the ultrasound" as per patient Lupus (systemic lupus erythematosus) possibly - pcp had blood test completed, patient doesn't have results yet on lupus, doesn't think results will be until the end of 03/2025 - lyme was (-) as per patient History of postoperative nausea and vomiting History of syncope 2022 states was caused by pain Hyperlipidemia Medical non-compliance states stopped po meds (nortriptylline, lansoprazole) due to having "stomach pain"- advised to make ordering provider awares MIRYAM (generalized anxiety disorder) Palpitations sees dr. angel- no findings GERD (gastroesophageal reflux disease) Hx of migraines Hx of renal calculi (2022) Hx gestational diabetes Seasonal allergies Fibromyalgia Asthma prn inhaler use Depression Seizure disorder Remote hx of "stress seizures", previously on Zonisamide- discontinued, no recent issues, states after kidney stones resolved no longer had seizures or blood pressure issues Hypertension Surgical History History of tubal ligation S/P cystoscopy with ureteral stent placement (2022) History of esophagogastroduodenoscopy (EGD) Hx of colonoscopy Hx of sinus surgery Hx of lithotripsy Hx of tooth extraction Hx of wisdom tooth extraction Previous section Family History Father Kidney stones Hypertension Mother Hypertension Sister Hypertension Uncle Colorectal cancer Myocardial infarction Grandfather (Paternal) Prostate cancer Myocardial infarction Other No family history of adverse response to anesthesia Denies family history of Ovarian cancer Breast cancer Social History Smoking Status: Current every day smoker Tobacco Type: Cigarettes Age Started Using Tobacco: 18; packs per day: 0.5; Cigarettes Per Day: 10; Second Hand Exposure: No; Do You Dip or Chew Tobacco: No; Hx Alcohol Use: No Hx Substance Use: No Preferred Language: Anguill[place] Communication Ability: Effective Visual Impairment: No Limitations Hearing Ability: Normal Real Estate Representative Required: No Beliefs That Will Affect Care: None marital status: Single marital status details: Oumar [phone] Current Living Situation: Family Current Living Situation Comment: Lives with annefrOumar whaley current occupational status: employed 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 How many Children do You have: 6 Feels Safe at Home: Yes Childhood Exposure to Second-Hand Smoke: Yes Diet: regular Dental Care, Regularly: No Physical Activity Frequency: Daily Seatbelt Use: always Sunscreen Use: Yes Assistive Devices: None Review of Systems Review of Systems: See HPI above Physical Exam Physical Exam: General: no acute distress; fatigue; non-toxic appearing; well-nourished; cooperative; SpO2 94% on RA HEENT: normocephalic, atraumatic; no scleral icterus; PERRLA; vision and hearing grossly intact Neck: supple; no lymphadenopathy; trachea midline Skin: warm, dry without signs of tenting; no cyanosis; no rashes, bruising, lesions, or erythema noted CV: chest wall NTP; RRR; S1/S2 normal; no murmurs/rubs/gallops; pulses intact and symmetric at radial, DP, and PT Lungs: no acute respiratory distress; symmetrical chest wall expansion; clear breath sounds across all lung cuevas w/o adventitious sounds; no wheezing ABD: Soft, TTP in the right flank and lower quadrant; BS present; no rebound/guarding; no distention; no rashes or bruising appreciated in the abdomen or flanks bilaterally Back: Positive CVA tenderness on the right side MSK: no tics or fasciculations; no edema noted in the LEs b/l, nonerythematous; patient demonstrates good to wiggle toes, plantarflex, and dorsiflex bilaterally against resistance Neuro: A&Ox3; normal mood and affect; fluent speech; no focal deficits; patient reports sensation is intact and symmetric in lower extremities bilaterally assessed via light touch Results & Data Results & Data Vital Signs (Past 12 Hours) Vital Signs Temp Pulse Resp BP Pulse Ox O2 Del Method 07/06/25 13:53 36.4 C L 89 14 119/84 94 Room Air Laboratory Results Abnormal lab results 07/06/25 Range/Units 14:25 WBC 11.97 H (4.8-10.8) K/ul RDW Std Deviation 46.5 H (36.4-46.3) fL Neut # (Auto) 8.46 H (1.40-6.50) K/uL [place] # (Auto) 0.85 H (0.11-0.59) K/uL Urine Appearance Cloudy A (Clear) Urine Protein 3+ H (Negative) Urine Blood 3+ H (Negative) Ur Leukocyte Esterase 2+ H (Negative) Urine WBC (Auto) >50 H (0-5) /hpf Urine RBC (Auto) >20 H (0-2) /hpf U Epithel Cells (Auto) 6-10 H (0-2) /hpf Diagnostic Findings KUB X-Ray 07/06/25 14:08 KUB HISTORY: stent placement COMPARISON STUDY: 02/04/2025 FINDINGS: Interval right ureteral stent appears grossly well positioned. There are a few small renal calculi, largest on the left measuring approximately 4 mm. There are stable low pelvic phleboliths. There is moderate retained stool. No bowel obstruction seen. IMPRESSION: No acute findings. ACT 112: Negative or not required by law. The above report was generated using voice recognition software. It may contain grammatical, syntax or spelling errors. Electronically signed by: Lorenzo Zamarripa M.D. 07/06/2025 3:25 PM Code Status & VTE Plan Code Status Full code VTE Prophylaxis Plan VTE Prophylaxis will be ordered: Yes PG Care Time/CCT Total # of Minutes Spent Total Time Spent with Patient: Total time spent is greater than 50% in coordination of care (as documented) at patient's floor/unit and/or counseling patient: Coding [place] [address] INT INP/OBS CARE 3/75MIN Patient Type Established History Comprehensive Exam Comprehensive Medical Decision Making High Complexity Diagnoses Right flank pain R10.9 UTI (urinary tract infection) N39.0 Hematuria R31.9
[2025-07-06] MEDS ORDERED: CARBOHYDRATES FOR HYPOGLYCEMIA PO PRN (21:52)
[2025-07-06] MEDS ORDERED: ACETAMINOPHEN 1,000 MG/100 ML VIAL IV PRN (21:52)
[2025-07-06] MEDS ORDERED: PHENAZOPYRIDINE HCL 100 MG TAB PO PRN (21:52)
[2025-07-06] MEDS ORDERED: GLUCAGON FOR INJ 1 MG VIAL SQ PRN (21:52)
[2025-07-06] MEDS ORDERED: DEXTROSE 50% 50 ML SYRINGE IV PRN (21:52)
[2025-07-06] MEDS ORDERED: GLUCOSE 10 TAB/TUBE PO PRN (21:52)
[2025-07-06] MEDS ORDERED: ONDANSETRON INJ 2 MG/ML 2 ML VIAL IV PRN (21:52)
[2025-07-06] MEDS ORDERED: GLUCOSE 40% GEL 15 GM TUBE PO PRN (21:52)
[2025-07-06] MEDS ORDERED: ALBUTEROL HFA 8 GM INHALER INH PRN (21:52)
[2025-07-06] MEDS ORDERED: MELATONIN 3 MG TAB PO PRN (21:52)
[2025-07-06] MEDS: AZELASTINE HCL 0.1% NASAL 200 SPRAYS/27,400 MCG BTL SCH (22:21)
[2025-07-06] MEDS: PLASMA-LYTE A 1,000 ML IV SCH (22:21)
[2025-07-06] MEDS: OXYMETAZOLINE 0.05% 30 ML BTL PRN (22:21)
[2025-07-06] MEDS: FLUTICASONE PROPIONATE NA SPR 16 GM BTL SCH (22:22)
[2025-07-07] MEDS: KETOROLAC TROMETHAMINE 15 MG/ML VIAL IV PRN (00:44)
[2025-07-07] MEDS: diphenhydrAMINE 50 MG/ML VIAL IV STA (01:26)
[2025-07-07 07:30] LABS: Hematocrit (blood only) 37.0 % (37.0-47.0); Hemoglobin 12.6 g/dl (12.0-16.0); Immature Granulocytes # (auto) 0.02 K/uL (0.01-0.20); Immature Granulocytes % (auto) 0.3 %; Mean Corpuscular Hemoglobin 30.6 pg (25.0-34.0); Mean Corpuscular Volume 89.8 fL (80.0-100.0); Platelet Count 203 K/uL (130-400); RDW Standard Deviation 46.4 fL (36.4-46.3); Red Blood Count 4.12 M/uL (4.20-5.40); White Blood Count 7.87 K/ul (4.8-10.8)
[2025-07-07] MEDS: SERTRALINE HCL 100 MG TABLET PO SCH (07:41)
[2025-07-07] MEDS: FAMOTIDINE 40 MG TABLET PO SCH (07:41)
[2025-07-07 07:47] LABS: Anion Gap 5.0 (3-11); Blood Urea Nitrogen 19.0 mg/dl (6-23); Calcium 7.8 mg/dl (8.6-10.3); Carbon Dioxide 24.0 mmol/L (21-32); Chloride 109.0 mmol/L (98-107); Creatinine Clr Calc Pharmacy 90.7 ml/min; Glucose 92.0 mg/dl (70-99(Fasting)); Potassium 4.3 mmol/L (3.5-5.1); Sodium 138.0 mmol/L (136-145)
[2025-07-07] MEDS ORDERED: [UNRECOGNIZED DRUG - REMARK] PO SCH (09:00)
--- NOTE | 2025-07-07 09:15 | Urology Consultation ---
Date of Consultation July 07, 2025 Assessment & Plan (1) Right flank pain: (2) Ureteral stone: 40-year-old female with history of an obstructing right ureteral stone status post right ureteral stent in May admitted for intractable right flank pain. Patient afebrile and hemodynamically stable Labs today reviewedcreatinine 0.88, WBC 7.87, hemoglobin 12.6 Urinalysis with blood, leukocytes and pyuria; negative for bacteria Urine culture pending Continue broad-spectrum antibiotics and narrow per sensitivity data when available KUB independently reviewed and shows right ureteral stent in appropriate position Patient is poorly tolerating right ureteral stent She is scheduled for her stone surgery on 07/22 Recommend addition of tamsulosin, Pyridium and oxybutynin for stent management No plan for surgical intervention todaypatient can have diet Recommend make n.p.o. at midnight to reassess for stone treatment tomorrow pending urine culture Urology will follow, please contact our service with any additional questions or concerns History of Present Illness Reason for Consultation: Intractable R flank pain Attending Physician: Dk De La O MD History of Present Illness This is a 40-year-old female who follows with urology for history of bilateral nephrolithiasis. She is status post cystoscopy and right ureteral stent placement on 06/01/2025 for an obstructing 1 cm right ureteral stone. Patient was seen in urology office for follow-up and was scheduled for right ureteroscopy with laser lithotripsy and stone extraction in July per her request. She presented to the emergency department on 07/06/2025 for intractable right flank pain. On arrival to ED, she was afebrile and hemodynamically stable. Labs showed WBC 11.97, hemoglobin 15.0, creatinine 1.0. Urinalysis showed 3+ blood, 2+ LE, >50 WBC, >20 RBC, 6-10 epithelial cells and negative for bacteria. KUB showed right ureteral stent in appropriate position. She was treated with IV fluids, ketorolac, morphine and ondansetron in the emergency department. She was admitted to the hospital medicine service for intractable right flank pain. Urology is consulted for intractable right flank pain. Patient seen and examined at bedside. She is awake and resting in bed. Reports right flank pain has improved since arrival. Voiding spontaneously. Notes some dysuria and intermittent hematuria. Reports subjective feelings of warmth/chills at home, but did not monitor temperature. No nausea or vomiting at present. She is currently NPO. Allergies Allergy/AdvReac Type Severity Reaction Status Date / Time shrimp Allergy Severe Difficulty Verified 06/21/25 13:23 Breathing adhesive Allergy Intermediate Rash Verified 06/21/25 13:23 contact metal agent Allergy Intermediate Dellroy=Ronnie Verified 06/21/25 13:23 h latex Allergy Intermediate Rash Verified 06/21/25 13:23 gold Au 198 Allergy Mild Rash, hives Verified 06/21/25 13:23 nickel Allergy Mild Rash Verified 06/21/25 13:23 prednisone AdvReac Severe Swelling Verified 06/21/25 13:23 of Lip/Tongue/Throat aspirin AdvReac Mild Nausea Verified 06/21/25 13:23 Home Medications Medication Instructions Recorded Confirmed Type blood sugar diagnostic (NAVXTouch #150 ea 04/15/23 07/06/25 Rx Verio test strips) blood-glucose meter (NAVXTouch #1 ea 04/15/23 07/06/25 Rx Verio Reflect Meter) cholestyramine 4 gram oral powder 4 g PO BID 03/19/25 07/06/25 History for suspension in a packet (Prevalite) oxymetazoline 0.05 % nasal spray 2 spray intranasal Q12H PRN 03/19/25 07/06/25 History (Afrin Sinus (oxymetazoline)) Allergic Symptoms Abdominal Binder #1 ea 03/23/25 07/06/25 Rx lancets 33 gauge (OneTouch Delica #100 ea 04/07/25 07/06/25 Rx Plus Lancet) albuterol sulfate 90 mcg/actuation 2 inh inhalation QID PRN shortness 05/04/25 07/06/25 Rx aerosol inhaler (Ventolin HFA) of breath or wheezing #8.5 grams Allergy Medication 1 cap PO DAILY 06/01/25 07/06/25 History phenazopyridine 100 mg tablet 100 mg PO TID PRN pain 6 doses #30 06/02/25 07/06/25 Rx (Pyridium) tabs fluticasone propionate 50 1 spray intranasal BID allergies 06/03/25 07/06/25 Rx mcg/actuation nasal #16 grams spray,suspension (Flonase Allergy Relief) epinephrine 0.3 mg/0.3 mL 0.3 mg (0.3 mL) IM ONCE PRN 06/09/25 07/06/25 Rx injection, auto-injector (EpiPen anaphylaxis #2 ea 2-Medardo) cholecalciferol (vitamin D3) 125 125 mcg PO DAILY 06/15/25 07/06/25 History mcg (5,000 unit) capsule famotidine 40 mg tablet 40 mg PO DAILY #30 tabs 06/15/25 07/06/25 Rx sertraline 100 mg tablet 100 mg PO DAILY #90 tabs 06/21/25 07/06/25 Rx azelastine 137 mcg (0.1 %) nasal 1 - 2 spray intranasal .1-2 TIMES 07/06/25 07/06/25 History spray A DAY Allergic Symptoms pantoprazole 40 mg tablet,delayed 40 mg PO DAILYBB 07/06/25 07/06/25 History release (Protonix) Patient History Medical History History of vitamin D deficiency Hydronephrosis Acute right flank pain Renal colic Right distal ureteral calculus Hx of sepsis (2022) admit at [facility] / kidney stones Hydroureteronephrosis Orthostatic dizziness Per cardio records Family history of adverse reaction to anesthesia Mother - significant PONV Father - decreased in BP (took Lisinopril per patient) Maternal grandmother- "turned green" post operatively- no other specifics- grandmother is still alive Menorrhagia Reason for procedure 03/19/25 "They said I had fluid on the ultrasound" as per patient Lupus (systemic lupus erythematosus) possibly - pcp had blood test completed, patient doesn't have results yet on lupus, doesn't think results will be until the end of 03/2025 - lyme was (-) as per patient History of postoperative nausea and vomiting History of syncope 2022 states was caused by pain Hyperlipidemia Medical non-compliance states stopped po meds (nortriptylline, lansoprazole) due to having "stomach pain"- advised to make ordering provider awares MIRYAM (generalized anxiety disorder) Palpitations sees dr. angel- no findings GERD (gastroesophageal reflux disease) Hx of migraines Hx of renal calculi (2022) Hx gestational diabetes Seasonal allergies Fibromyalgia Asthma prn inhaler use Depression Seizure disorder Remote hx of "stress seizures", previously on Zonisamide- discontinued, no recent issues, states after kidney stones resolved no longer had seizures or blood pressure issues Hypertension Surgical History History of tubal ligation S/P cystoscopy with ureteral stent placement (2022) History of esophagogastroduodenoscopy (EGD) Hx of colonoscopy Hx of sinus surgery x2 Hx of lithotripsy Hx of tooth extraction Hx of wisdom tooth extraction Previous section x 6, most recent 09/20/23 Family History Father Kidney stones Hypertension Mother Hypertension Sister Hypertension Uncle Colorectal cancer Myocardial infarction Grandfather (Paternal) Prostate cancer Myocardial infarction Other No family history of adverse response to anesthesia Denies family history of Ovarian cancer Breast cancer Social History Smoking Status: Current every day smoker Tobacco Type: Cigarettes Age Started Using Tobacco: 18; packs per day: 0.5; Cigarettes Per Day: 1 pack per day; Second Hand Exposure: No; Do You Dip or Chew Tobacco: No; Hx Alcohol Use: No Hx Substance Use: No Preferred Language: Paraguayan Communication Ability: Effective Visual Impairment: No Limitations Hearing Ability: Normal Electric Distribution Engineer Required: No Beliefs That Will Affect Care: None marital status: Single marital status details: Oumar [phone] Current Living Situation: Significant Other and Other Current Living Situation Comment: lives with fiances aunt and uncle current occupational status: employed 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 How many Children do You have: 6 Feels Safe at Home: Yes Childhood Exposure to Second-Hand Smoke: Yes Diet: regular Dental Care, Regularly: No Physical Activity Frequency: Daily Seatbelt Use: always Sunscreen Use: Yes Assistive Devices: None Review of Systems Review of Systems: All systems reviewed & are unremarkable except as noted in HPI & below Physical Exam Constitutional: no acute distress Respiratory: normal respiratory effort; no respiratory distress and no labored breathing Gastrointestinal (Abdomen): Inspection/Auscultation: abdomen normal to inspection Musculoskeletal: Head/Neck/Chest: normocephalic Neurologic: moves all extremities and awake Psychiatric: Orientation: alert and oriented x 3 Results & Data Vital Signs (Past 12 Hours) Vital Signs Temp Pulse Pulse Resp BP BP Pulse Ox 07/06/25 21:58 36.6 C 79 16 138/74 95 07/06/25 21:52 07/06/25 21:25 81 16 113/75 95 Pulse Ox O2 Del Method O2 Del Method 07/06/25 21:58 Room Air 07/06/25 21:52 95 Room Air 07/06/25 21:25 Room Air PG Care Time/CCT Total # of Minutes Spent Total Time Spent with Patient: Total time spent is greater than 50% in coordination of care (as documented) at patient's floor/unit and/or counseling patient: Coding Level of Care Code 23753 IN/OBS CONSULT LVL 4,60M Diagnoses Right flank pain R10.9 Ureteral stone N20.1
--- NOTE | 2025-07-07 11:45 | Hospitalist Progress Note ---
Date of Service July 07, 2025 Assessment & Plan (1) Right flank pain: (2) UTI (urinary tract infection): (3) Hematuria: (4) Nephrolithiasis: Plan This patient is a 40-year-old female who presented on 07/06 for acute right flank pain. She has a known right kidney stone with (approximately 1 cm); underwent stent placement with Dr. Aguila on 06/01 with planned follow-up for stone extraction. #Intractable right flank pain | nephrolithiasis CBC WNL on 07/07; afebrile; VSS KUB on arrival revealed right ureteral stent in place/well-positioned Patient was originally scheduled for stone extraction on July 22, but has been unable to tolerate the pain at home She reports that her pain has been well-controlled with IV pain medication in the hospital Urology consult appreciated Recommend addition of tamsulosin, Pyridium, and oxybutynin for stent ma nagrenetta N.p.o. at midnight for possible stone treatment tomorrow pending urine culture IVF with Plasma-Lyte at 80 mL.hr x 1 IV pain control with acetaminophen, Toradol, and Dilaudid as needed IV antiemetics with Zofran as needed #UTI Clinically, patient endorses ongoing dysuria and burning with urination Failure of outpatient antibiotics (cefdinir course on 06/13 and doxycycline course on 06/24) Mild leukocytosis at 11.97 on arrival Afebrile, but in the setting of consistent Tylenol use at home Ceftriaxone 2000 mg IV q24h Most recent urine culture on 06/11 grew Staphylococcus epidermis (resistant to Bactrim; sensitive to oxacillin) Follow current urine culture #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 Multani is doing better today compared to yesterday. She reports the pain in her right flank is well-controlled on IV pain medications, and she is currently not experiencing pain while in bed. She still having burning with urination, and did notice that her urine is still "light pink". No bowel movements yet today, but she was having diarrhea prior to coming to hospital. She still feeling slightly off balance/lightheaded when walking up to the bathroom. Overall though, she feels that her pain is controlled and moving in the right direction. Additionally, she reports that she needed Benadryl last night due to an allergic reaction from the EKG stickers/adhesive. ROS: Patient endorses right flank pain, dysuria, hematuria, burning with urination, lightheadedness with walking, and headache. Patient denies fever, chills, night sweats, chest pain, SOB, cough, N/V, saddle esthesia, numbness tingling going to the legs, melena, or blood in the urine or stool. Review of Systems Review of Systems: See HPI above Physical Exam Physical Exam: General: no acute distress; fatigue; non-toxic appearing; well-nourished; cooperative; SpO2 94% on RA HEENT: normocephalic, atraumatic; no scleral icterus; PERRLA; vision and hearing grossly intact Neck: supple; no lymphadenopathy; trachea midline Skin: warm, dry without signs of tenting; no cyanosis; no rashes, bruising, lesions, or erythema noted CV: chest wall NTP; RRR; S1/S2 normal; no murmurs/rubs/gallops; pulses intact and symmetric at radial, DP, and PT Lungs: no acute respiratory distress; symmetrical chest wall expansion; clear breath sounds across all lung cuevas w/o adventitious sounds; no wheezing ABD: Soft, TTP in the right flank and lower quadrant; BS present; no rebound/guarding; no distention; no rashes or bruising appreciated in the abdomen or flanks bilaterally Back: Positive CVA tenderness on the right side MSK: no tics or fasciculations; no edema noted in the LEs b/l, nonerythematous; patient demonstrates good to wiggle toes, plantarflex, and dorsiflex bilaterally against resistance Neuro: A&Ox3; normal mood and affect; fluent speech; no focal deficits; patient reports sensation is intact and symmetric in lower extremities bilaterally assessed via light touch PG Care Time/CCT Total # of Minutes Spent Total Time Spent with Patient: Total time spent is greater than 50% in coordination of care (as documented) at patient's floor/unit and/or counseling patient: Coding [place] [address] SUB INP/OBS CARE 2/35MIN Patient Type Established History Comprehensive Exam Comprehensive Medical Decision Making Moderate Complexity Diagnoses Right flank pain R10.9 UTI (urinary tract infection) N39.0 Hematuria R31.9 Nephrolithiasis N20.0
[2025-07-07] MEDS: HYDROmorphone INJ 0.5 MG/0.5 ML SYR IV PRN (13:19)
[2025-07-07] MEDS: cefTRIAXone SODIUM 2,000 MG/50 ML BAG IV SCH (14:49)
[2025-07-07] MEDS ORDERED: Nursing to Pharmacy Communication SCH (21:45)
[2025-07-07] MEDS: NICOTINE 14 MG/24 HR PATCH TD STA (21:47)
[2025-07-08] MEDS: NICOTINE 14 MG/24 HR PATCH TD SCH (07:55)
[2025-07-08] MEDS: REMOVE NICODERM PATCH SCH (07:55)
[2025-07-08] MEDS ORDERED: POLYETHYLENE (MIRALAX) 17 GM PACK PO PRN (08:56)
[2025-07-08] MEDS: SODIUM CHLORIDE 0.9% 500 ML IV SCH (09:49)
--- NOTE | 2025-07-08 10:06 | Urology Progress Note ---
Date of Service July 08, 2025 Assessment & Plan (1) Right flank pain: (2) Nephrolithiasis: Plan: 40-year-old female with history of an obstructing right ureteral stone status post right ureteral stent in May admitted for intractable right flank pain. Patient afebrile and hemodynamically stable No new labs at time of visit today Urine culture showed moderate counts of mixed organisms She has been on broad-spectrum antibioticscontinue for now Patient poorly tolerating right ureteral stentcontinue with pain management and supportive care We discussed proceeding with definitive stone treatment today with Dr. Nick and she is agreeable Will proceed to OR for cystoscopy, right ureteroscopy, laser lithotripsy and right ureteral stent exchange Risks and benefits of procedure to be reviewed with patient by Dr. Nick Keep n.p.o. for procedure Continue scheduled antibiotics Urology will follow, please contact our service with any additional questions or concerns Admission and Anticipated Discharge Date Admission Date: July 06, 2025 Subjective Patient seen and examined at bedside this morning. She is awake and resting in bed. Continues to have right flank discomfort. No fever or chills. Voiding spontaneously. Currently NPO. Review of Systems Constitutional: as per Subjective / HPI Genitourinary: as per Subjective / HPI Physical Exam Constitutional: well developed and well nourished; no acute distress Respiratory: normal respiratory effort; no respiratory distress and no labored breathing Gastrointestinal (Abdomen): Inspection/Auscultation: abdomen normal to inspection Musculoskeletal: Head/Neck/Chest: normocephalic Neurologic: moves all extremities and awake Psychiatric: Orientation: alert and oriented x 3 Results & Data Vital Signs (Past 12 Hours) Vital Signs Temp Pulse Resp BP Pulse Ox O2 Del Method 07/08/25 07:28 36.7 C 85 16 128/86 95 Room Air 07/07/25 23:00 36.8 C 72 16 111/72 95 Room Air PG Care Time/CCT Total # of Minutes Spent Total Time Spent with Patient: Total time spent is greater than 50% in coordination of care (as documented) at patient's floor/unit and/or counseling patient: Coding Level of Care Code 05890 SUB INP/OBS CARE 3/50MIN Diagnoses Right flank pain R10.9 Nephrolithiasis N20.0
--- NOTE | 2025-07-08 12:56 | Hospitalist Progress Note ---
Date of Service July 08, 2025 Assessment & Plan (1) Right flank pain: (2) UTI (urinary tract infection): (3) Hematuria: (4) Nephrolithiasis: Plan This patient is a 40-year-old female who presented on 07/06 for acute right flank pain. She has a known right kidney stone with (approximately 1 cm); underwent stent placement with Dr. Aguila on 06/01 with planned follow-up for stone extraction. #Intractable right flank pain | nephrolithiasis Afebrile; VSS KUB on arrival revealed right ureteral stent in place/well-positioned Patient was originally scheduled for stone extraction on July 22, but has been unable to tolerate the pain at home Urology consult appreciated Recommend addition of tamsulosin, Pyridium, and oxybutynin for stent management Patient to undergo cystoscopy and laser lithotripsy on 07/[address] Nick IV pain control with acetaminophen, Toradol, and Dilaudid as needed IV antiemetics with Zofran as needed #Back pain | LLE strength deficits Patient relates history of falling down a flight of stairs on May 08; no designated imaging of the lumbar spine after fall Since this time, she has had recurrent lower back pain, potentially masked by her pain related to kidney stone On physical exam, she exhibits clear strength deficits in the left lower extremity when compared to the right She also reported 1 episode of fecal incontinence prior to admission; while this was in the setting of "diarrhea" where she was unable to get to the bathroom in time, feel this is abnormal given patient's age Lumbar spine MRI without contrast ordered, pending #UTI Clinically, patient endorses ongoing dysuria and burning with urination Failure of outpatient antibiotics (cefdinir course on 06/13 and doxycycline course on 06/24) Mild leukocytosis at 11.97 on arrival Afebrile, but in the setting of consistent Tylenol use at home Ceftriaxone 2000 mg IV q24h Most recent urine culture on 06/11 grew Staphylococcus epidermis (resistant to Bactrim; sensitive to oxacillin) Follow current urine culture #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 Multani reports she still having 4 out of 10 right-sided flank and lower back pain this morning. She does report that the pain medications have been helping. While she is still having burning with urination, she reports that her urine is no longer pink/blood-tinged. No BMs yet while in the hospital. ROS: Patient endorses burning with urination, dysuria, bilateral lower back pain, and right flank pain rating around to the groin. Patient denies fever, chills, night sweats, chest pain, SOB, pleuritic CP, cough, suprapubic tenderness, saddle anesthesia, or numbness or tingling going down the legs. Review of Systems Review of Systems: See HPI above Physical Exam Physical Exam: General: no acute distress; fatigue; non-toxic appearing; cooperative; SpO2 92% on RA HEENT: normocephalic, atraumatic; no scleral icterus; PERRLA; vision and hearing grossly intact Neck: supple; no lymphadenopathy; trachea midline Skin: warm, dry without signs of tenting; no cyanosis; no rashes, bruising, lesions, or erythema noted CV: chest wall NTP; RRR; S1/S2 normal; no murmurs/rubs/gallops; pulses intact and symmetric at radial, DP, and PT Lungs: no acute respiratory distress; symmetrical chest wall expansion; clear breath sounds across all lung cuevas w/o adventitious sounds; no wheezing ABD: Soft, TTP in the right flank and lower quadrant; BS present; no rebound/guarding; no distention; no rashes or bruising appreciated in the abdomen or flanks bilaterally Back: Positive CVA tenderness on the right side; lumbar spine from L2-L4 is TTP; no bruising appreciated on the back MSK: no tics or fasciculations; no edema noted in the LEs b/l, nonerythematous; patient exhibits decreased strength in the left lower extremity 3/5 strength when compared to the right lower extremity 5/5 when assessing for plantar/dorsiflexion and patient's ability to lift leg off the bed while lying supine Neuro: A&Ox3; normal mood and affect; fluent speech; no focal deficits; patient reports sensation is intact and symmetric in lower extremity bilaterally Results & Data Results & Data Vital Signs (Past 12 Hours) Vital Signs Temp Pulse Resp BP Pulse Ox O2 Del Method 07/08/25 07:28 36.7 C 85 16 128/86 95 Room Air PG Care Time/CCT Total # of Minutes Spent Total Time Spent with Patient: Total time spent is greater than 50% in coordination of care (as documented) at patient's floor/unit and/or counseling patient: Coding [place] [address] SUB INP/OBS CARE 2/35MIN Patient Type Established History Comprehensive Exam Comprehensive Medical Decision Making Moderate Complexity Diagnoses Right flank pain R10.9 UTI (urinary tract infection) N39.0 Hematuria R31.9 Nephrolithiasis N20.0
--- NOTE | 2025-07-08 13:38 | Anesthesiology Consultation ---
Date of Service July 08, 2025 Assessment & Plan ASA ASA3 Proposed Anesthesia Anesthesia Type: General Risk / Benefits Reviewed With: PT / POA / Parent / Guardian, Accepts Plan and Informed Consent Obtained History Surgery Operation Date: 07/08/25 13:15 Proposed Procedures p Cystoscopy, Right Ureteroscopy, Laser Lithotripsy, Right Stent Exchange - Lexa Nick, DO Height/Weight Height: 5 ft 4 in Weight: 83.7 kg Allergies Allergy/AdvReac Type Severity Reaction Status Date / Time shrimp Allergy Severe Difficulty Verified 06/21/25 13:23 Breathing adhesive Allergy Intermediate Rash Verified 06/21/25 13:23 contact metal agent Allergy Intermediate [place]=Ronnie Verified 06/21/25 13:23 h latex Allergy Intermediate Rash Verified 06/21/25 13:23 gold Au 198 Allergy Mild Rash, hives Verified 06/21/25 13:23 nickel Allergy Mild Rash Verified 06/21/25 13:23 prednisone AdvReac Severe Swelling Verified 06/21/25 13:23 of Lip/Tongue/Throat aspirin AdvReac Mild Nausea Verified 06/21/25 13:23 Medications Home Medications Medication Instructions Recorded Confirmed Last Taken blood sugar diagnostic (OneTouch #150 ea 04/15/23 07/06/25 Unknown Verio test strips) blood-glucose meter (OneTouch #1 ea 04/15/23 07/06/25 Unknown Verio Reflect Meter) cholestyramine 4 gram oral powder 4 g PO BID 03/19/25 07/06/25 Unknown for suspension in a packet (Prevalite) oxymetazoline 0.05 % nasal spray 2 spray intranasal Q12H PRN 03/19/25 07/06/25 2 Months Ago (Afrin Sinus (oxymetazoline)) Allergic Symptoms ~04/01/25 Abdominal Binder #1 ea 03/23/25 07/06/25 Unknown lancets 33 gauge (OneTouch Delica #100 ea 04/07/25 07/06/25 Unknown Plus Lancet) albuterol sulfate 90 mcg/actuation 2 inh inhalation QID PRN shortness 05/04/25 07/06/25 05/30/25 aerosol inhaler (Ventolin HFA) of breath or wheezing #8.5 grams Allergy Medication 1 cap PO DAILY 06/01/25 07/06/25 05/31/25 07:30 phenazopyridine 100 mg tablet 100 mg PO TID PRN pain 6 doses #30 06/02/25 07/06/25 Unknown (Pyridium) tabs fluticasone propionate 50 1 spray intranasal BID allergies 06/03/25 07/06/25 Unknown mcg/actuation nasal #16 grams spray,suspension (Flonase Allergy Relief) epinephrine 0.3 mg/0.3 mL 0.3 mg (0.3 mL) IM ONCE PRN 06/09/25 07/06/25 Unknown injection, auto-injector (EpiPen anaphylaxis #2 ea 2-Medardo) cholecalciferol (vitamin D3) 125 125 mcg PO DAILY 06/15/25 07/06/25 Unknown mcg (5,000 unit) capsule famotidine 40 mg tablet 40 mg PO DAILY #30 tabs 06/15/25 07/06/25 Unknown sertraline 100 mg tablet 100 mg PO DAILY #90 tabs 06/21/25 07/06/25 Unknown azelastine 137 mcg (0.1 %) nasal 1 - 2 spray intranasal .1-2 TIMES 07/06/25 07/06/25 Unknown spray A DAY Allergic Symptoms pantoprazole 40 mg tablet,delayed 40 mg PO DAILYBB 07/06/25 07/06/25 Unknown release (Protonix) Active Medications Generic Name Dose Route Start Last Admin Trade Name Freq PRN Reason Stop Dose Admin Azelastine HCl 2 sprays 07/06/25 22:00 07/08/25 07:54 Azelastine Hcl 0.1% Nasal 200 Sprays/27,400 Mcg Btl NA 08/05/25 21:59 2 sprays BID CARMEN Administration Famotidine 40 mg 07/07/25 09:00 07/08/25 07:54 Famotidine 40 Mg Tablet PO 08/06/25 08:59 40 mg DAILY CARMEN Administration Fluticasone Propionate 1 sprays 07/06/25 22:00 07/08/25 07:55 Fluticasone Propionate Na Spr 16 Gm Btl NA 08/05/25 21:59 1 sprays BID CARMEN Administration Hydromorphone HCl 0.5 mg 07/06/25 21:52 07/08/25 07:50 Hydromorphone Inj 0.5 Mg/0.5 Ml Syr IV 07/20/25 21:51 0.5 mg Q3H PRN Administration Severe pain (710) on NRS Ceftriaxone Sodium 2,000 mg in 50 mls @ 100 mls/hr 07/07/25 15:45 07/07/25 15:19 Rocephin IV 07/12/25 15:44 Infused Q24H CARMEN Infusion Sodium Chloride 500 mls @ 80 mls/hr 07/08/25 08:30 07/08/25 09:49 Nss IV 07/08/25 14:44 80 mls/hr .Q6H15M CARMEN Administration Ketorolac Tromethamine 15 mg 07/06/25 21:52 07/08/25 09:48 Ketorolac Tromethamine 15 Mg/Ml Vial IV 07/11/25 21:51 15 mg Q6H PRN Administration Moderate pain (4-6) n NRS Miscellaneous 1 each 07/08/25 08:59 07/08/25 07:55 Remove Nicoderm Patch N/A 08/07/25 08:58 1 each DAILY@0859 CARMEN Administration Nicotine 1 patch 07/08/25 09:00 07/08/25 07:55 Nicotine 14 Mg/24 Hr Patch TD 08/07/25 08:59 1 patch QAM CARMEN Administration Oxymetazoline HCl 2 sprays 07/06/25 21:52 07/06/25 22:21 Oxymetazoline 0.05% 30 Ml Btl NA 08/05/25 21:51 2 sprays Q12H PRN Administration Allergic Symptoms Pantoprazole Sodium 40 mg 07/07/25 06:30 07/08/25 06:05 Pantoprazole 40 Mg Tab PO 08/06/25 06:29 Not Given DAILYBB CARMEN Sertraline HCl 100 mg 07/07/25 09:00 07/08/25 07:56 Sertraline Hcl 100 Mg Tablet PO 08/06/25 08:59 100 mg DAILY CARMEN Administration NPO Date Last Intake of Fluids: 07/07/25 Time Last Intake of Fluids: 23:30 Last Intake of Fluids Comment: sip of water 0945 w/med Date Last Intake of Solids: 07/07/25 Time Last Intake of Solids: 23:30 Past Medical History Medical History History of vitamin D deficiency Hydronephrosis Acute right flank pain Renal colic Right distal ureteral calculus Hx of sepsis (2022) admit at [facility] / kidney stones Hydroureteronephrosis Orthostatic dizziness Per cardio records Family history of adverse reaction to anesthesia Mother - significant PONV Father - decreased in BP (took Lisinopril per patient) Maternal grandmother- "turned green" post operatively- no other specifics- grandmother is still alive Menorrhagia Reason for procedure 03/19/25 "They said I had fluid on the ultrasound" as per patient Lupus (systemic lupus erythematosus) possibly - pcp had blood test completed, patient doesn't have results yet on lupus, doesn't think results will be until the end of 03/2025 - lyme was (-) as per patient History of postoperative nausea and vomiting History of syncope 2022 states was caused by pain Hyperlipidemia Medical non-compliance states stopped po meds (nortriptylline, lansoprazole) due to having "stomach pain"- advised to make ordering provider awares MIRYAM (generalized anxiety disorder) Palpitations sees dr. angel- no findings GERD (gastroesophageal reflux disease) Hx of migraines Hx of renal calculi (2022) Hx gestational diabetes Seasonal allergies Fibromyalgia Asthma prn inhaler use Depression Seizure disorder Remote hx of "stress seizures", previously on Zonisamide- discontinued, no recent issues, states after kidney stones resolved no longer had seizures or blood pressure issues Hypertension Exercise / Class Metabolic Activity II 4-5 Yardwork/Stairs/Walk up hill Past Family History Family History Father Kidney stones Hypertension Mother Hypertension Sister Hypertension Uncle Colorectal cancer Myocardial infarction Grandfather (Paternal) Prostate cancer Myocardial infarction Other No family history of adverse response to anesthesia Denies family history of Ovarian cancer Breast cancer Past Surgical History Surgical History History of tubal ligation S/P cystoscopy with ureteral stent placement (2022) History of esophagogastroduodenoscopy (EGD) Hx of colonoscopy Hx of sinus surgery x2 Hx of lithotripsy Hx of tooth extraction Hx of wisdom tooth extraction Previous section x 6, most recent 09/20/23 Past Anesthesia History No Hx of Anesthesia Complications and No Family Hx of Anesthesia Complications History of PONV No Hx of PONV and No Hx of Motion Sickness Social History Smoking Status: Current every day smoker tobacco type: cigarettes Smoking cigarettes per day: 1 pack per day Do You Dip or Chew Tobacco: No Hx Alcohol Use: No Hx Substance Use: No substance use type: does not use and former substance user Substance Use Type Other:: advised by nursing Last Used Substance Other:: clean since 2007 Physical Exam Vital Signs Last Vital Signs Temp 36.9 C 07/08/25 13:25 Pulse 81 07/08/25 13:25 Resp 20 07/08/25 13:25 BP 126/82 07/08/25 13:25 Pulse Ox 95 07/08/25 13:25 O2 Del Method Room Air 07/08/25 13:25 Constitutional no acute distress ENMT Mouth: + dentition abnormality, + dentures and + edentulous Thyromental Distance: > or= 3.5 Finger Breadths Mallampati Class: II Neck normal visual inspection Respiratory normal respiratory effort; no respiratory distress Auscultation: lungs clear to auscultation bilaterally Cardiovascular Rate/Rhythm: regular rate and regular rhythm Heart Sounds: no murmur Musculoskeletal Spine: normal cervical ROM Psychiatric Orientation: alert and oriented x 3 Testing Laboratory Results 07/07/25 06:56 07/07/25 06:56 Urine Color [place] 07/06/25 14:25 Urine Appearance Cloudy (Clear) A 07/06/25 14:25 Urine pH 7.0 (4.5-7.5) 07/06/25 14:25 Ur Specific Thompson 1.016 (1.000-1.030) 07/06/25 14:25 Urine Protein 3+ (Negative) H 07/06/25 14:25 Urine Glucose (UA) Negative (Negative) 07/06/25 14:25 Urine Ketones Negative (Negative) 07/06/25 14:25 Urine Nitrite Negative (Negative) 07/06/25 14:25 Ur Leukocyte Esterase 2+ (Negative) H 07/06/25 14:25 Urine WBC (Auto) >50 /hpf (0-5) H 07/06/25 14:25 Urine RBC (Auto) >20 /hpf (0-2) H 07/06/25 14:25 U Hyaline Cast (Auto) 0-2 /lpf (0-2) 07/06/25 14:25 U Epithel Cells (Auto) 6-10 /hpf (0-2) H 07/06/25 14:25 Urine Bacteria (Auto) None Seen (None Seen) 07/06/25 14:25 07/06/25 14:25 Urine Culture - Final Urine,Clean Catch More than three types of organisms present, all moderate counts mixed probable skin xiang. No further identifications or sensitivities to follow. 07/08/25 07/08/25 11:29 05:48 POC Glucose 82 87 Day of Procedure Evaluation. Date of Surgery July 08, 2025 Height/Weight Height: 5 ft 4 in Weight: 83.7 kg Vital Signs Last Vital Signs Temp 36.9 C 07/08/25 13:25 Pulse 81 07/08/25 13:25 Resp 20 07/08/25 13:25 BP 126/82 07/08/25 13:25 Pulse Ox 95 07/08/25 13:25 O2 Del Method Room Air 07/08/25 13:25 Allergies Allergy/AdvReac Type Severity Reaction Status Date / Time shrimp Allergy Severe Difficulty Verified 06/21/25 13:23 Breathing adhesive Allergy Intermediate Rash Verified 06/21/25 13:23 contact metal agent Allergy Intermediate [place]=Ronnie Verified 06/21/25 13:23 h latex Allergy Intermediate Rash Verified 06/21/25 13:23 gold Au 198 Allergy Mild Rash, hives Verified 06/21/25 13:23 nickel Allergy Mild Rash Verified 06/21/25 13:23 prednisone AdvReac Severe Swelling Verified 06/21/25 13:23 of Lip/Tongue/Throat aspirin AdvReac Mild Nausea Verified 06/21/25 13:23 Medications Home Medications Medication Instructions Recorded Confirmed Last Taken blood sugar diagnostic (Door to Door OrganicsTouch #150 ea 04/15/23 07/06/25 Unknown Verio test strips) blood-glucose meter (OneTouch #1 ea 04/15/23 07/06/25 Unknown Verio Reflect Meter) cholestyramine 4 gram oral powder 4 g PO BID 03/19/25 07/06/25 Unknown for suspension in a packet (Prevalite) oxymetazoline 0.05 % nasal spray 2 spray intranasal Q12H PRN 03/19/25 07/06/25 2 Months Ago (Afrin Sinus (oxymetazoline)) Allergic Symptoms ~04/01/25 Abdominal Binder #1 ea 03/23/25 07/06/25 Unknown lancets 33 gauge (OneTouch Delica #100 ea 04/07/25 07/06/25 Unknown Plus Lancet) albuterol sulfate 90 mcg/actuation 2 inh inhalation QID PRN shortness 05/04/25 07/06/25 05/30/25 aerosol inhaler (Ventolin HFA) of breath or wheezing #8.5 grams Allergy Medication 1 cap PO DAILY 06/01/25 07/06/25 05/31/25 07:30 phenazopyridine 100 mg tablet 100 mg PO TID PRN pain 6 doses #30 06/02/25 07/06/25 Unknown (Pyridium) tabs fluticasone propionate 50 1 spray intranasal BID allergies 06/03/25 07/06/25 Unknown mcg/actuation nasal #16 grams spray,suspension (Flonase Allergy Relief) epinephrine 0.3 mg/0.3 mL 0.3 mg (0.3 mL) IM ONCE PRN 06/09/25 07/06/25 Unknown injection, auto-injector (EpiPen anaphylaxis #2 ea 2-Medardo) cholecalciferol (vitamin D3) 125 125 mcg PO DAILY 06/15/25 07/06/25 Unknown mcg (5,000 unit) capsule famotidine 40 mg tablet 40 mg PO DAILY #30 tabs 06/15/25 07/06/25 Unknown sertraline 100 mg tablet 100 mg PO DAILY #90 tabs 06/21/25 07/06/25 Unknown azelastine 137 mcg (0.1 %) nasal 1 - 2 spray intranasal .1-2 TIMES 07/06/25 07/06/25 Unknown spray A DAY Allergic Symptoms pantoprazole 40 mg tablet,delayed 40 mg PO DAILYBB 07/06/25 07/06/25 Unknown release (Protonix) Active Medications Generic Name Dose Route Start Last Admin Trade Name Freq PRN Reason Stop Dose Admin Azelastine HCl 2 sprays 07/06/25 22:00 07/08/25 07:54 Azelastine Hcl 0.1% Nasal 200 Sprays/27,400 Mcg Btl NA 08/05/25 21:59 2 sprays BID CARMEN Administration Famotidine 40 mg 07/07/25 09:00 07/08/25 07:54 Famotidine 40 Mg Tablet PO 08/06/25 08:59 40 mg DAILY CARMEN Administration Fluticasone Propionate 1 sprays 07/06/25 22:00 07/08/25 07:55 Fluticasone Propionate Na Spr 16 Gm Btl NA 08/05/25 21:59 1 sprays BID CARMEN Administration Hydromorphone HCl 0.5 mg 07/06/25 21:52 07/08/25 07:50 Hydromorphone Inj 0.5 Mg/0.5 Ml Syr IV 07/20/25 21:51 0.5 mg Q3H PRN Administration Severe pain (710) on NRS Ceftriaxone Sodium 2,000 mg in 50 mls @ 100 mls/hr 07/07/25 15:45 07/07/25 15:19 Rocephin IV 07/12/25 15:44 Infused Q24H CARMEN Infusion Sodium Chloride 500 mls @ 80 mls/hr 07/08/25 08:30 07/08/25 09:49 Nss IV 07/08/25 14:44 80 mls/hr .Q6H15M CARMEN Administration Ketorolac Tromethamine 15 mg 07/06/25 21:52 07/08/25 09:48 Ketorolac Tromethamine 15 Mg/Ml Vial IV 07/11/25 21:51 15 mg Q6H PRN Administration Moderate pain (4-6) n NRS Miscellaneous 1 each 07/08/25 08:59 07/08/25 07:55 Remove Nicoderm Patch N/A 08/07/25 08:58 1 each DAILY@0859 CARMEN Administration Nicotine 1 patch 07/08/25 09:00 07/08/25 07:55 Nicotine 14 Mg/24 Hr Patch TD 08/07/25 08:59 1 patch QAM CARMEN Administration Oxymetazoline HCl 2 sprays 07/06/25 21:52 07/06/25 22:21 Oxymetazoline 0.05% 30 Ml Btl NA 08/05/25 21:51 2 sprays Q12H PRN Administration Allergic Symptoms Pantoprazole Sodium 40 mg 07/07/25 06:30 07/08/25 06:05 Pantoprazole 40 Mg Tab PO 08/06/25 06:29 Not Given DAILYBB CARMEN Sertraline HCl 100 mg 07/07/25 09:00 07/08/25 07:56 Sertraline Hcl 100 Mg Tablet PO 08/06/25 08:59 100 mg DAILY CARMEN Administration Past Anesthesia History No Hx of Anesthesia Complications and No Family Hx of Anesthesia Complications History of PONV No Hx of PONV and No Hx of Motion Sickness NPO Date Last Intake of Fluids: 07/07/25 Time Last Intake of Fluids: 23:30 Last Intake of Fluids Comment: sip of water 0945 w/med Date Last Intake of Solids: 07/07/25 Time Last Intake of Solids: 23:30 HCG & FBG Results 07/08/25 07/08/25 11:29 05:48 POC Glucose 82 87 Home Medications Home Medications Medication Instructions Recorded Confirmed Last Taken blood sugar diagnostic (Door to Door OrganicsTouch #150 ea 04/15/23 07/06/25 Unknown Verio test strips) blood-glucose meter (OneTouch #1 ea 04/15/23 07/06/25 Unknown Verio Reflect Meter) cholestyramine 4 gram oral powder 4 g PO BID 03/19/25 07/06/25 Unknown for suspension in a packet (Prevalite) oxymetazoline 0.05 % nasal spray 2 spray intranasal Q12H PRN 03/19/25 07/06/25 2 Months Ago (Afrin Sinus (oxymetazoline)) Allergic Symptoms ~04/01/25 Abdominal Binder #1 ea 03/23/25 07/06/25 Unknown lancets 33 gauge (OneTouch Delica #100 ea 04/07/25 07/06/25 Unknown Plus Lancet) albuterol sulfate 90 mcg/actuation 2 inh inhalation QID PRN shortness 05/04/25 07/06/25 05/30/25 aerosol inhaler (Ventolin HFA) of breath or wheezing #8.5 grams Allergy Medication 1 cap PO DAILY 06/01/25 07/06/25 05/31/25 07:30 phenazopyridine 100 mg tablet 100 mg PO TID PRN pain 6 doses #30 06/02/25 07/06/25 Unknown (Pyridium) tabs fluticasone propionate 50 1 spray intranasal BID allergies 06/03/25 07/06/25 Unknown mcg/actuation nasal #16 grams spray,suspension (Flonase Allergy Relief) epinephrine 0.3 mg/0.3 mL 0.3 mg (0.3 mL) IM ONCE PRN 06/09/25 07/06/25 Unknown injection, auto-injector (EpiPen anaphylaxis #2 ea 2-Medardo) cholecalciferol (vitamin D3) 125 125 mcg PO DAILY 06/15/25 07/06/25 Unknown mcg (5,000 unit) capsule famotidine 40 mg tablet 40 mg PO DAILY #30 tabs 06/15/25 07/06/25 Unknown sertraline 100 mg tablet 100 mg PO DAILY #90 tabs 06/21/25 07/06/25 Unknown azelastine 137 mcg (0.1 %) nasal 1 - 2 spray intranasal .1-2 TIMES 07/06/25 07/06/25 Unknown spray A DAY Allergic Symptoms pantoprazole 40 mg tablet,delayed 40 mg PO DAILYBB 07/06/25 07/06/25 Unknown release (Protonix) Active Medications Generic Name Dose Route Start Last Admin Trade Name Freq PRN Reason Stop Dose Admin Azelastine HCl 2 sprays 07/06/25 22:00 07/08/25 07:54 Azelastine Hcl 0.1% Nasal 200 Sprays/27,400 Mcg Btl NA 08/05/25 21:59 2 sprays BID CARMEN Administration Famotidine 40 mg 07/07/25 09:00 07/08/25 07:54 Famotidine 40 Mg Tablet PO 08/06/25 08:59 40 mg DAILY CARMEN Administration Fluticasone Propionate 1 sprays 07/06/25 22:00 07/08/25 07:55 Fluticasone Propionate Na Spr 16 Gm Btl NA 08/05/25 21:59 1 sprays BID CARMEN Administration Hydromorphone HCl 0.5 mg 07/06/25 21:52 07/08/25 07:50 Hydromorphone Inj 0.5 Mg/0.5 Ml Syr IV 07/20/25 21:51 0.5 mg Q3H PRN Administration Severe pain (710) on NRS Ceftriaxone Sodium 2,000 mg in 50 mls @ 100 mls/hr 07/07/25 15:45 07/07/25 15:19 Rocephin IV 07/12/25 15:44 Infused Q24H CARMEN Infusion Sodium Chloride 500 mls @ 80 mls/hr 07/08/25 08:30 07/08/25 09:49 Nss IV 07/08/25 14:44 80 mls/hr .Q6H15M CARMEN Administration Ketorolac Tromethamine 15 mg 07/06/25 21:52 07/08/25 09:48 Ketorolac Tromethamine 15 Mg/Ml Vial IV 07/11/25 21:51 15 mg Q6H PRN Administration Moderate pain (4-6) n NRS Miscellaneous 1 each 07/08/25 08:59 07/08/25 07:55 Remove Nicoderm Patch N/A 08/07/25 08:58 1 each DAILY@0859 CARMEN Administration Nicotine 1 patch 07/08/25 09:00 07/08/25 07:55 Nicotine 14 Mg/24 Hr Patch TD 08/07/25 08:59 1 patch QAM CARMEN Administration Oxymetazoline HCl 2 sprays 07/06/25 21:52 07/06/25 22:21 Oxymetazoline 0.05% 30 Ml Btl NA 08/05/25 21:51 2 sprays Q12H PRN Administration Allergic Symptoms Pantoprazole Sodium 40 mg 07/07/25 06:30 07/08/25 06:05 Pantoprazole 40 Mg Tab PO 08/06/25 06:29 Not Given DAILYBB CARMEN Sertraline HCl 100 mg 07/07/25 09:00 07/08/25 07:56 Sertraline Hcl 100 Mg Tablet PO 08/06/25 08:59 100 mg DAILY CARMEN Administration Exercise / Class Metabolic Activity Metabolic Activity: II 4-5 Yardwork/Stairs/Walk up hill Physical Exam Constitutional: no acute distress Mouth: + dentition abnormality, + dentures and + edentulous Thyromental Distance: > or= 3.5 Finger Breadths Mallampati Class: II Neck: + visual inspection normal Respiratory: + respiratory effort normal and + clear to auscultation bilaterally; no respiratory distress Cardiovascular: + regular rate and + regular rhythm; no murmur Musculoskeletal: no limited cervical ROM Psychiatric: + alert and + oriented x 3 ASA ASA3 Proposed Anesthesia Proposed Anesthesia: General Risk / Benefits Reviewed With: PT / POA / Parent / Guardian, Accepts Plan and Informed Consent Obtained
[2025-07-08] MEDS ORDERED: ATROPINE SULFATE 0.1 MG/ML 10ML SYR IV PRN (13:39)
[2025-07-08] MEDS ORDERED: PROMETHAZINE HCL 6.25 MG in SODIUM CHLORIDE 0.9% 50 ML IV PRN (13:39)
[2025-07-08] MEDS ORDERED: DEXAMETHASONE SOD INJ 4 MG/ML VIAL ONE (13:53)
[2025-07-08] MEDS ORDERED: PROPOFOL IV EMULSION 10 MG/ML 20 ML VIAL IV ONE (13:53)
[2025-07-08] MEDS ORDERED: ONDANSETRON INJ 2 MG/ML 2 ML VIAL ONE (13:53)
[2025-07-08] MEDS ORDERED: LIDOCAINE 2% 2 ML VIAL/AMP(20MG/ML) INFIL ONE (13:53)
[2025-07-08] MEDS ORDERED: MIDAZOLAM HCL 1 MG/ML 2ML VIAL ONE (13:54)
[2025-07-08] MEDS ORDERED: SCOPOLAMINE 1 MG/72 HR TDSY PATCH TD ONE (14:12)
[2025-07-08] MEDS ORDERED: ceFAZolin 330 MG/ML 1 GM VIAL ONE (14:29)
[2025-07-08] MEDS ORDERED: DIATRIZOATE MEGLUMINE 30% 100ML VIAL INSTIL PRN (14:49)
[2025-07-08] MEDS: DIATRIZOATE MEGLUMINE 30% 100ML VIAL INSTIL ONE (15:09)
--- NOTE | 2025-07-08 15:14 | Operative Report ---
PG Post Operative Report Pre & Post Diagnosis Operation Date: 07/08/25 13:15 Pre-Op Diagnosis: (1) Right flank pain (2) Ureteral stone Post-Op Diagnosis: (1) Right flank pain (2) Ureteral stone I identified the patient and participated in the time-out.: Yes Procedure Operation Date: 07/08/25 13:15 Actual Procedures p Cystoscopy with Right Ureteroscopy, Laser Lithotripsy, stone basket extraction, retrograde pyelogram, and Right Stent Exchange(Right) - Lexa Nick DO Surgeon Lexa Nick, II, DO Director Of Assessment None Estimated Blood Loss 1 Findings Consistent with Post-Op Diagnosis Stone destroyed to dust and small fragments and larger fragments removed. Specimens Stone Fragments Drains 4.8 Fr x 26 cm Right Anesthesia Type General Complications none Disposition Disposition: Recovery Room Indications Patient with bothersome stones. Risks and benefits discussed at length. Description of Procedure Patient was consented and brought back to the operating room. Patient was placed under anesthesia in the supine position and moved to the dorsal lithotomy position. Patient was prepped and draped in the regular sterile fashion. A time out was completed. A 30degree Cystoscope was placed into the bladder and the entire bladder was examined. The UO's were identified. The stent was grasped and removed. The UO was cannulized with a catheter and a retrograde pyelogram was completed. A wire was then placed. The Rigid ureteroscope was taken into the ureter. The stone was identified. A laser fiber was selected and the stones were pulverized to dust and small fragments. Larger fragments were grasped and removed and sent for analysis. A second wire was then placed and the rigid scope removed. The flexible scope was then taken over the second wire and advanced to the proximal ureter and renal pelvis. The entire pelvis was examined and the stones were further treated with the laser and basketed for removal. The entire area was once again examined. No residual large fragments or areas of concern were noted. The scope was slowly removed with the wire left in place. Contrast was placed through the scope for a pyelogram to assist in stent placement. The entire ureter was examined as the scope was slowly removed. No obstructions or other areas of concern were noted. With the wire in place, a 4.8 Fr Double J stent was placed. It was confirmed with fluoroscopy. With the stent in place, the bladder was emptied. The scope was removed. The patient was cleaned, aroused from anesthesia, and transferred to the pacu in stable condition having tolerated the procedure well with no complications. I was present and participated in all aspects of the procedure. The patient will be monitored in the PACU until transferred. Plan to remove stent in 1-2 weeks in office. I attest to the content of the Intraoperative Record and any orders documented therein. Any exceptions are noted below.
--- NOTE | 2025-07-08 15:33 | Fluoroscopy Report ---
FL retrograde includes kub CLINICAL HISTORY: RIGHT COMPARISON STUDY: None FLUOROSCOPY TIME: 15 seconds FLUOROSCOPY IMAGES: 3 EXPOSURE DOSE: 4 mGy FINDINGS: Fluoroscopy was provided for urologic procedure. IMPRESSION: Intraoperative fluoroscopy. ACT 112: Negative or not required by law. Electronically signed by: Lorenzo Zamarripa M.D. 07/08/2025 3:31 PM
--- NOTE | 2025-07-08 15:43 | Anesthesiology Progress Note ---
Date of Service July 08, 2025 Anesthesia Post Procedure Vital Signs Vital Signs: Temp Pulse Pulse Resp BP Pulse Ox O2 Del Method 07/08/25 15:30 79 13 127/86 92 Room Air 07/08/25 15:20 87 14 138/84 93 Room Air 07/08/25 15:13 36 C L 86 18 127/90 94 Room Air 07/08/25 13:25 36.9 C 81 20 126/82 95 Room Air 07/08/25 07:28 36.7 C 85 16 128/86 95 Room Air 07/07/25 23:00 36.8 C 72 16 111/72 95 Room Air Pain Intensity Right Flank: Pain Intensity: 4 Transfer of Care Handoff Completed per policy Notes Mental Status: alert / awake / arousable and participated in evaluation Patient Amnestic to Procedure: Yes Nausea / Vomiting: adequately controlled Pain: adequately controlled Airway Patency, RR, SpO2: stable & adequate BP & HR: stable & adequate Hydration State: stable & adequate Anesthetic Complications: no major complications apparent
[2025-07-08] MEDS ORDERED: Nursing to Pharmacy Communication SCH (23:45)
[2025-07-09 07:21] VITALS: BP 111/75; PULSE 75; RESP 16; TEMP 98.2; O2SAT 95
[2025-07-09 07:24] LABS: Hematocrit (blood only) 41.7 % (37.0-47.0); Hemoglobin 13.9 g/dl (12.0-16.0); Immature Granulocytes # (auto) 0.05 K/uL (0.01-0.20); Immature Granulocytes % (auto) 0.3 %; Mean Corpuscular Hemoglobin 29.6 pg (25.0-34.0); Mean Corpuscular Volume 88.7 fL (80.0-100.0); Platelet Count 221 K/uL (130-400); RDW Standard Deviation 44.1 fL (36.4-46.3); Red Blood Count 4.70 M/uL (4.20-5.40); White Blood Count 14.48 K/ul (4.8-10.8)
[2025-07-09 07:52] LABS: Anion Gap 6.0 (3-11); Calcium 8.3 mg/dl (8.6-10.3); Carbon Dioxide 23.0 mmol/L (21-32); Chloride 108.0 mmol/L (98-107); Potassium 4.4 mmol/L (3.5-5.1); Sodium 137.0 mmol/L (136-145)
[2025-07-09 07:58] LABS: Blood Urea Nitrogen 20.0 mg/dl (6-23); Creatinine Clr Calc Pharmacy 91.8 ml/min; Glucose 92.0 mg/dl (70-99(Fasting))
--- NOTE | 2025-07-09 08:38 | XRay Report ---
XR orbits for MRI CLINICAL HISTORY: Screening for foreign body for MRI COMPARISON STUDY: None FINDINGS: No metallic foreign bodies seen at the orbits. There is a possible old appearing fracture a t the nasal bone. Paranasal sinuses are grossly clear. IMPRESSION: No metallic foreign body seen at the orbits. ACT 112: Negative or not required by law. Electronically signed by: Lorenzo Zamarripa M.D. 07/09/2025 8:37 AM
--- NOTE | 2025-07-09 09:55 | Urology Progress Note ---
Date of Service July 09, 2025 Assessment & Plan (1) Right flank pain: (2) Nephrolithiasis: Plan: - Pt POD#1 s/p Cystoscopy with Right Ureteroscopy, Laser Lithotripsy, stone basket extraction, retrograde pyelogram, and Right Stent Exchange - Doing well, progressing as expected - Afebrile, hemodynamically stable - Lab work reviewed - creatinine 0.87, WBC 14.48 - Tolerating right ureteral stent with some bother - Okay to d/c from perspective when medically stable - Recommend d/c with course of PO antibiotics, Tamsulosin, prn Pyridium and prn pain medication for stent management - Expected clinical course reviewed, all questions answered - Will arrange outpatient follow-up with our service - will sign off, please contact our office with additional questions or concerns Admission and Anticipated Discharge Date Admission Date: July 06, 2025 Subjective Patient seen and examined at bedside this morning. She is awake and sitting up in bed. Subjectively feeling better today. Continues to have back pain and is pending imaging of her spine. She is voiding spontaneously. Notes hematuria postprocedure. No fever or chills. Review of Systems Constitutional: as per Subjective / HPI Genitourinary: as per Subjective / HPI Physical Exam Constitutional: well developed and well nourished; no acute distress Respiratory: normal respiratory effort; no respiratory distress and no labored breathing Gastrointestinal (Abdomen): Inspection/Auscultation: abdomen normal to inspection Musculoskeletal: Head/Neck/Chest: normocephalic Neurologic: moves all extremities and awake Psychiatric: Orientation: alert and oriented x 3 Results & Data Vital Signs (Past 12 Hours) Vital Signs Temp Pulse Resp BP Pulse Ox O2 Del Method O2 Flow Rate 07/09/25 09:00 Nasal Cannula 2 07/09/25 07:19 36.8 C 75 16 111/75 95 Nasal Cannula 2 07/09/25 03:23 36.7 C 81 14 106/62 96 Nasal Cannula 2 07/08/25 23:16 36.6 C 79 16 114/72 94 Nasal Cannula 2 PG Care Time/CCT Total # of Minutes Spent Total Time Spent with Patient: Total time spent is greater than 50% in coordination of care (as documented) at patient's floor/unit and/or counseling patient: Coding Level of Care Code 18920 SUB INP/OBS CARE 1/25MIN Diagnoses Right flank pain R10.9 Nephrolithiasis N20.0
--- NOTE | 2025-07-09 10:38 | Magnetic Resonance Report ---
MRI OF THE LUMBAR SPINE WITHOUT IV CONTRAST CLINICAL HISTORY: Low back pain. Fecal incontinence. Left lower extremity deficit. COMPARISON STUDY: Abdominal CT dated 06/01/2025. TECHNIQUE: MRI of the lumbar spine is performed utilizing various T1 and T2-weighted sequences in the axial and sagittal planes. IV contrast was not administered for this examination. FINDINGS: Lumbar spine: Vertebral body height and alignment are maintained throughout the lumbar spine. The tra nsverse and spinous processes appear intact. There is no evidence of spondylolysis. Small hemangiomas are noted in the bodies of L3, L5, and S1. No destructive bony lesion is seen. Intervertebral discs: Normal in height and signal intensity. Spinal cord: The imaged spinal cord is normal in morphology and signal intensity. The conus medullari s terminates at the L2-L3 interspace. The nerve roots of the cauda equina are normal in morphology. L1-L2: Unremarkable. L2-L3: Unremarkable. L3-L4: Mild facet arthropathy is of no consequence. The central canal and neural foramina are patent. L4-L5: Mild facet arthropathy is of no consequence. The central canal and neural foramina are patent. L5-S1: Unremarkable. Sacrum: The imaged sacrum is normal in morphology and signal intensity. Soft tissues: The paraspinous soft tissues are within normal limits. Right-sided hydronephrosis persi sts. The retroperitoneal structures are otherwise grossly unremarkable but incompletely evaluated. IMPRESSION: 1. There is no disc herniation, central canal stenosis, or neural foraminal narrowing seen throughout the lumbar spine. 2. No destructive bony process is seen. 3. Right-sided hydronephrosis persists. Electronically signed by: Jamel Lloyd M.D. 07/09/2025 10:35 AM
[2025-07-09] MEDS: ACETAMINOPHEN 500 MG TAB PO PRN (12:10)
--- NOTE | 2025-07-09 13:02 | Discharge Summary ---
Discharge Summary Date of Service July 09, 2025 Principal Dx & Hospital Course #1 = Principal Diagnosis (1) Right flank pain: (2) UTI (urinary tract infection): (3) Hematuria: (4) Nephrolithiasis: Plan This patient is a 40-year-old female who presented on 07/06 for acute right flank pain. She has a known right kidney stone with (approximately 1 cm); underwent stent placement with Dr. Aguila on 06/01 with planned follow-up for stone extraction. #Intractable right flank pain | nephrolithiasis Afebrile; VSS KUB on arrival revealed right ureteral stent in place/well-positioned Patient was originally scheduled for stone extraction on July 22, but has been unable to tolerate the pain at home Urology consult appreciated Underwent cystoscopy and laser lithotripsy on 07/[address] Nick Recommended acetaminophen at time of discharge, short course of oxycodone 5 mg as needed x 5 tablets as needed for breakthrough pain Follow-up with urology as an outpatient # Ongoing back pain | LLE strength deficits | head bobbing Patient relates history of falling down a flight of stairs on May 08; no designated imaging of the lumbar spine after fall Since this time, she has had recurrent lower back pain + LLE deficits 3/5 strength with plantar/dorsiflexion of left ankle when compared to right; ?cogwheel rigidity in the ankle She also reported 1 episode of fecal incontinence prior to admission; while this was in the setting of "diarrhea" where she was "unable to get to the bathroom in time", feel this is abnormal given patient's age Ordered lumbar spine MRI, which did not reveal disc herniation, neuroforaminal narrowing, or destructive bony process Unclear etiology; recommend follow-up with neurology in the next 1 to 2 weeks #UTI Failure of outpatient antibiotics (cefdinir course on 06/13 and doxycycline course on 06/24) Ceftriaxone 2000 mg IV q24h x 3 days inpatient UCx drawn on 07/06 without growth; ? Potentially clear in the setting of recent oral antibiotics use Clinically, patient endorsed burning with urination on arrival, but reports this is resolved at time of discharge Most recent urine culture on 06/11 grew Staphylococcus epidermis (resistant to Bactrim; sensitive to oxacillin) Will plan to send patient home on cephalexin 500 mg p.o. 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 Multani reports her symptoms are significantly improved from the day prior. She still having 4 out of 10 back pain, but reports it is mainly on the left lower back. No flank pain or radiation around the right flank. She is happy to report that her burning with urination has resolved. She is still having "pink" /blood-tinged urine, but was told this was normal following a urologic procedure. Overall, she does feel ready to go home today. She is just anxious about needing to come back to the hospital. Patient was also requiring short term dose of oxycodone to manage her pain at home. Patient denies prior penicillin allergies and reports that she tolerated the Rocephin well in the hospital; okay with taking Keflex at home. Additionally, in regards to her left lower extremity deficits, patient reports that they have been ongoing for a long period of time; no prior history of stroke, and patient denies slurred speech, facial droop, or other unilateral deficits. She reports she is still not had a bowel movement since being in the hospital, but attributes this to the narcotic she received while inpatient; she does report she has MiraLAX and Dulcolax at home that she will use as needed. She also reports that she does have transport home available today ("[employer]") and would not need to drive herself. ROS: Patient endorses left lower back pain, hematuria, and decreased strength in the left lower extremity when compared to the right. Patient denies fever, chills, night sweats, chest pain, SOB, cough, abdominal pain, N/V/D, burning with urination (resolved), or numbness/tingling/sensation deficits in the right versus left lower extremity. Disposition: Discharge home Notes For Next Care Provider Patient was hospitalized for pain control for a known 1 cm right-sided kidney stone. Stent was originally placed with Dr. Aguila on 06/01 with plan follow- up for stone extraction on July 22, however she was not able to tolerate the pain at home. She was also treated for a UTI while inpatient (Rocephin 2000 mg IV x 3 days). Patient underwent a cystoscopy with laser lithotripsy on 07/[address] Nick. New prescriptions on discharge: - Cephalexin 500 mg twice daily x 3 additional days - Oxycodone 5 mg tablets daily PRN x 5 tablets Prior to her transitional care appointment, we recommend that she obtain a CBC to assess her leukocytosis (14.48 at time of discharge) as well as her hemoglobin levels (13.9 at time of discharge) in the setting of hematuria. Additionally, patient was found to have left lower extremity deficits on exam (see physical exam on discharge below). A lumbar spine MRI was obtained that did not reveal any acute findings. Unclear etiology, but patient believes it may be secondary to her fall down a flight of stairs on May 08. Unclear if this is MSK. No prior history of stroke; patient denies slurred speech, facial droop, or strokelike symptoms. Recommend that patient follow-up with neurology on an outpatient basis if this does not resolve independently. Admission HPI Per Admitting Provider Mrs. Multani is a 40-year-old female with PMH of HLD, GERD, anxiety, HPV, kidney stones, and right sided hydronephrosis. Patient recently had a urinary stent placed on 06/[address] Aguila. Since that time, she has had intermittent right sided flank pain, recurrent episodes of burning with urination, and episodes of hematuria. Patient reports that her right flank pain was a 10 out of 10 prior to coming to the hospital, but is currently a 1 out of 10 after receiving IV pain medication in the emergency department. She characterizes it as a "gripping" pain with radiation from her low back along the flank down towards her groin. She was taking Tylenol 500 mg tablets (5 to 6 tablets/day) to help alleviate the pain, but this stopped working after a while. She is unsure if she has had fevers at home in the setting of frequent Tylenol use. She also reports she tried a CBD gummy 1 night, to help with the pain, but this only temporarily alleviated her pain. Patient has recently completed courses of cefdinir (prescribed on 06/13), and doxycycline (prescribed on 06/24) for an ongoing/lingering UTI. She does endorse burning with urination at this time, as well as hematuria x 2 weeks. Patient took her regular morning medication today. Besides her antibiotics, there have been no recent change in her medications. No missed doses. She does manage her medicine at home. Patient is a current everyday tobacco cigarette smoker; 1 PPD. She denies any recent alcohol use. She had 1 episode of bowel incontinence yesterday, but reports this is not new for her in the setting of loose stool (has happened a couple times over the past 5 years). Patient does report she had a fall down a flight of steps on May 08, but reports having imaging of her spine in May; she denies any injuries to her abdomen, pelvis, or back since that time. Patient's vitals are stable at time of admission. ED course: NSS 1000 mL IV Morphine sulfate 4 mg IV Zofran 4 mg IV Toradol 10 mg IV Ceftriaxone 2000 mg IV ROS: Patient endorses headache, lightheadedness, dizziness, right LBP with radiation to the abdomen, burning with urination, hematuria, and dysuria. Patient denies fever, chills, night-sweats, nausea, vomiting, saddle anesthesia, blood in stool, or melena. Admission Exam Per Admitting Provider General: no acute distress; fatigued; non-toxic appearing; well-nourished; cooperative; SpO2 94% on RA HEENT: normocephalic, atraumatic; no scleral icterus; PERRLA; vision and hearing grossly intact Neck: supple; no lymphadenopathy; trachea midline Skin: warm, dry without signs of tenting; no cyanosis; no rashes, bruising, lesions, or erythema noted CV: chest wall NTP; RRR; S1/S2 normal; no murmurs/rubs/gallops; pulses intact and symmetric at radial, DP, and PT Lungs: no acute respiratory distress; symmetrical chest wall expansion; clear breath sounds across all lung cuevas w/o adventitious sounds; no wheezing ABD: Soft, TTP in the right flank and lower quadrant; BS present; no rebound/guarding; no distention; no rashes or bruising appreciated in the abdomen or flanks bilaterally Back: Positive CVA tenderness on the right side MSK: no tics or fasciculations; no edema noted in the LEs b/l, nonerythematous; patient demonstrates good to wiggle toes, plantarflex, and dorsiflex bilaterally against resistance Neuro: A&Ox3; normal mood and affect; fluent speech; no focal deficits; patient reports sensation is intact and symmetric in lower extremities bilaterally assessed via light touch Discharge Exam General: no acute distress; pleasant affect; anxious; ? Head bobbing; non-toxic appearing; cooperative; SpO2 92% on RA HEENT: normocephalic, atraumatic; no scleral icterus; PERRLA; vision and hearing grossly intact Neck: supple; trachea midline Skin: warm, dry without signs of tenting; no cyanosis; no rashes, bruising, lesions, or erythema noted CV: chest wall NTP; RRR; S1/S2 normal; no murmurs/rubs/gallops; pulses intact and symmetric at radial, DP, and PT Lungs: no acute respiratory distress; symmetrical chest wall expansion; clear breath sounds across all lung cuevas w/o adventitious sounds; no wheezing ABD: Soft, TTP in the right flank and lower quadrant; BS present; no rebound/guarding; no distention; no rashes or bruising appreciated in the abd omen Back: Negative CVA tenderness on the right side; left lower back is mildly TTP; no bruising appreciated on the back or flanks MSK: ? Essential tremor in the head/neck; no edema noted in the LEs b/l, nonerythematous LLE: patient exhibits decreased 3/5 strength with plantar/dorsiflexion of the left ankle. She exhibits rigidity in the left ankle and left knee; ? Cogwheel rigidity in the left ankle; RLE: Patient exhibits 5/5 strength with plantar/dorsiflexion in the right ankle; no deficits appreciated Neuro: A&Ox3; normal mood and affect; fluent speech; no slurred speech; no facial droop; patient reports sensation is intact and symmetric in lower extremity bilaterally assessed via light touch at the toes, ankles, and knees Discharge Plan Discharge Items Patient Disposition: Home - Self-Care Reason For Visit: INTRACTABLE R FLANK PAIN Discharge Diagnosis: Obstructing right nephrolithiasis, intractable right flank pain Condition on Discharge: Fair Activity: Resume your previous activity Non-emergency contact: Primary Care Provider Call non-emergency contact if: you have any medication questions, your symptoms worsen, your pain is not controlled, your pain is worsening, your pain is unusual for you and you have a fever Follow-up/Referrals: Reji Najera DO [Primary Care Provider] - Diet: Regular Addtl Attending Provider Instructions: You were hospitalized at [facility] from 07/06 - 07/09 due to right flank pain related to a known obstructing kidney stone. You were originally scheduled to have a stone extraction on July 22, but reported that you are unable to tolerate the pain at home. On arrival, your urine appeared infected, and you were covered with an IV antibiotic called Rocephin for urinary tract infection. You also underwent a procedure called a "cystoscopy" with laser lithotripsy with our urology team (Dr. Nick) to breakdown the stone. While you reported blood in your urine, your hemoglobin levels remained stable, and are currently within normal limits (13.9) at time of discharge (normal reference range 12-16). Given your vitals are stable, and you report your pain is under better control, we feel that you are safe to return home at this time. New prescriptions on discharge: - Cephalexin 500 mg twice daily x 3 additional days - Oxycodone 5 mg tablets daily NEEDED for breakthrough pain (scale 7-10) Note: Oxycodone is an opioid analgesic. Please do not operate heavy machinery or drive while taking. It is recommended that you complete the full course of antibiotics (cephalexin) even if you begin to feel better or if your burning with urination completely resolves. Please plan to follow-up with your PCP in the next 7 to 10 days for a transitional care appointment. Prior to this appointment, we recommend you have blood work drawn to reassess your hemoglobin and white blood cell count levels. We also recommend that you follow-up with a neurologist in the next 1 to 2 weeks for new left leg/ankle deficits that were noticed while you are in the hospital. A lumbar spine MRI was obtained while you are in the hospital, but this did not reveal any acute findings (no bony abnormalities, no disc herniation, etc.). If you develop any new or worsening symptoms, such as fever, chills, intractable right flank pain, nausea, vomiting, or recurrence of burning with urination, please return to the emergency department immediately. It was a pleasure taking care of you. Please reach out any questions concerns. Sincerely, The hospital medicine team at [facility] Pending Studies at Discharge: No Stand-Alone Forms: My [facility], Smoking Cessation Medications and DC Order Prescriptions: New oxycodone 5 mg tablet 5 mg PO DAILY PRN (Reason: pain) Qty: 5 0RF Rx Instructions: Take 1 tablet by mouth daily as needed for severe/breakthrough lower back pain (scale 7-10) Do not operate heavy machinery or drive a vehicle while taking cephalexin 500 mg capsule 500 mg PO BID 3 Days Qty: 6 0RF Rx Instructions: Take 1 capsule by mouth twice daily x 3 days Continued (DME) Abdominal Binder to be determined See Rx Instructions .Route .MEDSUPPLY Qty: 1 0RF Rx Instructions: As directed albuterol sulfate [Ventolin HFA] 90 mcg/actuation HFA aerosol inhaler 2 inh INH QID PRN (Reason: shortness of breath or wheezing) Qty: 8.5 0RF fluticasone propionate [Flonase Allergy Relief] 50 mcg/actuation spray,suspension 1 spray intranasal BID Qty: 16 5RF Rx Instructions: administer into each nostril epinephrine [EpiPen 2-Medardo] 0.3 mg/0.3 mL auto-injector 0.3 mg IM ONCE PRN (Reason: anaphylaxis) Qty: 2 1RF Rx Instructions: Go to emergency department after use. (DME) OneTouch Verio test strips Strip See Rx Instructions .MEDSUPPLY Qty: 150 5RF Rx Instructions: check blood sugars 4 times a day (DME) blood-glucose meter [OneTouch Verio Reflect Meter] Misc See Rx Instructions miscellaneous .MEDSUPPLY Qty: 1 0RF Rx Instructions: As directed (DME) lancets [OneTouch Delica Plus Lancet] 33 gauge misc See Rx Instructions .Route Qty: 100 5RF Rx Instructions: use daily As directed 4 times daily DX:E11.9 cholecalciferol (vitamin D3) 125 mcg (5,000 unit) capsule 125 mcg PO DAILY famotidine 40 mg tablet 40 mg PO DAILY Qty: 30 11RF sertraline 100 mg tablet 100 mg PO DAILY Qty: 90 2RF Rx Instructions: Take 1 tablet by mouth daily pantoprazole [Protonix] 40 mg tablet,delayed release (DR/EC) 40 mg PO DAILYBB Rx Instructions: 30 mins before breakfast on an empty stomach azelastine 137 mcg (0.1 %) spray,non-aerosol 1 - 2 spray intranasal .1-2 TIMES A DAY Rx Instructions: USE 1-2 SPRAYS EACH NOSTRIL 1-2 TIMES DAILY; administer into each nostril; oxymetazoline [Afrin Sinus (oxymetazoline)] 0.05 % [place],Non-Aerosol 2 spray INTRANASAL Q12H PRN (Reason: Allergic Symptoms) Prevalite 4 gram powder in packet 4 g PO BID Rx Instructions: administer w/meal; avoid other meds within 1hr before or 4-6hr after dose Allergy Medication 1 cap PO DAILY Patient Comments: OTC unknown dose/type phenazopyridine [Pyridium] 100 mg tablet 100 mg PO TID PRN (Reason: pain) Qty: 30 0RF Discharge Orders: Discharge Order (Routine); Ordered 07/09/25 Ordered By: Martín Menon Admission Data Admit Date/Time: 07/06/25 16:36 Attending Provider: Dk De La O Admit Provider: Dk De La O Primary Care Provider: Reji Najera Other Providers: Oumar Madrid; Bryce Szymanski Hospital Stay Data Consultations 07/06/25 15:11 ED Decision to Admit Stat 07/06/25 21:52 Consult Urology Routine Procedures Performed Operation Date: 07/08/25 13:15 Actual Procedures p Cystoscopy, Right Ureteroscopy, Laser Lithotripsy, (Right) - Lexa Nick DO s Right Stent Exchange(Right) - Lexa Nick DO Diagnostic Imagining Performed 07/08/25 [place] retrograde includes kub Routine 07/09/25 08:02 MR lumbar spine wo con Routine Discharge Instructions Given to Patient (Per Discharging Provider) You were hospitalized at [facility] from 07/06 - 07/09 due to right flank pain related to a known obstructing kidney stone. You were originally scheduled to have a stone extraction on July 22, but reported that you are unable to tolerate the pain at home. On arrival, your urine appeared infected, and you were covered with an IV antibiotic called Rocephin for urinary tract infection. You also underwent a procedure called a "cystoscopy" with laser lithotripsy with our urology team (Dr. Nick) to breakdown the stone. While you reported blood in your urine, your hemoglobin levels remained stable, and are currently within normal limits (13.9) at time of discharge (normal reference range 12-16). Given your vitals are stable, and you report your pain is under better control, we feel that you are safe to return home at this time. New prescriptions on discharge: - Cephalexin 500 mg twice daily x 3 additional days - Oxycodone 5 mg tablets daily NEEDED for breakthrough pain (scale 7-10) Note: Oxycodone is an opioid analgesic. Please do not operate heavy machinery or drive while taking. It is recommended that you complete the full course of antibiotics (cephalexin) even if you begin to feel better or if your burning with urination completely resolves. Please plan to follow-up with your PCP in the next 7 to 10 days for a transitional care appointment. Prior to this appointment, we recommend you have blood work drawn to reassess your hemoglobin and white blood cell count levels. We also recommend that you follow-up with a neurologist in the next 1 to 2 weeks for new left leg/ankle deficits that were noticed while you are in the hospital. A lumbar spine MRI was obtained while you are in the hospital, but this did not reveal any acute findings (no bony abnormalities, no disc herniation, etc.). If you develop any new or worsening symptoms, such as fever, chills, intractable right flank pain, nausea, vomiting, or recurrence of burning with urination, please return to the emergency department immediately. It was a pleasure taking care of you. Please reach out any questions concerns. Sincerely, The hospital medicine team at [facility] Total Time Total Time Spent Total Time Spent (In Minutes): 35 C[place] [address] INP/OBS DISCH >30 MIN Patient Type Established History Comprehensive Exam Comprehensive Medical Decision Making Moderate Complexity Diagnoses Right flank pain R10.9 UTI (urinary tract infection) N39.0 Hematuria R31.9 Nephrolithiasis N20.0
== END 2025-07-09 14:30 | disposition home or self-care (01) | DRG 660 ==
LOC: SUATTDRO → ED 13:45 → 3N 16:36
DX: Z91.040 Latex allergy status; F17.200 Nicotine dependence, unspecified, uncomplicated; K21.9 Gastro-esophageal reflux disease without esophagitis; N39.0 Urinary tract infection, site not specified; N20.2 Calculus of kidney with calculus of ureter; E11.9 Type 2 diabetes mellitus without complications; Z88.6 Allergy status to analgesic agent; F41.9 Anxiety disorder, unspecified